=== PATIENT | female | born 1960 | race Caucasian/White ===

== ENCOUNTER 2019-08-17 12:55 | Outpatient (CLI) | payer OTHER, SELFPAY | END 2019-08-17 12:56 | disposition home or self-care (01) | LOC: CHSCARD 12:59 | PROVIDERS: Visit Provider Internal Medicine Pulmonary Disease | DX: J44.9 Chronic obstructive pulmonary disease, unspecified (principal) | CPT/HCPCS: 94060; 94726; 94729; 95012 ==

== ENCOUNTER 2020-09-18 16:20 | Emergency (ER) | payer OTHER, SELFPAY ==
[2020-09-18] VITALS (17 sets, daily range): BP systolic 119–161; BP diastolic 69–122; PULSE 83–117; RESP 15–26; TEMP 36.2; O2SAT 70–100
--- NOTE | ~2020-09-18 | XR_ITS ---
EXAMINATION: XR chest 1V portable 09/18/2020 17:04 INDICATION: Shortness of breath. COPD. PROCEDURE: AP portable chest COMPARISON: Comparison to multiple prior studies sequentially, with oldest reviewed study dated 10/31. FINDINGS: The lungs are clear. The cardiomediastinal silhouette is within normal limits. There are no pleural effusions. There is no pneumothorax suspected. The lungs are hyperinflated which is consistent with, but not diagnostic of chronic obstructive pulmo nary disease. IMPRESSION: 1: NO ACUTE CARDIOPULMONARY DISEASE. Reviewed, dictated and finalized at location A.
--- NOTE | 2020-09-18 16:24 | ECG_ITS ---
Measurements Intervals [place] Rate: 102 P: 85 [place]: 129 QRS: 80 QRSD: 80 T: 76 QT: 304 QTc: 398 Interpretive Statements SINUS TACHYCARDIA VENTRICULAR PREMATURE COMPLEXES POSSIBLE RIGHT ATRIAL ENLARGEMENT LEFT ATRIAL ENLARGEMENT BORDERLINE R WAVE PROGRESSION, ANTERIOR LEADS BORDERLINE ST ABNORMALITY- INFERIOR LEADS BASELINE ARTIFACT- I, II, III, AVR, AVL, AVF, V1-V6 BORDERLINE ECG Electronically Signed On 09-18-2020 17:23:21 CDT by Prabhu Bhardwaj D.O.
[2020-09-18] MEDS: methylPREDNISolone SOD SUCC 125 MG VIAL IV PUSH (16:30)
[2020-09-18 16:43] LABS: Alveolar/Arterial O2 Gradient 39.5 mmHg; Fractional Inspired Oxygen 34 %; HCO3 ABG 33.5 mEq/l (22.0-26.0); Oxygen Content ABG 18.6 %vol (16.0-22.0); Oxygen Saturation ABG 98.4 % (95.0-100.0); Oxyhemoglobin 96.9 % THb (90.0-100.0); PO2 ABG 130.9 mmHg (80.0-100.0); PO2 FiO2 Ratio Arterial Blood 3.85 %; Total Hemoglobin 13.5 g/dL (12.0-18.0); pH ABG 7.352 (7.350-7.450)
[2020-09-18 16:46] LABS: Device ROOM AIR; Liters per Minute 3.5 LPM; Modified Allen's Test Pass; PCO2 ABG 61.8 mmHg (35.0-45.0); Site Drawn LEFT RADIAL
[2020-09-18 16:49] LABS: Basophils Absolute Auto 0.1 K/mm3 (0.0-0.1); Basophils Percent Auto 1.1 % (0.2-1.2); Eosinophils Absolute Auto 0.2 K/mm3 (0-0.3); Eosinophils Percent Auto 3.2 % (0-4.4); Hematocrit 43.5 % (37.0-47.0); Hemoglobin 13.7 g/dL (12.0-15.0); Immature Granulocyte Absolute 0.02 K/mm3 (0.00-0.031); Immature Granulocyte Percent A 0.3 % (0-0.5); Lymphocytes Absolute Auto 1.08 K/mm3 (0.9-3.2); Lymphocytes Percent Auto 14.6 % (18.3-44.2); Mean Corpuscular HGB Conc 31.5 g/dl (32-36); Mean Corpuscular Hemoglobin 29.8 pg (26-34); Mean Corpuscular Volume 94.6 fl (80-100); Mean Platelet Volume 9.8 fl (7.4-10.4); Monocytes Percent Auto 13.7 % (2.6-8.5); Neutrophils Percent Auto 67.1 % (45.5-73.1); Platelet Count Result 292 k/mm3 (150-375); Red Cell Distribution Width 12.4 % (11.5-14.5); White Blood Count 7.4 K/mm3 (4.5-10.0)
[2020-09-18] MEDS: IPRATROPIUM BR 0.02% INH SOLN 0.5 MG/2.5 ML VIAL INHALATION (16:52)
[2020-09-18] MEDS: ALBUTEROL SULFATE NEB 2.5 MG/0.5 ML INH 5 MG INHALATION (16:52)
[2020-09-18 16:57] LABS: INR 0.9; Prothrombin Time 12.3 Seconds (11.1-14.7)
[2020-09-18 17:00] LABS: Alanine Aminotransferase 48 U/L (4-35); Albumin Level 4.3 g/dL (3.5-5.1); Alkaline Phosphatase 101 U/L (38-126); Anion Gap 4 mmol/L (8-16); Aspartate Amino Transferase 35 U/L (14-36); Bilirubin,Total 0.4 mg/dL (0.2-1.3); Blood Urea Nitrogen 12 mg/dL (7-17); Calcium 9.4 mg/dL (8.4-10.2); Carbon Dioxide 38 mmol/L (22-30); Chloride 97 mmol/L (98-107); Estimated CRCL calculation 77 ml/min; Estimated Glomerular Filt Rate > 60; Glucose 113 mg/dL (65-105); Potassium 4.4 mmol/L (3.4-5.0); Sodium 139 mmol/L (137-145)
[2020-09-18 17:11] LABS: NT Pro B Type Natriuretic Pept 124 PG/ML (5-100); Troponin I < 0.012 ng/mL (0.000-0.034)
--- NOTE | 2020-09-18 17:58 | ED.SOB ---
HPI - SOB/Dyspnea General Chief Complaint: Shortness of Breath/Dyspnea Stated Complaint: low o2 sat/sob Time Seen by Provider: 09/18/20 16:24 Source: patient Mode of arrival: wheelchair Limitations: no limitations History of Present Illness HPI Narrative: 60-year-old with a history of COPD on 3 L of home oxygen here with complaints of up shortness of breath since this afternoon. Patient states that her O2 saturations at home are in the 70%. She denies any unusual cough, fever or chills. No history of chest pain or Covid exposure. Patient states that she has an appointment with her airport baggage screener this week. MD elicited complaint: shortness of breath Onset (ago): hour(s) (5) Exacerbating factors: nothing Relieving factors: nothing Known history of: COPD Associated symptoms: denies other symptoms Related Data Home Medications Medication Instructions Recorded Confirmed albuterol sulfate 90 mcg/actuation 1 puff INHALATION Q4H PRN 08/31/19 aerosol inhaler anastrozole 1 mg tablet 1 mg PO DAILY 08/31/19 cholecalciferol (vitamin D3) 25 25 mcg PO DAILY 08/31/19 mcg (1,000 unit) tablet denosumab 60 mg/mL subcutaneous 60 mg SUB-Q [id number] 08/31/19 syringe ipratropium 0.5 mg-albuterol 3 mg 3 ml INHALATION Q4H PRN 08/31/19 (2.5 mg base)/3 mL nebulization soln fluticasone fur. 200 mcg-umeclid 1 inh INHALATION DAILY 09/13/20 62.5 mcg-vilant 25 mcg inhalat.powder Allergies Allergy/AdvReac Type Severity Reaction Status Date / Time No Known Allergies Allergy Unknown Verified 09/18/20 16:27 Review of Systems Review of Systems: All systems reviewed & are unremarkable except as noted in HPI and below Constitutional: Constitutional: Reports no additional constitutional complaints Eyes: Eyes: Reports no additional eye complaints ENT: Reports system reviewed and no additional complaints, except as documented Cardiovascular: Cardiovascular: Reports no additional cardiovascular complaints Respiratory: Respiratory: Reports as per HPI Gastrointestinal: Gastrointestinal: Reports no additional gastrointestinal complaints Musculoskeletal: Musculoskeletal: Reports no additional musculoskeletal complaints Neurologic: Reports system reviewed and no additional complaints, except as documented [facility] Past Medical History Medical History (Updated 09/18/20 @ 18:06 by Ivan Lozano MD) Breast cancer Right Breast Removed. SP Chemo. Completed Radiation 07-10-18. COPD (chronic obstructive pulmonary disease) Depression History of DVT (deep vein thrombosis) Nicotine dependence Quit 2019 Underweight Surgical History Surgical History History of cholecystectomy History of hysterectomy History of repair of rotator cuff Right Shoulder Family History Family History Other Diabetes mellitus Social History Social History Smoking packs per day: 1 Smoking cigarettes per day: 20.0 Years smoked: 45 Smoking pack-years: 45.00 Smoking status: Former smoker Tobacco type: cigarettes Alcohol intake: current Additional occupation/education comments: Employed at [employer] Gender identity (if verbalized by the patient): Female Exam Narrative: Exam Narrative: GENERAL: Thin in mild respiratory distress and anxious HEAD: Normocephalic, atraumatic. EYES: PERRLA and EOMI. ENT: Nares clear, no rhinorrhea or epistaxis. Mucous membranes moist. NECK: Supple. CHEST: Tachypneic, bilateral wheezing and poor air entry HEART: Regular rate and rhythm. No murmur heard. Normal peripheral pulses. ABDOMEN: Soft, nontender, nondistended, normal active bowel sounds. EXTREMITIES: Normal range of motion. No edema. SKIN: Warm, dry, no rash. NEURO: No focal deficits. Alert and oriented x3. PSYCH: Normal mood and affect. Course Course Emergency Course
== END 2020-09-18 18:40 | disposition home or self-care (01) ==
PROVIDERS: Emergency Provider Family Medicine; PCP Family Medicine
DX: J44.1 Chronic obstructive pulmonary disease with (acute) exacerbation (principal); Z99.81 Dependence on supplemental oxygen; Z87.891 Personal history of nicotine dependence; Z85.3 Personal history of malignant neoplasm of breast; Z90.11 Acquired absence of right breast and nipple; Z92.21 Personal history of antineoplastic chemotherapy; Z92.3 Personal history of irradiation
CPT/HCPCS: 36415; 36600; 71045; 80053; 82805; 83880; 84484; 85025; 85610; 87040; 93005; 94640; 96374; 99284; J2930

== ENCOUNTER 2020-10-03 12:28 | Observation (INO) | payer OTHER, SELFPAY ==
[2020-10-03] VITALS (18 sets, daily range): BP systolic 109–126; BP diastolic 70–81; PULSE 55–102; RESP 18–34; TEMP 35.8–36.7; O2SAT 90–98; BMI 21.5
--- NOTE | ~2020-10-03 | XR_ITS ---
XR chest 1V portable 10/03/2020 12:59 Indication: Dyspnea. COPD. Procedure: AP portable chest Comparison: Comparison to multiple prior studies sequentially, with oldest reviewed study dated 01/2019. Findings: Heart size normal. No focal air space disease, pulmonary edema, pleural effusion or suspect ed pneumothorax. Calcified granuloma left lower lung. Impression: 1: No acute cardiopulmonary disease. Reviewed, dictated and finalized at location B. Impression: 1: No acute cardiopulmonary disease.
--- NOTE | 2020-10-03 12:35 | ECG_ITS ---
Measurements Intervals [place] Rate: 94 P: 78 [place]: 124 QRS: 57 QRSD: 79 T: 59 QT: 337 QTc: 421 Interpretive Statements SINUS RHYTHM POSSIBLE RIGHT ATRIAL ENLARGEMENT POSSIBLE LEFT ATRIAL ENLARGEMENT DELAYED PRECORDIAL R/S TRANSITION BORDERLINE ST ABNORMALITY- INFERIOR LEADS BASELINE ARTIFACT- AVL, AVF, V4-V6 BORDERLINE ECG Electronically Signed On 10-03-2020 13:27:16 CDT by Prabhu Bhardwaj D.O.
[2020-10-03 13:13] LABS: Base Excess ABG 15.3 mmol/L (0-2); HCO3 ABG 45.2 mmol/L (23-29); Oxygen Content ABG 16.4 %vol (16.0-22.0); Oxygen Saturation ABG 90.3 % (95-97); Oxyhemoglobin 89.1 % (94-100); PO2 ABG 59.1 mmHg (80-90); Total Hemoglobin 13.1 g/dL; pH ABG 7.34 (7.35-7.45)
[2020-10-03 13:18] LABS: Basophils Absolute Auto 0.05 K/mm3 (0.00-0.10); Basophils Percent Auto 0.6 % (0.0-1.0); Eosinophils Absolute Auto 0.05 K/mm3 (0.02-0.50); Eosinophils Percent Auto 0.6 % (1.0-6.0); Hematocrit 39.6 % (35.0-49.0); Hemoglobin 12.1 g/dL (12.0-15.0); Immature Granulocyte Absolute 0.05 K/mm3 (0.00-0.00); Immature Granulocyte Percent A 0.6 % (0.0-0.0); Lymphocytes Absolute Auto 0.51 K/mm3 (1.10-4.50); Lymphocytes Percent Auto 5.8 % (18.0-42.0); Mean Corpuscular HGB Conc 30.6 g/dL (32.0-36.0); Mean Corpuscular Hemoglobin 30.2 pg (27.0-31.0); Mean Corpuscular Volume 98.8 fL (78.0-102.0); Mean Platelet Volume 9.7 fl (9.2-11.8); Monocytes Absolute Auto 0.78 K/mm3 (0.10-0.90); Monocytes Percent Auto 8.9 % (2.0-11.0); Neutrophils Absolute Auto 7.3 K/mm3 (1.7-7.2); Neutrophils Percent Auto 83.5 % (50.0-70.0); Platelet Count Result 252 K/mm3 (150-420); Red Blood Count 4.01 M/mm3 (4.20-5.40); Red Cell Distribution Width 12.4 % (11.6-14.4); White Blood Count 8.7 K/mm3 (4.8-10.8)
[2020-10-03 13:22] LABS: PCO2 ABG 86.3 mmHg (35-45)
[2020-10-03 13:23] LABS: Device NASAL CANNULA; Modified Allen's Test Pass; Site Drawn LEFT RADIAL
[2020-10-03 13:29] LABS: Partial Thromboplastin Time 25.1 SEC (23.90-30.70); Prothrombin Time 10.3 Seconds (9.50-12.10)
[2020-10-03 13:33] LABS: D Dimer 0.59 mg/L (0.19-0.50)
[2020-10-03] MEDS: ALBUTEROL SULFATE (*SP) INHALER 4 PUFF INHALATION (13:33)
[2020-10-03 13:45] LABS: Alanine Aminotransferase 44 U/L (14-59); Albumin Level 2.8 g/dL (3.4-5.0); Alkaline Phosphatase 77 U/L (46-116); Anion Gap 3 mmol/L (8-16); Aspartate Amino Transferase 19 U/L (15-37); Bilirubin,Total 0.4 mg/dL (0.00-1.00); Blood Urea Nitrogen 16 mg/dL (7-18); Calcium 9.4 mg/dL (8.5-10.1); Carbon Dioxide 42 mmol/L (21-32); Chloride 94 mmol/L (98-108); Estimated Glomerular Filt Rate > 60; Glucose 125 mg/dL (70-99); Osmolality Calculated 290 mOsm/kg (285-295); Potassium 4.2 mmol/L (3.5-5.1); Sodium 139 mmol/L (136-145); Total Protein 7.4 g/dL (6.4-8.2); Troponin I 9.9 ng/L (0.00-60.4)
[2020-10-03 13:59] LABS: SARS-CoV-2 RNA PCR Negative (Negative)
--- NOTE | 2020-10-03 14:00 | ED.SOB ---
HPI - SOB/Dyspnea General Chief Complaint: Shortness of Breath/Dyspnea Stated Complaint: ambulance Time Seen by Provider: 10/03/20 12:30 Source: patient and EMS Mode of arrival: EMS Limitations: no limitations History of Present Illness HPI Narrative: 60-year-old woman with a history of COPD brought to the emergency department by EMS after calling with a complaint of severe shortness of breath. EMS said that her sats were in the 80s on arrival but she responded well to nebulizer and her 25 of Solu-Medrol. Patient states she has had no cough or cold symptoms, chest pain, fevers, sick exposures ( she lives alone), palpitations or syncope. Shortness of breath has gotten worse over last several days. She is on 3 L by nasal cannula at home. She has had the 1st of 2 SARs immunizations and has not had the influenza vaccine. She was seen at [facility] on September 18 for a similar issue. Patient states that she had blood in her stools approximately 1 week ago that was bright red and liquid. She states she also has been having excessive gas and so she is taking Pepto-Bismol daily. She has since noticed that she has black stools. MD elicited complaint: shortness of breath Pertinent past history: COPD Onset (ago): day(s) (2-3) Timing: constant Severity: severe Exacerbating factors: lying flat and exertion Relieving factors: oxygen and bronchodilators Known history of: COPD Associated symptoms: wheezing Treatment prior to arrival: oxygen, bronchodilator and other ( Solu-Medrol) Related Data Home oxygen amount: 3 liters Home Medications Medication Instructions Recorded Confirmed albuterol sulfate 90 mcg/actuation 1 puff INHALATION Q4H PRN 08/31/19 10/03/20 aerosol inhaler anastrozole 1 mg tablet 1 mg PO DAILY 08/31/19 10/03/20 cholecalciferol (vitamin D3) 25 25 mcg PO DAILY 08/31/19 10/03/20 mcg (1,000 unit) tablet denosumab 60 mg/mL subcutaneous 60 mg SUB-Q [id number] 08/31/19 10/03/20 syringe ipratropium 0.5 mg-albuterol 3 mg 3 ml INHALATION Q4H PRN 08/31/19 10/03/20 (2.5 mg base)/3 mL nebulization soln fluticasone fur. 200 mcg-umeclid 1 inh INHALATION DAILY 09/13/20 10/03/20 62.5 mcg-vilant 25 mcg inhalat.powder Allergies Allergy/AdvReac Type Severity Reaction Status Date / Time No Known Allergies Allergy Unknown Verified 09/18/20 16:27 Review of Systems Review of Systems: All systems reviewed & are unremarkable except as noted in HPI and below Constitutional: Constitutional: Denies chills, Denies fever(s) and Denies weakness Eyes: Eyes: Denies change in vision and Denies photophobia ENT: Denies nasal congestion and Denies sore throat Cardiovascular: Cardiovascular: Denies chest pain, Denies rapid heart rate and Denies radiating jaw, neck or arm pain Respiratory: Respiratory: Denies cough, Reports dyspnea and Denies wheezing Gastrointestinal: Gastrointestinal: Denies abdominal pain and Denies vomiting Comments: black stools Genitourinary: Genitourinary: Denies hematuria and Denies dysuria Musculoskeletal: Musculoskeletal: Denies arthralgias and Denies joint swelling Integumentary/Breasts: Skin/Breast: Denies pruritus, Denies erythema and Denies rash Neurologic: Denies vertigo and Denies syncope Hematologic/Lymphatic: Hematologic/Lymphatic: Denies easy bleeding Allergic/Immunologic: Allergic/Immunologic: Denies lip swelling and Denies throat swelling [facility] Past Medical History Medical History (Updated 10/03/20 @ 14:46 by Chuy Whittington MD) Breast cancer Right Breast Removed. SP Chemo. Completed Radiation 07-10-18. COPD (chronic obstructive pulmonary disease) Depression History of DVT (deep vein thrombosis) Nicotine dependence Quit 2019 Underweight Surgical History Surgical History History of cholecystectomy History of hysterectomy History of repair of rotator cuff Right Shoulder Family History Fa
[2020-10-03 14:10] LABS: Influenza A QL RT-PCR Negative (Negative); Influenza B QL RT-PCR Negative (Negative)
[2020-10-03 14:14] LABS: Appearance Urine Sl Cloudy (Clear); Bilirubin Urine 1+ (Negative); Color Urine Yellow (Yellow); Glucose Urine UA Negative (Negative); Ketones Urine Trace (Negative); Leukocyte Esterase Ur Negative LEU/UL (Negative); Nitrate Urine Negative (Negative); Protein Urine 1+ (Negative); Specific Grav Ur >= 1.030 (1.010-1.020)
[2020-10-03 14:20] LABS: Add Urine Microscopic? YES; Bacteria Urine 3+ /hpf; Blood Urine Trace-Intact (Negative); RBC Urine 0-2 /hpf (0-2); Squamous Epithelial Cell Urine Rare /hpf (Few); WBC Urine None seen /hpf (0-3)
[2020-10-03 14:20] LABS: Occult Blood Negative (Negative)
--- NOTE | 2020-10-03 16:53 | PC.NURSE ---
60 year old white female admitted to floor room 204 from the ER with COPD exacerbation. Patient is on 3L/ NC at home. Patient becomes SOB with any movement. Patient lungs sound diminished throughout all lobes. C/O of dry cough, intermittently. Patient is currently in bed with oxygen on at 3L/NC. Patient denies any SOB at rest. Oriented patient to call light.
[2020-10-03] MEDS: PANTOPRAZOLE 40 MG TABLET PO (17:08)
[2020-10-03] MEDS: ENOXAPARIN 40 MG/0.4 ML SYRINGE SUB-Q (17:08)
[2020-10-03] MEDS: SODIUM CHLORIDE 0.9% IV 1,000 ML 60 ML IV CONT (17:46)
[2020-10-03] MEDS: methylPREDNISolone SOD SUCC 40 MG VIAL IV PUSH ×2 (17:46→21:55)
--- NOTE | 2020-10-03 17:57 | PC.NURSE ---
1750 Patient's friend brought patient's medication in. Patient took her Anastrozole 1mg and Calcium 600mg plus Vit D3. Dr. Whittington was notified patient took this medication.
[2020-10-03 18:14] LABS: Troponin I 7.6 ng/L (0.00-60.4)
[2020-10-03] MEDS: IPRATROPIUM 0.5 MG/ALBUTEROL SULFATE 2.5 MG AMPUL.NEB 3 ML INHALATION ×2 (18:58→22:55)
[2020-10-04] VITALS (20 sets, daily range): BP systolic 109–130; BP diastolic 52–76; PULSE 68–103; RESP 16–22; TEMP 35.7–36.6; O2SAT 82–100
[2020-10-04] MEDS: ACETAMINOPHEN 500 MG TABLET 1000 MG PO ×2 (00:19→09:22)
[2020-10-04 01:48] LABS: Troponin I 6.6 ng/L (0.00-60.4)
[2020-10-04] MEDS: IPRATROPIUM 0.5 MG/ALBUTEROL SULFATE 2.5 MG AMPUL.NEB 3 ML INHALATION ×4 (05:33→22:50)
[2020-10-04] MEDS: methylPREDNISolone SOD SUCC 40 MG VIAL IV PUSH ×3 (05:55→21:19)
[2020-10-04 06:43] LABS: Basophils Absolute Auto 0.01 K/mm3 (0.00-0.10); Basophils Percent Auto 0.1 % (0.0-1.0); Hematocrit 36.5 % (35.0-49.0); Hemoglobin 10.9 g/dL (12.0-15.0); Immature Granulocyte Absolute 0.03 K/mm3 (0.00-0.00); Immature Granulocyte Percent A 0.4 % (0.0-0.0); Lymphocytes Absolute Auto 0.36 K/mm3 (1.10-4.50); Lymphocytes Percent Auto 5.2 % (18.0-42.0); Mean Corpuscular HGB Conc 29.9 g/dL (32.0-36.0); Mean Corpuscular Hemoglobin 29.5 pg (27.0-31.0); Mean Corpuscular Volume 98.6 fL (78.0-102.0); Monocytes Absolute Auto 0.39 K/mm3 (0.10-0.90); Monocytes Percent Auto 5.7 % (2.0-11.0); Neutrophils Absolute Auto 6.1 K/mm3 (1.7-7.2); Neutrophils Percent Auto 88.6 % (50.0-70.0); Platelet Count Result 259 K/mm3 (150-420); Red Cell Distribution Width 12.2 % (11.6-14.4); White Blood Count 6.9 K/mm3 (4.8-10.8)
[2020-10-04 07:05] LABS: Alanine Aminotransferase 46 U/L (14-59); Albumin Level 2.5 g/dL (3.4-5.0); Alkaline Phosphatase 67 U/L (46-116); Anion Gap -1 mmol/L (8-16); Aspartate Amino Transferase 19 U/L (15-37); Bilirubin,Total 0.2 mg/dL (0.00-1.00); Blood Urea Nitrogen 16 mg/dL (7-18); Calcium 9.4 mg/dL (8.5-10.1); Carbon Dioxide 42 mmol/L (21-32); Chloride 98 mmol/L (98-108); Estimated CRCL calculation 84 ml/min; Estimated Glomerular Filt Rate > 60; Glucose 136 mg/dL (70-99); Osmolality Calculated 291 mOsm/kg (285-295); Potassium 4.7 mmol/L (3.5-5.1); Sodium 139 mmol/L (136-145); Total Protein 6.8 g/dL (6.4-8.2); Troponin I 6.1 ng/L (0.00-60.4)
[2020-10-04] MEDS: PANTOPRAZOLE 40 MG TABLET PO ×2 (09:22→16:09)
[2020-10-04] MEDS: SIMETHICONE 80 MG TAB.CHEW PO (09:22)
[2020-10-04] MEDS: CHOLECALCIFEROL 1,000 UNITS TABLET 1000 UNITS PO (09:22)
[2020-10-04] MEDS: FLUTICASONE/UMECLIDIN/VILANTER 100-62.5-25 MCG ELLIPTA 1 PUFF INHALATION (09:22)
[2020-10-04] MEDS: ANASTROZOLE (*CHEMO) 1 MG TABLET PO (09:23)
--- NOTE | 2020-10-04 11:52 | PM.SD2 ---
Same Day Admit/Disch: HPI History of Present Illness Chief complaint: COPD EXACERBATION HYPERCARBIC HYPOXIC RESP FAILURE Narrative: Rachel Farnsworth is a 60 year old female [facility] Past Medical History Medical History (Updated 10/03/20 @ 14:46 by Chuy Whittington MD) Breast cancer Right Breast Removed. SP Chemo. Completed Radiation 07-10-18. COPD (chronic obstructive pulmonary disease) Depression History of DVT (deep vein thrombosis) Nicotine dependence Quit 2019 Underweight Surgical History Surgical History History of cholecystectomy History of hysterectomy History of repair of rotator cuff Right Shoulder Family History Family History Other Diabetes mellitus Social History Social History Smoking packs per day: 1 Smoking cigarettes per day: 20.0 Years smoked: 45 Smoking pack-years: 45.00 Smoking status: Former smoker Tobacco type: cigarettes Second hand tobacco smoke exposure: No Alcohol intake: former Substance use type: does not use Additional occupation/education comments: Employed at [employer] Gender identity (if verbalized by the patient): Female Sexual Orientation (if Verbalized by the Patient): Straight or Heterosexual Spiritual care concerns: No Same Day Admit/Disch: Med Pre-admit Medications Home Medications Medication Instructions Recorded Confirmed Type albuterol sulfate 90 mcg/actuation 1 puff INHALATION Q4H PRN 08/31/19 10/03/20 History aerosol inhaler anastrozole 1 mg tablet 1 mg PO DAILY 08/31/19 10/03/20 History cholecalciferol (vitamin D3) 25 25 mcg PO DAILY 08/31/19 10/03/20 History mcg (1,000 unit) tablet denosumab 60 mg/mL subcutaneous 60 mg SUB-Q [id number] 08/31/19 10/03/20 History syringe ipratropium 0.5 mg-albuterol 3 mg 3 ml INHALATION Q4H PRN 08/31/19 10/03/20 History (2.5 mg base)/3 mL nebulization soln capsaicin 0.1 % topical cream 1 applic TOPICAL TID PRN #56.6 gm 03/23/20 10/03/20 Rx fluticasone fur. 200 mcg-umeclid 1 inh INHALATION DAILY 09/13/20 10/03/20 History 62.5 mcg-vilant 25 mcg inhalat.powder omeprazole 40 mg capsule,delayed 40 mg PO DAILY #30 cap 09/13/20 10/03/20 Rx release simethicone 180 mg capsule 180 mg PO BID PRN #20 cap 09/13/20 10/03/20 Rx prednisone 20 mg PO BID #10 tablet 09/18/20 10/03/20 Rx DS: Data Data Completed and Pending Labs on day of discharge: Labs from last 24 hours 10/04/20 10/04/20 10/04/20 06:06 06:06 01:25 WBC 6.9 RBC 3.70 L Hgb 10.9 L Hct 36.5 MCV 98.6 MCH 29.5 MCHC 29.9 L RDW 12.2 Plt Count 259 MPV 10.0 Immature Gran % (Auto) 0.4 H Neut % (Auto) 88.6 H Lymph % (Auto) 5.2 L [place] % (Auto) 5.7 Eos % (Auto) 0.0 L Baso % (Auto) 0.1 Lymph # (Auto) 0.36 L [place] # (Auto) 0.39 Eos # (Auto) 0.00 L Baso # (Auto) 0.01 Abs Immat Gran (auto) 0.03 H Absolute Neuts (auto) 6.1 Absolute Nucleated RBC 0.00 Nucleated RBC % 0.0 PT INR APTT D-Dimer Puncture Site ABG pH ABG pCO2 ABG pO2 ABG PO2/FiO2 Ratio ABG HCO3 ABG O2 Saturation ABG O2 Content ABG Base Excess A-a Gradient Oxyhemoglobin Total Hemoglobin O2 Delivery Device O2 Liters/Min FiO2 Sodium 139 Potassium 4.7 Chloride 98 Carbon Dioxide 42 H Anion Gap -1 L BUN 16 Creatinine 0.64 Estim Creat Clear Calc 84 Estimated GFR > 60 Glucose 136 H Calculated Osmolality 291 Calcium 9.4 Total Bilirubin 0.2 AST 19 ALT 46 Alkaline Phosphatase 67 Troponin I 6.1 6.6 Total Protein 6.8 Albumin 2.5 L Urine Color Urine Appearance Urine pH Ur Specific [place] Urine Protein Urine Glucose (UA) Urine Ketones Ur Blood (Man) Urine Nitrate Urine Bilirubin
--- NOTE | 2020-10-04 13:19 | HOMEO2EVAL ---
Home Oxygen Evaluation RC: Home Oxygen (O2) Evaluation Start: 10/04/20 11:45 Freq: ONCE Status: Active Protocol: RPE Activity Type Activity Date Activity User E-Sign Co-Sign Detail Recorded Client Recorded Date Recorded By Document 10/04/20 12:50 SJB [id number] 10/04/20 13:19 SJB Document 10/04/20 12:52 SJB [id number] 10/04/20 13:19 SJB Document 10/04/20 12:55 SJB [id number] 10/04/20 13:19 SJB 10/04/20 10/04/20 10/04/20 12:50 12:52 12:55 Home O2 Evaluation Test Phase Resting Exercise Exercise Oxygen Delivery Room Air Room Air Nasal Cannula Oxygen Flow Rate (L/min) 6 Pulse Oximetry (90-100 %) 94 82 L 92 Pulse Rate (60-100 beats/min) 90 100 100 Activity Tolerance Good Fair Rating of Perceived Dyspnea (PD) +1 Mild, +2 Mild, Some +4 Severe Noticeable to Difficulty, Difficulty, the Participant Noticeable to Participant but Not to an the Observer Cannot Continue Observer Rate of Perceived Exertion (PE) 15 Hard 16 Ambulation Distance (feet) 50 20 Home Oxygen Evaluation Comments Pt had to take Pt maintained a rest, sitting an Sp02 of 92% in wheelchair. on 6 lpm during O2 starting remainder of at 2 lpm, walk to room. titrated to 6 lpm. Treatment Charges O2 Evaluation - Inpatient
--- NOTE | 2020-10-04 14:17 | PM.IMHP ---
H&P: HPI History of Present Illness Date/Time: 10/04/20 14:17 Rachel Farnsworth is a 60 y/o female who comes to the hospital with SOB over the last few days. She was admitted under observation for her COPD and she did have good improvement in the ER after nebulizer and steroids. EMS picked Pt up at home and found SpO2 to be in the 80s. Pt states she is feeling better but does not believe she can return home at this time and take care of her ADLs. Pt has Hx of COPD and was recently seen at [facility] for the same c/c. Pt states that she has not been able to walk about her home without becoming SOB with increased WOB. Pt states she would like to stay at least another night as she does not feel ready to return home. Pt c/o epitgastric pain and likens it to having gas. She states it does get worse after eating some of the times. She has taken Pepto for this which helped a little. Pt states that she has had bright red stool and now it is dark, likely from the Pepto. Stool for blood obtained and was negative for blood. Pt denies chest pain, urinary symptoms, dizziness, visual changes, and musculoskeletal complaints. <NERISSA Larkin - Last Filed: 10/04/20 14:55> Chief Complaint: SOB <NERISSA Larkin - Last Filed: 10/04/20 14:55> Review of Systems Constitutional: Constitutional: Reports no additional constitutional complaints, Denies fever(s), Denies headache(s) and Reports weakness (with walking short distances and this causes SOB) <NERISSA Larkin - Last Filed: 10/04/20 14:55> ENT: Reports system reviewed and no additional complaints, except as documented, Denies vertigo and Denies dizziness <NERISSA Larkin - Last Filed: 10/04/20 14:55> Cardiovascular: Cardiovascular: Reports no additional cardiovascular complaints, Denies chest pain, Denies chest pain at rest and Denies chest pain with activity <NERISSA Larkin - Last Filed: 10/04/20 14:55> Respiratory: Respiratory: Reports no additional respiratory complaints, Denies chest congestion, Reports dyspnea and Reports dyspnea on exertion <NERISSA Larkin - Last Filed: 10/04/20 14:55> Gastrointestinal: Gastrointestinal: Reports no additional gastrointestinal complaints, Reports dyspepsia (at times), Denies nausea and Denies vomiting <NERISSA Larkin - Last Filed: 10/04/20 14:55> Genitourinary: Genitourinary: Reports no additional female genitourinary complaints, Denies hematuria, Denies nocturia, Denies dysuria and Denies flank pain <NERISSA Larkin - Last Filed: 10/04/20 14:55> Musculoskeletal: Musculoskeletal: Reports no additional musculoskeletal complaints <NERISSA Larkin - Last Filed: 10/04/20 14:55> Integumentary/Breasts: Skin/Breast: Reports other (Hx breast CA) <NERISSA Larkin - Last Filed: 10/04/20 14:55> Neurologic: Reports system reviewed and no additional complaints, except as documented, Denies confusion, Denies dizziness, Denies syncope, Denies headache(s), Denies lack of coordination and Denies loss of vision <NERISSA Larkin - Last Filed: 10/04/20 14:55> Psychiatric: Psychiatric: Reports no additional psychiatric complaints, Denies anxiety and Denies confusion <NERISSA Larkin - Last Filed: 10/04/20 14:55> Endocrine: Endocrine: Reports no additional endocrine complaints <NERISSA Larkin - Last Filed: 10/04/20 14:55> [facility] Past Medical History Medical History: Medical History (Updated 10/04/20 @ 14:46 by NERISSA Larkin) Breast cancer Right Breast Removed. SP Chemo. Completed Radiation -09-23. COPD (chronic obstructive pulmonary disease) Depression History of DVT (deep vein thrombosis) Nicotine dependence Quit 2019 Underweight <NERISSA Larkin - Last Filed: 10/04/20 14:55> Surgical History Surgical History: Surgical History History of cholecystectomy History of hysterectomy His
[2020-10-04] MEDS: ENOXAPARIN 40 MG/0.4 ML SYRINGE SUB-Q (16:07)
[2020-10-05] VITALS (17 sets, daily range): BP systolic 109–128; BP diastolic 58–64; PULSE 65–91; RESP 16–22; TEMP 36.1–36.7; O2SAT 91–100
[2020-10-05 05:30] LABS: Hematocrit 34.6 % (35.0-49.0); Hemoglobin 10.4 g/dL (12.0-15.0); Mean Corpuscular HGB Conc 30.1 g/dL (32.0-36.0); Mean Corpuscular Hemoglobin 29.6 pg (27.0-31.0); Mean Corpuscular Volume 98.6 fL (78.0-102.0); Mean Platelet Volume 9.9 fl (9.2-11.8); Platelet Count Result 259 K/mm3 (150-420); Red Blood Count 3.51 M/mm3 (4.20-5.40); Red Cell Distribution Width 12.6 % (11.6-14.4); White Blood Count 12.3 K/mm3 (4.8-10.8)
[2020-10-05] MEDS: IPRATROPIUM 0.5 MG/ALBUTEROL SULFATE 2.5 MG AMPUL.NEB 3 ML INHALATION ×4 (05:36→22:52)
[2020-10-05 05:40] LABS: Anion Gap 0 mmol/L (8-16); Blood Urea Nitrogen 16 mg/dL (7-18); Calcium 8.8 mg/dL (8.5-10.1); Carbon Dioxide 43 mmol/L (21-32); Chloride 96 mmol/L (98-108); Estimated CRCL calculation 80 ml/min; Estimated Glomerular Filt Rate > 60; Glucose 152 mg/dL (70-99); Osmolality Calculated 292 mOsm/kg (285-295); Potassium 4.5 mmol/L (3.5-5.1); Sodium 139 mmol/L (136-145)
[2020-10-05] MEDS: methylPREDNISolone SOD SUCC 40 MG VIAL IV PUSH ×3 (06:30→21:11)
--- NOTE | 2020-10-05 06:47 | PC.NURSE ---
Pt given methylprednisolone 40 mg IVP as ordered.
[2020-10-05] MEDS: PANTOPRAZOLE 40 MG TABLET PO ×2 (08:21→17:07)
[2020-10-05] MEDS: CHOLECALCIFEROL 1,000 UNITS TABLET 1000 UNITS PO (08:21)
[2020-10-05] MEDS: ANASTROZOLE (*CHEMO) 1 MG TABLET PO (08:21)
[2020-10-05] MEDS: FLUTICASONE/UMECLIDIN/VILANTER 100-62.5-25 MCG ELLIPTA 1 PUFF INHALATION (08:22)
--- NOTE | 2020-10-05 08:31 | HOMEO2EVAL ---
Home Oxygen Evaluation RC: Home Oxygen (O2) Evaluation Start: 10/04/20 11:45 Freq: ONCE Status: Active Protocol: RPE Activity Type Activity Date Activity User E-Sign Co-Sign Detail Recorded Client Recorded Date Recorded By Document 10/04/20 12:50 SJB [id number] 10/05/20 07:59 SJB Document 10/04/20 12:52 SJB [id number] 10/05/20 07:59 SJB Document 10/04/20 12:53 SJB [id number] 10/05/20 07:59 SJB Document 10/04/20 12:54 SJB [id number] 10/05/20 07:59 SJB Document 10/04/20 12:55 SJB [id number] 10/05/20 07:59 SJB Document 10/04/20 12:56 SJB [id number] 10/05/20 07:59 SJB Document 10/04/20 12:57 SJB [id number] 10/05/20 07:59 SJB 10/04/20 10/04/20 10/04/20 12:50 12:52 12:53 Home O2 Evaluation Test Phase Resting Exercise Exercise Oxygen Delivery Room Air Room Air Nasal Cannula Oxygen Flow Rate (L/min) 2 Pulse Oximetry (90-100 %) 94 82 L 82 L Pulse Rate (60-100 beats/min) 90 100 101 H Activity Tolerance Fair Poor Rating of Perceived Dyspnea (PD) +1 Mild, +3 Moderate +4 Severe Noticeable to Difficulty, But Difficulty, the Participant Can Continue Participant but Not to an Cannot Continue Observer Rate of Perceived Exertion (PE) 15 Hard 17 Very Hard Ambulation Distance (feet) 50 Home Oxygen Evaluation Comments Pt had to take Pt still a rest, sitting sitting in down in wheelchair wheelchair. 02 trying to catch started at 2 her breath and lpm. to get her Sp02 up. Will increase to 3 lpm. Treatment Charges O2 Evaluation - Inpatient 10/04/20 10/04/20 10/04/20 12:54 12:55 12:56 Home O2 Evaluation Test Phase Exercise Exercise Exercise Oxygen Delivery Nasal Cannula Nasal Cannula Nasal Cannula Oxygen Flow Rate (L/min) 3 4 5 Pulse Oximetry (90-100 %) 83 L 86 L 87 L Pulse Rate (60-100 beats/min) 100 103 H 100 Activity Tolerance Poor Fair Rating of Perceived Dyspnea (PD) +4 Severe +4 Severe Difficulty, Difficulty, Participant Participant Cannot Continue Cannot Continue Rate of Perceived Exertion (PE) 17 Very Hard 17 Very Hard 13 Somewhat Hard Ambulation Distance (feet) Home Oxygen Evaluation Comments Still sitting Sitting in Sitting in in wheelchair, wheelchair, wheelchair, will increase will increase will increase to 4 lpm. 02 to 5 lpm. 02 to 6 lpm. Treatment Charges 10/04/20 12:57 Home O2 Evaluation Test Phase Exercise Oxygen Delivery Nasal Cannula Oxygen Flow Rate (L/min) 6 Pulse Oximetry (90-100 %) 100 Pulse Rate (60-100 beats/min) 93 Activity Tolerance Fair Rating of Perceived Dyspnea (PD) +3 Moderate Difficulty, But Can Continue Rate of Perceived Exertion (PE) 13 Somewhat Hard Ambulation Distance (feet) 20 Home Oxygen Evaluation Comments Pt was able to finish walk on 6 lpm with an Sp02 of 92%, walking approx. 20 ft. Treatment Charges
--- NOTE | 2020-10-05 13:00 | PM.IMPN ---
Progress Note: A&P Assessment and Plan (1) COPD exacerbation: Code(s): J44.1 - Chronic obstructive pulmonary disease with (acute) exacerbation <NERISSA Larkin - Last Filed: 10/05/20 13:49> Status: Acute <NERISSA Larkin - Last Filed: 10/05/20 13:49> Assessment and Plan: 10/04/2020 DuoNeb, Solu-Medrol, Supplemental Oxygen, monitor VS and SpO2, Albuterol PRN, Walk test performed and report indicates the need to increase O2 at home to 6 L/min when up and walking, Pt may also benefit from the use of a CPAP/sleep study, Pt is amicable to CPAP at this time. 10/05/2020 Continue with above, continue to monitor SpO2 and administer supplemental O2, Pt is to have L/min increased to 6 when up and walking to restroom or chair etc. Sent PCP a note regarding CPAP/sleep evaluation, Pt states breathing is improved. <NERISSA Larkin - Last Filed: 10/05/20 13:49> (2) UTI (urinary tract infection): Code(s): N39.0 - Urinary tract infection, site not specified <NERISSA Larkin - Last Filed: 10/05/20 13:49> Status: Acute <VIV LarkinC - Last Filed: 10/05/20 13:49> Assessment and Plan: 10/05/2020 Urine Cx was resulted yesterday after I completed yesterdays note. Pt was started on Rocephin, today she received 2nd dose. <NERISSA Larkin - Last Filed: 10/05/20 13:49> (3) Breast cancer: Code(s): C50.919 - Malignant neoplasm of unspecified site of unspecified female breast <NERISSA Larkin - Last Filed: 10/05/20 13:49> Status: Acute <NERISSA Larkin - Last Filed: 10/05/20 13:49> Assessment and Plan: 10/04/2020 Continue with Anastrozole 10/05/2020 ... <NERISSA Larkin - Last Filed: 10/05/20 13:49> (4) Elevated d-dimer: Code(s): R79.89 - Other specified abnormal findings of blood chemistry <Galo EscalonaNERISSA Hackett - Last Filed: 10/05/20 13:49> Status: Acute <Galo Kaplan NERISSA Mack - Last Filed: 10/05/20 13:49> Assessment and Plan: 10/04/2020 D-Dimer 0.59 and with calculation for age there is little concern for clots at this time, Pt has a Hx of DVT and Pt states this was in her stomach, Pt not currently on anticoagulation at home. Currently on Lovenox. 10/05/2020 ... <Galo NERISSA Beaver - Last Filed: 10/05/20 13:49> Subjective Date/time seen: 10/05/20 13:00 Pt states she is about 50/50 with wanting to go home. She admits she is a bit scared to go home at this time since she lives alone even though her neighbors do help her from time to time and her ex- drives her to and from appointments. Pt was informed that she does have a UTI and has had 2 doses of Rocephin and was informed that a 3rd dose would be appropriate for such an infection. Pt is ok with staying in the hospital for 1 more night for COPD and UTI treatment. Pt does not have any complaints at this time today. <NERISSA Larkin - Last Filed: 10/05/20 13:49> Review of Systems Constitutional: Constitutional: Reports no additional constitutional complaints <NERISSA Larkin - Last Filed: 10/05/20 13:49> ENT: Reports system reviewed and no additional complaints, except as documented <NERISSA Larkin - Last Filed: 10/05/20 13:49> Cardiovascular: Cardiovascular: Reports no additional cardiovascular complaints, Denies dyspnea, Reports dyspnea on exertion and Denies orthopnea <NERISSA Larkin - Last Filed: 10/05/20 13:49> Respiratory: Respiratory: Reports no additional respiratory complaints, Denies dyspnea and Reports dyspnea on exertion <NERISSA Larkin - Last Filed: 10/05/20 13:49> Gastrointestinal: Gastrointestinal: Reports no additional gastrointestinal complaints <NERISSA Larkin - Last Filed: 10/05/20 13:49> Genitourinary: Genitourinary: Reports no additional female genitourinary complaints <NERISSA Larkin - Last Filed: 10/05/20 13:49>
--- NOTE | 2020-10-05 13:26 | PC.NURSE ---
Up to [facility], noted increase work of breathing due to activity, oxygen increased during activity
--- NOTE | 2020-10-05 16:07 | PC.NURSE ---
C/o pain at IV insertion site, dressing loose and IV unstable; IV flushed with SNS, patient states no pain during flush. IV dressing changed. Patient states feels better.
[2020-10-05] MEDS: ENOXAPARIN 40 MG/0.4 ML SYRINGE SUB-Q (17:07)
--- NOTE | 2020-10-05 21:00 | PC.NURSE ---
Given turkey sandwich and ate 100%
--- NOTE | 2020-10-05 23:30 | PC.NURSE ---
pt resting in bed watching tv, no evidence of distress noted, tele monitor and alarms on, belongings within reach, pt denies any other needs at this time.
[2020-10-06] VITALS (7 sets, daily range): BP systolic 113–123; BP diastolic 61–72; PULSE 60–68; RESP 16–22; TEMP 36.2–37.1; O2SAT 96–99
--- NOTE | 2020-10-06 01:36 | PC.NURSE ---
pt sleeping, respirations even and regular, no evidence of distress noted at this time
[2020-10-06] MEDS: ACETAMINOPHEN 500 MG TABLET 1000 MG PO (05:03)
[2020-10-06] MEDS: methylPREDNISolone SOD SUCC 40 MG VIAL IV PUSH (05:04)
[2020-10-06] MEDS: IPRATROPIUM 0.5 MG/ALBUTEROL SULFATE 2.5 MG AMPUL.NEB 3 ML INHALATION (05:36)
[2020-10-06 05:52] LABS: Hematocrit 33.9 % (35.0-49.0); Hemoglobin 10.2 g/dL (12.0-15.0); Mean Corpuscular HGB Conc 30.1 g/dL (32.0-36.0); Mean Corpuscular Hemoglobin 29.4 pg (27.0-31.0); Mean Corpuscular Volume 97.7 fL (78.0-102.0); Mean Platelet Volume 9.8 fl (9.2-11.8); Platelet Count Result 259 K/mm3 (150-420); Red Blood Count 3.47 M/mm3 (4.20-5.40); White Blood Count 10.6 K/mm3 (4.8-10.8)
[2020-10-06 06:03] LABS: Anion Gap -1 mmol/L (8-16); Blood Urea Nitrogen 18 mg/dL (7-18); Carbon Dioxide 41 mmol/L (21-32); Chloride 97 mmol/L (98-108); Estimated CRCL calculation 76 ml/min; Estimated Glomerular Filt Rate > 60; Glucose 131 mg/dL (70-99); Osmolality Calculated 287 mOsm/kg (285-295); Potassium 4.7 mmol/L (3.5-5.1); Sodium 137 mmol/L (136-145)
--- NOTE | 2020-10-06 07:51 | PM.DS ---
DS: Admitting Diagnosis Admitting Diagnosis Admitting Diagnosis: COPD Exacerbation DS: Discharge Diagnosis Discharge Diagnosis (1) COPD exacerbation: Code(s): J44.1 - Chronic obstructive pulmonary disease with (acute) exacerbation Status: Acute Assessment and Plan: 10/04/2020 DuoNeb, Solu-Medrol, Supplemental Oxygen, monitor VS and SpO2, Albuterol PRN, Walk test performed and report indicates the need to increase O2 at home to 6 L/min when up and walking, Pt may also benefit from the use of a CPAP/sleep study, Pt is amicable to CPAP at this time. 10/05/2020 Continue with above, continue to monitor SpO2 and administer supplemental O2, Pt is to have L/min increased to 6 when up and walking to restroom or chair etc. Sent PCP a note regarding CPAP/sleep evaluation, Pt states breathing is improved. 10/06/2020 Pt had done well with her recovery from her COPD, Will send Pt home with a steroid taper pack and she will need to f/u with PCP in about 1 week. She may benefit from CPAP/Sleep study, her walk test indicated she needs to increase her O2 to 6L/min with walking and then return to 3L/min when at rest. (2) UTI (urinary tract infection): Code(s): N39.0 - Urinary tract infection, site not specified Status: Acute Assessment and Plan: 10/05/2020 Urine Cx was resulted yesterday after I completed yesterdays note. Pt was started on Rocephin, today she received 2nd dose. 10/06/2020 Pt will get 2nd dose of Rocephin today and will send Pt home with PO Ab as well. (3) Breast cancer: Code(s): C50.919 - Malignant neoplasm of unspecified site of unspecified female breast Status: Acute Assessment and Plan: 10/04/2020 Continue with Anastrozole 10/05/2020 ... (4) Elevated d-dimer: Code(s): R79.89 - Other specified abnormal findings of blood chemistry Status: Acute Assessment and Plan: 10/04/2020 D-Dimer 0.59 and with calculation for age there is little concern for clots at this time, Pt has a Hx of DVT and Pt states this was in her stomach, Pt not currently on anticoagulation at home. Currently on Lovenox. 10/05/2020 ... DS: Summary Hospital Course Hospital Course: Pt breathing improved during her stay, She does need to wear NC at 6L/min when up and walking at home but at rest 3L/min is sufficient, a UTI was discovered and treated, Pt to be sent home with PO Ab for the UTI. Time Spent with Patient Time attestation: Total time spent providing and/or coordinating discharge services: < 30 min Exam Const: General: cooperative, comfortable and no acute distress Nutritional Appearance: average body habitus HENMT: Head: normal to inspection Ears: hearing grossly normal bilaterally Neck: Neck: normal visual inspection and no JVD Resp: Effort & Inspection: normal respiratory effort and labored (Only with walking) Auscultation: diminished lung sounds diffuse Cardio: Rate: regular rate Heart sounds: S1 normal heart sound present, S2 normal heart sound present and Murmur heart sound present systolic (Difficult to hear d/t breathing) I/ GI: GI Palp: Yes Soft to palpation and No Tenderness to palpation present (GI) Auscultation: normal bowel sounds Skin: General skin exam: pallor Lesions: no lesions Neuro: General: oriented to person, oriented to place and oriented to time Cranial nerves: Yes CN's II-XII intact bilaterally (grossly intact) Cognition (Neuro): normal cognition Speech: normal speech Extrem: General: normal to inspection and no pedal edema DS: Data Data Completed and Pending Labs on day of discharge: Labs from last 24 hours 10/06/20 10/06/20 05:22 05:22 WBC 10.6 RBC 3.47 L Hgb 10.2 L Hct 33.9 L MCV 97.7 MCH 29.4 MCHC 30.1 L RDW 13.0 Plt Count 259 MPV 9.8 Sodium 137 Potassium 4.7 Chloride 97 L Carbon Dioxide 41 H Anion Gap -1 L BUN 18 Creatinine 0.71 Estim Creat Clear Calc 76 Estimated GFR > 60 Glucose 131 H Ca
[2020-10-06] MEDS: FLUTICASONE/UMECLIDIN/VILANTER 100-62.5-25 MCG ELLIPTA 1 PUFF INHALATION (09:49)
[2020-10-06] MEDS: ANASTROZOLE (*CHEMO) 1 MG TABLET PO (09:52)
[2020-10-06] MEDS: CHOLECALCIFEROL 1,000 UNITS TABLET 1000 UNITS PO (09:52)
[2020-10-06] MEDS: PANTOPRAZOLE 40 MG TABLET PO (09:52)
--- NOTE | 2020-10-06 12:45 | PC.NURSE ---
All belongings gathered together and sent home with patient. All discharge instructions and education reviewed with patient, patient states understanding. Denies any questions at this time. IV site removed, tip intact and dressing applied to site. Patient accompanied to front door via wheelchair by nurse. Left via private vehicle with family member. Pt. using portable 02 tank from home.
--- NOTE | 2020-10-12 13:43 | PC.NURSE ---
Pt states she received and understood her discharge instructions. Pt also states everything was great .
== END 2020-10-06 12:45 | disposition home or self-care (01) ==
LOC: CHSED 14:46 → CHS2ND 14:58
PROVIDERS: Nurse Practitioner Family; Admitting Provider Emergency Medicine; Emergency Provider Emergency Medicine; PCP Family Medicine; Visit Provider Emergency Medicine
DX: J44.1 Chronic obstructive pulmonary disease with (acute) exacerbation (principal); J96.02 Acute respiratory failure with hypercapnia; J96.01 Acute respiratory failure with hypoxia; N39.0 Urinary tract infection, site not specified; R63.6 Underweight; F32.9 Major depressive disorder, single episode, unspecified; Z20.822 Contact with and (suspected) exposure to COVID-19; Z99.81 Dependence on supplemental oxygen; Z85.3 Personal history of malignant neoplasm of breast; Z92.21 Personal history of antineoplastic chemotherapy; Z86.718 Personal history of other venous thrombosis and embolism; Z92.3 Personal history of irradiation; Z87.891 Personal history of nicotine dependence; R19.5 Other fecal abnormalities
CPT/HCPCS: 36415; 36600; 71045; 80048; 80053; 81001; 82272; 82805; 84484; 85025; 85027; 85380; 85610; 85730; 87040; 87077; 87086; 87088; 87186; 87502; 93005; 94618; 94640; 96361; 96365; 96372; 96374; 96375; 96376; 99285; A9270; C9803; G0378; J0696; J1650; J2920; J7030; U0003; U0005

== ENCOUNTER 2021-01-02 14:04 | Emergency (ER) | payer OTHER, SELFPAY ==
--- NOTE | ~2021-01-02 | XR_ITS ---
EXAMINATION: XR chest 2V DATE: 01/02/2021 14:56 INDICATION: Shortness of breath. TECHNIQUE: Frontal and lateral views of the chest were obtained on 3 radiographs. COMPARISON: Chest single view 10/03/2020, chest CT 02/25/2006 FINDINGS: The lungs are hyperexpanded, consistent with emphysema. A calcified left lung nodule is con sistent with old granulomatous disease. No pleural effusion or pneumothorax. The heart size is normal . IMPRESSION: 1. Emphysema. Reviewed, dictated and finalized at location A. IMPRESSION: 1. Emphysema.
--- NOTE | ~2021-01-02 | CT_ITS ---
EXAMINATION: CTA chest PE protocol EXAM DATE: 01/02/2021 15:43 INDICATION: Shortness of breath with elevated D-dimer SOB . COPD. TECHNIQUE: Spiral CTA of the chest (pulmonary arteries) was performed with 100 cc Omnipaque 350 intr avenous contrast injection. Images were acquired during the pulmonary arterial phase. Coronal maxi mum intensity projection 3D-reconstructions were created by the technologist on dedicated workstation . Axial, coronal and sagittal reformatted images were reviewed. The dose-length product (DLP) for t his examination was 209.28 mGy-cm. The exposure was tailored according to patient size (auto mA exp osure control), and iterative reconstruction (ASIR) was used as additional dose reduction technique. Comparison is made to prior examination from 04/08/2015. FINDINGS: The main, central pulmonary arteries are dilated which can indicate elevated pulmonary graham rial pressure, pulmonary arterial hypertension. Pulmonary arteries are well opacified and without in traluminal filling defects. No thoracic aortic dissection. Somewhat spiculated region of right upp er lobe linear opacity is unchanged compared to 2015 consistent with scarring. There is severe emphys serina and moderate hyperinflation. There is left lower lobe calcified granuloma. No There are no pleur al or pericardial effusions. Tracheobronchial tree is patent. There is no mediastinal, hilar or a xillary lymphadenopathy. There is no pneumothorax. Heart normal in size. There is moderate machelle nary arterial calcification, arterial sclerosis. Upper abdomen is unremarkable. There is thoracic spondylosis without osteoblastic or osteolytic lesions identified. IMPRESSION: 1. No pulmonary emboli or acute cardiac pulmonary findings. 2. Severe emphysema. 3. Moderate hyperinflation. Reviewed, dictated and finalized at location A.
[2021-01-02 14:20] VITALS: BP 118/82; PULSE 107; RESP 18; TEMP 36.4; O2SAT 95
--- NOTE | 2021-01-02 14:23 | ECG_ITS ---
Measurements Intervals [place] Rate: 91 P: 80 KS: 139 QRS: 74 QRSD: 81 T: 71 QT: 333 QTc: 411 Interpretive Statements SINUS RHYTHM DELAYED PRECORDIAL R/S TRANSITION BASELINE ARTIFACT- V5-V6 BORDERLINE ECG Electronically Signed On 01-02-2021 15:21:56 CDT by Prabhu Bhardwaj D.O.
[2021-01-02] MEDS: methylPREDNISolone SOD SUCC 125 MG VIAL IV PUSH (14:32)
[2021-01-02] MEDS: IPRATROPIUM 0.5 MG/ALBUTEROL SULFATE 2.5 MG AMPUL.NEB 3 ML INHALATION (14:37)
[2021-01-02 14:49] LABS: Basophils Absolute Auto 0.06 K/mm3 (0.00-0.10); Eosinophils Percent Auto 1.7 % (1.0-6.0); HCO3 ABG 35.5 mmol/L (23-29); Hemoglobin 11.9 g/dL (12.0-15.0); Immature Granulocyte Absolute 0.01 K/mm3 (0.00-0.00); Immature Granulocyte Percent A 0.2 % (0.0-0.0); Lymphocytes Percent Auto 15.7 % (18.0-42.0); Mean Corpuscular HGB Conc 32.2 g/dL (32.0-36.0); Mean Corpuscular Hemoglobin 29.9 pg (27.0-31.0); Mean Platelet Volume 10.1 fl (9.2-11.8); Monocytes Absolute Auto 0.62 K/mm3 (0.10-0.90); Monocytes Percent Auto 10.8 % (2.0-11.0); Neutrophils Percent Auto 70.6 % (50.0-70.0); PCO2 ABG 60.9 mmHg (35-45); PO2 ABG 107.6 mmHg (80-90); Platelet Count Result 236 K/mm3 (150-420); Red Blood Count 3.98 M/mm3 (4.20-5.40); Red Cell Distribution Width 12.3 % (11.6-14.4); White Blood Count 5.7 K/mm3 (4.8-10.8); pH ABG 7.38 (7.35-7.45)
[2021-01-02 14:51] LABS: Device NASAL CANNULA; Modified Allen's Test Pass; Site Drawn LEFT RADIAL
[2021-01-02 14:53] VITALS: PULSE 94; RESP 16; O2SAT 98
[2021-01-02 14:55] VITALS: PULSE 95; O2SAT 98
[2021-01-02 15:02] VITALS: PULSE 86; RESP 16; O2SAT 100
[2021-01-02 15:02] LABS: Partial Thromboplastin Time 23.6 SEC (23.90-30.70); Prothrombin Time 10.3 Seconds (9.50-12.10)
[2021-01-02 15:06] LABS: D Dimer 0.85 mg/L (0.19-0.50)
[2021-01-02 15:10] LABS: Alanine Aminotransferase 27 U/L (14-59); Albumin Level 3.5 g/dL (3.4-5.0); Alkaline Phosphatase 57 U/L (46-116); Anion Gap 6 mmol/L (8-16); Aspartate Amino Transferase 16 U/L (15-37); Bilirubin,Total 0.2 mg/dL (0.00-1.00); Blood Urea Nitrogen 16 mg/dL (7-18); Calcium 9.7 mg/dL (8.5-10.1); Carbon Dioxide 35 mmol/L (21-32); Chloride 99 mmol/L (98-108); Estimated CRCL calculation 98 ml/min; Estimated Glomerular Filt Rate > 60; Glucose 114 mg/dL (70-99); Magnesium 1.8 mg/dL (1.8-2.4); NT Pro B Type Natriuretic Pept 144 pg/mL (0-125); Osmolality Calculated 292 mOsm/kg (285-295); Potassium 3.9 mmol/L (3.5-5.1); Sodium 140 mmol/L (136-145); Total Protein 7.1 g/dL (6.4-8.2); Troponin I 5.5 ng/L (0.00-60.4)
--- NOTE | 2021-01-02 16:03 | ED.SOB ---
HPI - SOB/Dyspnea General Chief Complaint: Shortness of Breath/Dyspnea Stated Complaint: DR SENT TO ER Source: patient and family Mode of arrival: ambulatory History of Present Illness HPI Narrative: this is a 60-year-old female with a history of COPD that presents from her primary care physician's office with some increased shortness of breath, but after talking to the patient she has been having increased shortness of breath with exertion for months currently on 3-1/2 to4L of oxygen at home for COPD, currently no fever or chills no excessive shortness of breath no chest pain or chest tightness no nausea or vomiting no abdominal pain. Patient has nebulizers at home. MD elicited complaint: shortness of breath Pertinent past history: COPD Onset (ago): month(s) Timing: intermittent Severity: mild Exacerbating factors: exertion Related Data Home Medications Medication Instructions Recorded Confirmed albuterol sulfate 90 mcg/actuation 1 puff INHALATION Q4H PRN 08/31/19 01/02/21 aerosol inhaler anastrozole 1 mg tablet 1 mg PO DAILY 08/31/19 01/02/21 cholecalciferol (vitamin D3) 25 25 mcg PO DAILY 08/31/19 01/02/21 mcg (1,000 unit) tablet denosumab 60 mg/mL subcutaneous 60 mg SUB-Q [id number] 08/31/19 01/02/21 syringe ipratropium 0.5 mg-albuterol 3 mg 3 ml INHALATION Q4H PRN 08/31/19 01/02/21 (2.5 mg base)/3 mL nebulization soln fluticasone fur. 200 mcg-umeclid 1 inh INHALATION DAILY 09/13/20 01/02/21 62.5 mcg-vilant 25 mcg inhalat.powder Allergies Allergy/AdvReac Type Severity Reaction Status Date / Time No Known Allergies Allergy Unknown Verified 01/02/21 07:12 Review of Systems Review of Systems: All systems reviewed & are unremarkable except as noted in HPI and below PMFSH Past Medical History Medical History (Updated 01/02/21 @ 16:06 by Arie Yeager MD) Breast cancer Right Breast Removed. SP Chemo. Completed Radiation 07-10-18. COPD (chronic obstructive pulmonary disease) Depression History of DVT (deep vein thrombosis) Nicotine dependence Quit 2019 Underweight Surgical History Surgical History History of cholecystectomy History of hysterectomy History of repair of rotator cuff Right Shoulder Family History Family History Other Diabetes mellitus Social History Social History Smoking packs per day: 1 Smoking cigarettes per day: 20.0 Years smoked: 45 Smoking pack-years: 45.00 Smoking status: Former smoker Tobacco type: cigarettes Second hand tobacco smoke exposure: No Alcohol intake: former Substance use type: does not use Additional occupation/education comments: Employed at [employer] Gender identity (if verbalized by the patient): Female Spiritual care concerns: No Exam Const: General: no acute distress and alert Orientation/consciousness: patient oriented x3 HENMT: Head: normal to inspection and contusion Eyes: Conjunctivae: conjunctivae normal Pupils: Equal, round and reactive pupils present Neck: Neck: normal visual inspection, no lymphadenopathy and no meningeal signs Chest: Chest palpation & inspection: normal inspection of the chest Resp: Effort & Inspection: normal respiratory effort Auscultation: diminished lung sounds Cardio: Rate: regular rate and tachycardic GI: GI Palp: Yes Soft to palpation : General: Yes no CVA tenderness Back/Spine/Pelvis: Back: no CVA tenderness Skin: General skin exam: normal color Rashes: no rashes Extrem: General: normal to inspection Psych: Mental Status: mental status grossly normal Affect: normal affect Thought content: Yes Normal thought content present Course Course Emergency Course: Reassessment of patient after receiving a nebulizer treatment and IV steroid feels much better, her lungs are moving air
[2021-01-02 16:37] VITALS: BP 118/74; PULSE 84; RESP 20; O2SAT 94
== END 2021-01-02 16:40 | disposition home or self-care (01) ==
PROVIDERS: Emergency Provider Emergency Medicine; PCP Family Medicine
DX: J44.9 Chronic obstructive pulmonary disease, unspecified (principal); Z87.891 Personal history of nicotine dependence
CPT/HCPCS: 36415; 36600; 71046; 71275; 80053; 82805; 83735; 83880; 84484; 85025; 85380; 85610; 85730; 93005; 94640; 96365; 96375; 99283; 99284; J0696; J2930; Q9967

== ENCOUNTER 2021-01-09 13:54 | Outpatient (CLI) | payer OTHER, SELFPAY ==
--- NOTE | ~2021-01-09 | XR_ITS ---
EXAMINATION: XR knee LT 3V EXAM DATE: 01/09/2021 14:14 INDICATION: Bilateral knee pain, hurts to bear weight. No known recent injury. TECHNIQUE: Three projections of the left knee. Correlation is made to contralateral knee same date. FINDINGS: No evidence osteochondral defect or joint body in the left knee joint. Joint spaces are u niform and symmetric to contralateral side. There are no acute fractures or dislocations identified. There is no subcutaneous gas. The soft tissue is unremarkable. There are no radiopaque foreign pepito dies. No joint effusion. IMPRESSION: Unremarkable left knee x-ray. Reviewed, dictated and finalized at location A.
--- NOTE | ~2021-01-09 | XR_ITS ---
EXAMINATION: XR knee RT 3V EXAM DATE: 01/09/2021 14:14 INDICATION: Bilateral knee pain. Hurts to bear weight. TECHNIQUE: Three projections of the right knee. Correlation is made to contralateral knee same date. FINDINGS: No evidence osteochondral defect or joint body in the right knee joint. Joint spaces are uniform and symmetric to contralateral side. No joint effusion. There are no acute fractures or disl ocations identified. There is no subcutaneous gas. The soft tissue is unremarkable. There are no radiopaque foreign bodies. IMPRESSION: Unremarkable right knee exam. Reviewed, dictated and finalized at location A.
== END 2021-01-09 13:55 | disposition home or self-care (01) ==
LOC: CHSIMG 13:57
PROVIDERS: PCP Family Medicine; Visit Provider Family Medicine
DX: M25.562 Pain in left knee (principal); M25.561 Pain in right knee
CPT/HCPCS: 73562

== ENCOUNTER 2021-02-21 13:42 | Outpatient (CLI) | payer OTHER, SELFPAY ==
--- NOTE | ~2021-02-21 | XR_ITS ---
EXAMINATION: XR wrist LT min 3V DATE: 02/21/2021 14:04 INDICATION: Left wrist pain. TECHNIQUE: 4 views of left wrist were obtained. COMPARISON: None. FINDINGS: Bone alignment is normal. No fracture. There is mild osteoarthritis of fifth metacarpophala ngeal joint. IMPRESSION: 1. Mild osteoarthritis of fifth metacarpophalangeal joint. Reviewed, dictated and finalized at location B.
--- NOTE | ~2021-02-21 | XR_ITS ---
EXAMINATION: XR elbow LT min 3V DATE: 02/21/2021 14:04 INDICATION: Left elbow pain TECHNIQUE: Anteroposterior, two oblique and lateral views of the left elbow were obtained. COMPARISON: None. FINDINGS: Alignment is normal. No fracture. Mild osteoarthritis at the left elbow with mild nonuniform narrowin g. No erosions to suggest inflammatory arthritis. No left elbow joint effusion. Soft tissues are unre markable. IMPRESSION: 1. Mild osteoarthritis at the left elbow. No joint effusion or acute osseous abnormality. Reviewed, dictated and finalized at location A. IMPRESSION: 1. Mild osteoarthritis at the left elbow. No joint effusion or acute osseous ab normality.
== END 2021-02-21 13:43 | disposition home or self-care (01) ==
LOC: CHSIMG 13:44
PROVIDERS: PCP Family Medicine; Visit Provider Family Medicine
DX: M25.532 Pain in left wrist (principal); M25.522 Pain in left elbow
CPT/HCPCS: 73080; 73110

== ENCOUNTER 2021-08-21 14:50 | Outpatient (CLI) | payer MEDICARE, MEDICAID, SELFPAY ==
--- NOTE | ~2021-08-21 | XR_ITS ---
XR shoulder LT min 2V DATE: 08/21/2021 15:38 INDICATION: Bilateral shoulder pain and limited range of motion for 2 months TECHNIQUE: 4 views COMPARISON: None FINDINGS: There is diffuse osteopenia. Normal alignment at the acromioclavicular and glenohumeral joints. No fracture, dislocation, perioste al reaction or bone destruction. Cervical spine degenerative changes are noted. IMPRESSION: Osteopenia Reviewed, dictated and finalized at location B. INGS DAM PUMPER IMPRESSION: Osteopenia
--- NOTE | ~2021-08-21 | XR_ITS ---
XR shoulder RT min 2V DATE: 08/21/2021 15:38 INDICATION: Bilateral shoulder pain, limited range of motion TECHNIQUE: 5 views COMPARISON: None FINDINGS: There is osteopenia. No fracture or dislocation, periosteal reaction or bone destruction is evident. There is evidence of rotator cuff atrophy. No significant abnormal right shoulder calcifica tion is noted. IMPRESSION: Osteopenia Rotator cuff atrophy Reviewed, dictated and finalized at location B. MBLY PERSON
--- NOTE | ~2021-08-21 | XR_ITS ---
XR femur LT min 2V DATE: 08/21/2021 15:37 INDICATION: Fall 2 weeks ago. Distal lateral upper leg pain TECHNIQUE: AP and lateral views of left femur COMPARISON: None FINDINGS: No fracture or dislocation, periosteal reaction or bone destruction. Normal alignment at th e left hip and knee joints. The pubic symphysis and left sacroiliac joint are intact. IMPRESSION: No significant abnormality of the left femur Reviewed, dictated and finalized at location B. IOVASCULAR SURGEON
== END 2021-08-21 14:51 | disposition home or self-care (01) ==
LOC: CHSIMG 14:54
PROVIDERS: PCP Family Medicine; Visit Provider Family Medicine
DX: M25.511 Pain in right shoulder (principal); M25.512 Pain in left shoulder
CPT/HCPCS: 73030; 73552

== ENCOUNTER 2021-08-24 08:43 | Outpatient (CLI) | payer MEDICARE, MEDICAID, SELFPAY ==
--- NOTE | ~2021-08-24 | CT_ITS ---
EXAMINATION: CT chest abdomen pelvis w con DATE: 08/24/2021 09:53 INDICATION: Right upper arm and chest pain in region of mastectomy. Nausea. TECHNIQUE: Computed tomography (CT) of the chest, abdomen, and pelvis was performed with 100 cc Omnip aque 350 intravenous contrast. Automated exposure control and iterative reconstruction technique were employed. Exam dose: 1180.15 mGy-cm total exam DLP. COMPARISON: 01/02/2021 CT pulmonary scan FINDINGS: CHEST CT: Status post right mastectomy. Normal heart size. There is coronary artery calcification. No pericardial effusion. No hilar or mediastinal mass lesion or lymphadenopathy. No thoracic aortic aneurysm or dissection. There are prominent emphysematous changes of the lungs. Left lower lobe calcified pulmonary granuloma. No pulmonary infiltrate or consolidation or pulmonary mass lesion is evident. ABDOMEN/PELVIS CT: The liver, spleen, pancreas, adrenal glands and kidneys are unremarkable. Status post cholecystectomy . No bile duct or pancreatic duct dilatation. No urinary tract calculus or hydroureteronephrosis. 3.7 cm duodenal diverticulum. Normal appendix. There are scattered diverticula of left and right colo n; no CT evidence of diverticulitis. No bowel obstruction, bowel wall thickening, pneumatosis or intraperitoneal free air. Status post hysterectomy. The urinary bladder is unremarkable. No suspicious osteolytic or osteoblastic lesions are noted. IMPRESSION: Status post right mastectomy; no recurrent or metastatic tumor is identified Emphysema Status post cholecystectomy 3.7 cm duodenal diverticulum Diverticulosis of colon; no CT evidence of diverticulitis Status post hysterectomy Reviewed, dictated and finalized at Location A. Reviewed, dictated and finalized at location B. E FERRYBOAT OPERATOR
[2021-08-24 09:14] LABS: Estimated Glomerular Filt Rate > 60
== END 2021-08-24 08:44 | disposition home or self-care (01) ==
LOC: CHSIMG 08:44
PROVIDERS: PCP Family Medicine; Visit Provider Family Medicine
DX: M79.621 Pain in right upper arm (principal); Z85.3 Personal history of malignant neoplasm of breast; N64.89 Other specified disorders of breast; Z90.10 Acquired absence of unspecified breast and nipple
CPT/HCPCS: 71260; 74177; Q9967

== ENCOUNTER 2021-10-15 20:00 | Inpatient (IN) | payer MEDICARE, MEDICAID, SELFPAY ==
[2021-10-15] VITALS (7 sets, daily range): BP systolic 125–158; BP diastolic 59–83; PULSE 82–116; RESP 16–24; TEMP 37.2; O2SAT 98–100
--- NOTE | ~2021-10-15 | XR_ITS ---
EXAMINATION: XR chest 2V DATE: 10/19/2021 09:53 INDICATION: Increasing supplemental oxygen requirement. Shortness of breath. TECHNIQUE: Frontal and lateral views of the chest were obtained. COMPARISON: Chest single view 10/15/2021, chest CT 10/15/2021 FINDINGS: The lungs are hyperexpanded with lucencies, consistent with severe emphysema. A calcified l eft lung nodule is consistent with old granulomatous disease. No pleural effusion or pneumothorax. Th e heart size is normal. IMPRESSION: 1. Severe emphysema. Reviewed, dictated and finalized at location A. IMPRESSION: 1. Severe emphysema.
--- NOTE | ~2021-10-15 | XR_ITS ---
EXAMINATION: XR chest 1V portable Exam Date/Time: 10/15/2021 20:30 CDT CLINICAL HISTORY: CP THAT RADIATES DOWN LT ARM AND SOB, HX COPD Comparison: 01/02/2021. RESULT: Lines, tubes, and devices: None. Lungs and pleura: Clear. Cardiomediastinal silhouette: Stable cardiomediastinal silhouette. Other: No acute osseous or upper abdominal finding. IMPRESSION: No acute cardiopulmonary process. Reviewed, dictated and finalized at location K.
--- NOTE | ~2021-10-15 | CT_ITS ---
EXAMINATION: CTA chest PE protocol EXAM DATE: 10/15/2021 22:47 INDICATION: Elevated d-dimer. TECHNIQUE: Spiral CTA of the chest (pulmonary arteries) was performed with 100 cc Omnipaque 350 intr avenous contrast injection. Images were acquired during the pulmonary arterial phase. Coronal maxi mum intensity projection 3D-reconstructions were created by the technologist on dedicated workstation . Axial, coronal and sagittal reformatted images were reviewed. The dose-length product (DLP) for t his examination was 540.41 mGy-cm. The exposure was tailored according to patient size (auto mA exp osure control), and iterative reconstruction (ASIR) was used as additional dose reduction technique. Comparison is made to prior examination from 08/24/2021, 01/02/2021. FINDINGS: The main, central pulmonary arteries are dilated which can indicate elevated pulmonary graham rial pressure, pulmonary arterial hypertension. Pulmonary arteries are well opacified and without in traluminal filling defects. No thoracic aortic dissection. There is left lower lobe calcified 1 cm granuloma. There is moderate emphysema and hyperinflation. There is small region of right upper lobe opacity on images 47-49 unchanged, consistent with scarring. There are no pleural or pericardial ef fusions. Tracheobronchial tree is patent. There is no mediastinal, hilar or axillary lymphadenopa thy. There is no pneumothorax. Heart normal in size. There is moderate coronary arterial calcif ication, arterial sclerosis. Cholecystectomy clips. There is thoracic spondylosis without osteoblasti c or osteolytic lesions identified. IMPRESSION: 1. Dilated pulmonary arteries without filling defects. 2. Moderate emphysema and hyperinflation. 3. Postinfectious residua Reviewed, dictated and finalized at location B.
--- NOTE | 2021-10-15 20:03 | ECG_ITS ---
Measurements Intervals [place] Rate: 110 P: 83 AR: 135 QRS: 81 QRSD: 78 T: 75 QT: 305 QTc: 413 Interpretive Statements SINUS TACHYCARDIA POSSIBLE RIGHT ATRIAL ENLARGEMENT [0.25mV P WAVE] POSSIBLE LEFT ATRIAL ENLARGEMENT [-0.1mV P WAVE IN V1/V2] MODERATE ST DEPRESSION [0.05+ mV ST DEPRESSION] ABNORMAL ECG COMPARED TO ECG 01/02/2021 14:34:02 SINUS T[address]YCARDIA NOW PRESENT ST (T WAVE) DEVIATION NOW PRESENT Electronically Signed On 10-17-2021 17:54:09 CDT by Amado Senior M.D.
[2021-10-15 20:20] LABS: Basophils Absolute Auto 0.1 K/mm3 (0.0-0.1); Basophils Percent Auto 0.7 % (0.2-1.2); Eosinophils Absolute Auto 0.1 K/mm3 (0-0.3); Eosinophils Percent Auto 0.7 % (0-4.4); Hematocrit 38.7 % (37.0-47.0); Hemoglobin 11.9 g/dL (12.0-15.0); Immature Granulocyte Absolute 0.03 K/mm3 (0.00-0.031); Immature Granulocyte Percent A 0.3 % (0-0.5); Lymphocytes Absolute Auto 1.19 K/mm3 (0.9-3.2); Lymphocytes Percent Auto 11.1 % (18.3-44.2); Mean Corpuscular HGB Conc 30.7 g/dl (32-36); Mean Corpuscular Hemoglobin 29.4 pg (26-34); Mean Corpuscular Volume 95.6 fl (80-100); Neutrophils Absolute Auto 8.4 K/mm3 (1.3-6.7); Neutrophils Percent Auto 78.2 % (45.5-73.1); Platelet Count Result 277 k/mm3 (150-375); Red Blood Count 4.05 M/mm3 (4.2-5.4); Red Cell Distribution Width 13.4 % (11.5-14.5); White Blood Count 10.8 K/mm3 (4.5-10.0)
[2021-10-15 20:30] LABS: INR 0.9; Prothrombin Time 12.1 Seconds (11.1-14.7)
[2021-10-15 20:31] LABS: Partial Thromboplastin Time 25.1 SECONDS (22.3-36.8)
--- NOTE | 2021-10-15 20:35 | ED.SOB ---
HPI - SOB/Dyspnea General Chief Complaint: Shortness of Breath/Dyspnea Stated Complaint: SOB and chest pain Time Seen by Provider: 10/15/21 20:05 Source: patient, family and RN notes reviewed Mode of arrival: EMS Limitations: no limitations History of Present Illness HPI Narrative: 61-year-old female with history of breast cancer and COPD presented to emergency department for evaluation of worsening shortness of breath and intermittent chest pain that radiates down her left arm. Patient is normally on 4 L of oxygen at baseline and increases to 6 L with ambulation. Patient states over the last few days she has had to bump up to 8 L with ambulation and has had increased recovery time after ambulation. Patient states that she has no prior cardiac history. Patient has never had a stress test. Patient was resting after walking today when she had substernal chest pain that radiated to her left arm. This happened just prior to arrival. Patient called EMS and was treated with aspirin prior to arrival. During my examination patient denied any chest pain. Related Data Home Medications Medication Instructions Recorded Confirmed cholecalciferol (vitamin D3) 25 25 mcg PO DAILY 08/31/19 10/16/21 mcg (1,000 unit) tablet anastrozole 1 mg PO DAILY 10/15/21 10/16/21 [id number]-[id number]-[id number] 1 inh INHALATION DAILY 10/16/21 10/16/21 [Trelegy Ellipta] Allergies Allergy/AdvReac Type Severity Reaction Status Date / Time No Known Allergies Allergy Unknown Verified 10/15/21 20:18 Review of Systems Review of Systems: CONSTITUTIONAL: Denies fever, chills, or sweats. EYES: Denies visual changes, redness, or discharge. ENT: Denies rhinorrhea, congestion, sore throat, or otalgia. CARDIOVASCULAR: See HPI RESPIRATORY: Denies cough or dyspnea. GASTROINTESTINAL: Denies abdominal pain, nausea, vomiting, or diarrhea. GENITOURINARY: Denies dysuria or hematuria. SKIN: Denies rash or itching. MUSCULOSKELETAL: Denies back pain, joint pain, or myalgia. NEUROLOGIC: Denies headache, numbness, or weakness. [facility] Past Medical History Medical History (Updated 10/16/21 @ 04:03 by Jazmin Pabon MD) Breast cancer Right Breast Removed. SP Chemo. Completed Radiation 1-3-19. COPD (chronic obstructive pulmonary disease) Depression History of DVT (deep vein thrombosis) Nicotine dependence Quit 2019 Underweight Surgical History Surgical History History of cholecystectomy History of hysterectomy History of repair of rotator cuff Right Shoulder Family History Family History Other Diabetes mellitus Social History Social History (Updated 10/10/21 @ 07:09 by Natasha Freedman) Smoking packs per day: 1 Smoking cigarettes per day: 20.0 Years smoked: 45 Smoking pack-years: 45.00 Smoking status: Former smoker Tobacco type: cigarettes Alcohol intake: never Substance use: never Substance use type: does not use Additional occupation/education comments: Employed at [employer] Gender identity (if verbalized by the patient): Female Sexual Orientation (if Verbalized by the Patient): Straight or Heterosexual Spiritual care concerns: No Exam Narrative: APPEARANCE: Well appearing, no pain, no distress, well-nourished. HEAD: normocephalic, atraumatic. EYES: PERRLA/EOMI, conjunctivae clear. NOSE: Normal no drainage RESPIRATORY: Airway patent, tachypneic and increased work of breathing. CARDIOVASCULAR: Regular rate and rhythm without murmurs rubs or gallops. Reproducible left-sided chest wall tenderness to palpation. ABDOMINAL: Soft, nontender, nondistended, normal bowel sounds MUSCULOSKELETAL: Moves all extremities. Strength/ROM intact, No edema, No calf tenderness. NEURO: Alert. Cranial nerves II through XII intact. Grossly intact SKIN: Warm, dry. Normal Color Course Course Emergency Course: EKG showe
[2021-10-15 20:36] LABS: Alanine Aminotransferase 39 U/L (4-35); Albumin Level 4.5 g/dL (3.5-5.1); Alkaline Phosphatase 98 U/L (38-126); Anion Gap 8 mmol/L (8-16); Aspartate Amino Transferase 32 U/L (14-36); Bilirubin,Total 0.2 mg/dL (0.2-1.3); Blood Urea Nitrogen 17 mg/dL (7-17); Calcium 9.5 mg/dL (8.4-10.2); Carbon Dioxide 31 mmol/L (22-30); Chloride 99 mmol/L (98-107); Estimated CRCL calculation 87 ml/min; Estimated Glomerular Filt Rate > 60; Glucose 133 mg/dL (65-110); Potassium 4.1 mmol/L (3.4-5.0); Sodium 138 mmol/L (137-145)
[2021-10-15 20:46] LABS: NT Pro B Type Natriuretic Pept 153 pg/mL (5-100); Troponin I < 0.012 ng/mL (0.000-0.034)
[2021-10-15 21:01] LABS: D Dimer 0.81 ug/mL (<0.48)
--- NOTE | 2021-10-15 23:48 | PM.IMHP ---
H&P: HPI History of Present Illness Date/Time: 10/15/21 23:48 Chief Complaint: Chest pain. Narrative: This is a 61-year-old female with past medical history significant for COPD/emphysema, chronic hypoxic respiratory failure on supplemental oxygen at home, right breast cancer status post mastectomy, former tobacco user. Patient presents today for evaluation of chest pain which is retrosternal has been happening on and off for the last week or so mainly with exertion and worsening shortness of breath, patient has an intermittent cough at times brings up clear phlegm, denies any changes to a sputum quality, patient denies any fevers, rigors or chills, no nausea, no vomiting ,no abdominal pain, no dizziness, no lightheadedness, no syncope or near syncope, no leg swelling, no calves pain. Patient required increased amount of supplemental oxygen by nasal cannula. Preliminary workup was unrevealing a CT angio protocol of the chest showed no acute pulmonary embolism, chest x-ray was clear. Patient has been admitted for further evaluation, management and treatment. Review of Systems Review of Systems: Chest pain with shortness of breath Constitutional: Constitutional: Denies chills, Denies fever(s) and Denies night sweats Eyes: Eyes: Denies change in vision ENT: Denies dysphagia, Denies vertigo, Denies dizziness, Denies nasal congestion, Denies nasal discharge, Denies nasal obstruction and Denies odynophagia Cardiovascular: Cardiovascular: Reports chest pain, Reports chest pain at rest, Denies pedal edema, Denies leg edema, Denies lightheadedness, Denies radiating jaw, neck or arm pain, Denies palpitations and Reports dyspnea on exertion Respiratory: Respiratory: Denies change in phlegm color, Denies chest congestion, Reports cough, Denies excessive phlegm production, Denies pain on inspiration and Reports dyspnea Gastrointestinal: Gastrointestinal: Denies abdominal pain, Denies dyspepsia, Denies heartburn, Denies nausea and Denies vomiting Genitourinary: Genitourinary: Denies dysuria Musculoskeletal: Musculoskeletal: Denies arthralgias Integumentary/Breasts: Skin/Breast: Denies rash Neurologic: Denies focal weakness and Denies Sensory deficit (Neuro) Psychiatric: Psychiatric: Reports no additional psychiatric complaints and Reports as per HPI Endocrine: Endocrine: Denies cold intolerance, Denies heat intolerance, Denies polydipsia, Denies polyuria and Denies palpitations Hematologic/Lymphatic: Hematologic/Lymphatic: Reports no additional hematologic/lymphatic complaints and Reports as per HPI Allergic/Immunologic: Allergic/Immunologic: Reports no additional allergic/immunologic complaints and Reports as per HPI [facility] Past Medical History Medical History (Updated 10/16/21 @ 04:03 by Jazmin Pabon MD) Breast cancer Right Breast Removed. SP Chemo. Completed Radiation 07-10-18. COPD (chronic obstructive pulmonary disease) Depression History of DVT (deep vein thrombosis) Nicotine dependence Quit 2019 Underweight Surgical History Surgical History History of cholecystectomy History of hysterectomy History of repair of rotator cuff Right Shoulder Family History Family History Other Diabetes mellitus Social History Social History (Updated 10/10/21 @ 07:09 by Natasha Freedman) Smoking packs per day: 1 Smoking cigarettes per day: 20.0 Years smoked: 45 Smoking pack-years: 45.00 Smoking status: Former smoker Tobacco type: cigarettes Alcohol intake: never Substance use: never Substance use type: does not use Additional occupation/education comments: Employed at [employer] Gender identity (if verbalized by the patient): Female Sexual Orientation (if Verbalized by the Patient): Straight or Heterosexual Spiritual care concerns: No Meds Home Medications and Allergies Home Medications
[2021-10-16] VITALS (18 sets, daily range): BP systolic 130–156; BP diastolic 54–93; PULSE 63–105; RESP 16–22; TEMP 35.9–36.8; O2SAT 96–100; BMI 28.1
--- NOTE | 2021-10-16 01:26 | PC.NURSE ---
This patient, Rachel Farnsworth, was admitted to IMU status, and placed in IMU Room 232-01. Patient/family oriented to hospital policies and general routines including ID bracelet, bed and alarms, visiting hours, pain management, procedures, bathroom and other care routines, personal items, smoking policy, room service/diet, and visiting hours. Valuables list has been completed. Information on how to activate the Rapid Response Team has been discussed. Patient/Family are encouraged to report perceived risks to care and to ask questions if they do not understand what they are told or what they should do.
--- NOTE | 2021-10-16 01:33 | PC.NURSE ---
Patient states that she gets nebulizer treatments, but cannot confirm name of medication. She states that she, gets oxygen needs met from [facility].
--- NOTE | 2021-10-16 01:35 | ADMGEN ---
This patient, Rachel Farnsworth, was admitted to IMU Room 232-01. Patient/family oriented to hospital policies and general routines including ID bracelet, bed and alarms, visiting hours, pain management, procedures, bathroom and other care routines, personal items, smoking policy, room service/diet, and visiting hours. Information on how to activate the Rapid Response Team has been discussed. Patient/Family are encouraged to report perceived risks to care and to ask questions if they do not understand what they are told or what they should do.
[2021-10-16] MEDS: methylPREDNISolone SOD SUCC 125 MG VIAL 60 MG IV PUSH ×2 (16:09→20:16)
--- NOTE | 2021-10-16 17:42 | PM.IMPN ---
Progress Note: A&P Assessment and Plan (1) Chest pain: Qualifiers: Chest pain type: unspecified Qualified Code(s): R07.9 - Chest pain, unspecified Code(s): R07.9 - Chest pain, unspecified Status: Acute Assessment and Plan: ct pe is negative ct shows- Dilated pulmonary arteries without filling defects. Moderate emphysema and hyperinflation. Postinfectious residua (2) COPD (chronic obstructive pulmonary disease): Qualifiers: COPD type: COPD with acute exacerbation Qualified Code(s): J44.1 - Chronic obstructive pulmonary disease with (acute) exacerbation Code(s): J44.9 - Chronic obstructive pulmonary disease, unspecified Status: Acute Assessment and Plan: solumedrol iv and breathing treatments (3) Chronic respiratory failure with hypoxia: Code(s): J96.11 - Chronic respiratory failure with hypoxia Status: Acute Assessment and Plan: Continue supplemental oxygen by nasal cannula on 4 liters presently (4) Nicotine dependence: Code(s): F17.200 - Nicotine dependence, unspecified, uncomplicated Status: Acute Assessment and Plan: pt adviced to quit smoking (5) Breast cancer: Code(s): C50.919 - Malignant neoplasm of unspecified site of unspecified female breast Status: Acute Assessment and Plan: Status post right breast mastectomy.on hormonal tablet Subjective Date/time seen: 10/16/21 17:42 Interval history: 61-year-old female with past medical history significant for COPD/emphysema, chronic hypoxic respiratory failure on supplemental oxygen at home, right breast cancer status post mastectomy, former tobacco user. Patient presents today for evaluation of chest pain which is retrosternal has been happening on and off for the last week or so mainly with exertion and worsening shortness of breath, patient has an intermittent cough at times brings up clear phlegm, denies any changes to a sputum quality, patient denies any fevers, rigors or chills, no nausea, no vomiting ,no abdominal pain, no dizziness, no lightheadedness, no syncope or near syncope, no leg swelling, no calves pain. admitted for sob Review of Systems Review of Systems: All systems reviewed & are unremarkable except as noted in HPI and below Exam Narrative: Patient is laying in a stretcher. Const: General: cooperative, comfortable, no acute distress, well developed, alert, awake, ill appearing chronically and other (Nasal cannula in place) Nutritional Appearance: average body habitus Orientation/consciousness: patient oriented x3 Resp: Effort & Inspection: normal respiratory effort and able to speak in complete sentences Auscultation: clear to auscultation bilaterally, no crackles, no rales, no rhonchi, no wheezes and diminished lung sounds Cardio: Jugular venous distension: no JVD Rate: regular rate Rhythm: regular rhythm Heart sounds: S1 normal heart sound present and S2 normal heart sound present Objective Data Vital Signs Vital Signs: Vital Signs - 24 hr 10/15/21 20:01 10/15/21 20:21 10/15/21 20:30 Temperature 37.2 C Pulse Rate 114 H 116 H Respiratory Rate 24 H Blood Pressure 158/74 H Pulse Oximetry 100 99 10/15/21 20:31 10/15/21 21:00 10/15/21 22:00 Temperature Pulse Rate 116 H 102 H 90 Respiratory Rate 20 18 Blood Pressure 149/83 H 132/73 Pulse Oximetry 98 100 10/15/21 23:00 10/16/21 00:00 10/16/21 00:48 Temperature Pulse Rate 82 77 73 Respiratory Rate 16 18 16 Blood Pressure 125/59 L 137/63 131/64 Pulse Oximetry 100 100 100 10/16/21 01:18 10/16/21 02:00 10/16/21 04:00 Temperature 35.9 C L 36.6 C Pulse Rate 105 H 63 87 Respiratory Rate 20 18 Blood Pressure 156/93 H 139/82 Pulse Oximetry 99 99 10/16/21 06:00 10/16/21 08:00 10/16/21 12:00 Temperature 36.5 C 36.4 C Pulse Rate 65 74 75 Respiratory Rate 22 H 22 H Blood Pressure 130/54 L 134/75 Pulse Oximetry 100 100
[2021-10-17] VITALS (12 sets, daily range): BP systolic 126; BP diastolic 73–76; PULSE 71–89; RESP 16–21; TEMP 35.9–36.7; O2SAT 96–100
[2021-10-17] MEDS: methylPREDNISolone SOD SUCC 125 MG VIAL 60 MG IV PUSH ×3 (05:17→22:24)
[2021-10-17] MEDS: ANASTROZOLE (*CHEMO) 1 MG TABLET PO (07:59)
[2021-10-17] MEDS: ACETAMINOPHEN 325 MG TABLET 650 MG PO (09:36)
--- NOTE | 2021-10-17 14:11 | PM.IMPN ---
Progress Note: A&P Assessment and Plan (1) Chest pain: Qualifiers: Chest pain type: unspecified Qualified Code(s): R07.9 - Chest pain, unspecified Code(s): R07.9 - Chest pain, unspecified Status: Acute Assessment and Plan: ct pe is negative ct shows- Dilated pulmonary arteries without filling defects. Moderate emphysema and hyperinflation. Postinfectious residua (2) COPD (chronic obstructive pulmonary disease): Qualifiers: COPD type: COPD with acute exacerbation Qualified Code(s): J44.1 - Chronic obstructive pulmonary disease with (acute) exacerbation Code(s): J44.9 - Chronic obstructive pulmonary disease, unspecified Status: Acute Assessment and Plan: solumedrol iv and breathing treatments (3) Chronic respiratory failure with hypoxia: Code(s): J96.11 - Chronic respiratory failure with hypoxia Status: Acute Assessment and Plan: Continue supplemental oxygen by nasal cannula on 4 liters presently (4) Nicotine dependence: Code(s): F17.200 - Nicotine dependence, unspecified, uncomplicated Status: Acute Assessment and Plan: pt adviced to quit smoking (5) Breast cancer: Code(s): C50.919 - Malignant neoplasm of unspecified site of unspecified female breast Status: Acute Assessment and Plan: Status post right breast mastectomy.on hormonal tablet Subjective Date/time seen: 10/17/21 14:11 Interval history: 61-year-old female with past medical history significant for COPD/emphysema, chronic hypoxic respiratory failure on supplemental oxygen at home, right breast cancer status post mastectomy, former tobacco user. Patient presents today for evaluation of chest pain which is retrosternal has been happening on and off for the last week or so mainly with exertion and worsening shortness of breath, patient has an intermittent cough at times brings up clear phlegm, denies any changes to a sputum quality, patient denies any fevers, rigors or chills, no nausea, no vomiting, no abdominal pain, no dizziness, no lightheadedness, no syncope or near syncope, no leg swelling, no calves pain. admitted for sob ongoing sob and wheeze today continue current care in hospital Review of Systems Review of Systems: All systems reviewed & are unremarkable except as noted in HPI and below Exam Const: General: ill appearing chronically Nutritional Appearance: average body habitus Orientation/consciousness: patient oriented x3 Resp: Effort & Inspection: normal respiratory effort and able to speak in complete sentences Auscultation: clear to auscultation bilaterally, no crackles, no rales, no rhonchi, no wheezes and diminished lung sounds Cardio: Jugular venous distension: no JVD Rate: regular rate Rhythm: regular rhythm Heart sounds: S1 normal heart sound present and S2 normal heart sound present Neuro: General: patient oriented x3 Objective Data Vital Signs Vital Signs: Vital Signs - 24 hr 10/16/21 16:00 10/16/21 16:44 10/16/21 16:49 Temperature 36.1 C L Pulse Rate 79 81 81 Respiratory Rate 20 18 18 Blood Pressure 137/74 Pulse Oximetry 98 98 10/16/21 16:53 10/16/21 18:00 10/16/21 19:30 Temperature Pulse Rate 79 83 Respiratory Rate 18 Blood Pressure Pulse Oximetry 96 10/16/21 22:00 10/16/21 23:55 10/17/21 00:05 Temperature 36.8 C Pulse Rate 85 81 80 Respiratory Rate 18 20 20 Blood Pressure 144/75 H Pulse Oximetry 97 10/17/21 08:00 10/17/21 09:15 10/17/21 09:17 Temperature Pulse Rate 89 Respiratory Rate 20 Blood Pressure Pulse Oximetry 96 99 10/17/21 09:24 Temperature Pulse Rate 88 Respiratory Rate 20 Blood Pressure Pulse Oximetry Intake/Output Intake/Output: Intake & Output 10/14/21 10/15/21 10/16/21 10/17/21 23:59 23:59 23:59 23:59 Intake Total 1660 700 Output Total 350 Balance 1310 700 Meds/Results Medications: Acti
[2021-10-17] MEDS: ACETAMINOPHEN ELIXIR 325 MG/10.15 ML UDC 650 MG PO (19:37)
[2021-10-18] VITALS (14 sets, daily range): BP systolic 133–148; BP diastolic 64–77; PULSE 72–115; RESP 18–22; TEMP 35.7–36.8; O2SAT 87–100
[2021-10-18] MEDS: methylPREDNISolone SOD SUCC 125 MG VIAL 60 MG IV PUSH ×3 (05:34→21:38)
[2021-10-18] MEDS: ANASTROZOLE (*CHEMO) 1 MG TABLET PO (08:58)
[2021-10-18] MEDS: ACETAMINOPHEN ELIXIR 325 MG/10.15 ML UDC 650 MG PO (10:53)
--- NOTE | 2021-10-18 11:14 | PM.IMPN ---
Progress Note: A&P Assessment and Plan (1) COPD (chronic obstructive pulmonary disease): Qualifiers: COPD type: COPD with acute exacerbation Qualified Code(s): J44.1 - Chronic obstructive pulmonary disease with (acute) exacerbation Code(s): J44.9 - Chronic obstructive pulmonary disease, unspecified Status: Acute Assessment and Plan: It does appear that this episode of chest pain is consistent with a COPD exacerbation, and patient herself endorses this is how she feels during a typical COPD exacerbation. Patient is being treated with solumedrol iv 60 mg q.8 hours and breathing treatments. - IV Solu-Medrol today, and transition to p.o. prednisone tomorrow. - She uses Trelegy Ellipta inhaler at home along with ipratropium albuterol inhaler, which we have continued here. - continue albuterol p.r.n. for shortness of breath (2) Chest pain: Qualifiers: Chest pain type: unspecified Qualified Code(s): R07.9 - Chest pain, unspecified Code(s): R07.9 - Chest pain, unspecified Status: Acute Assessment and Plan: CTA chest showed dilated pulmonary arteries without filling defects (no evidence of pulmonary embolism), moderate emphysema, hyperinflation, and postinfectious residual. Patient bNP mildly elevated at 153, troponin on 10/15 was less than 0.012. At this point, this does not appear to be an ACS picture. Her chest pain is more likely associated with her COPD exacerbation. -Will recheck CBC, CMP, she had a mildly elevated white count on admission, and we want to be sure to rule out infectious etiology. (3) Chronic respiratory failure with hypoxia: Code(s): J96.11 - Chronic respiratory failure with hypoxia Status: Acute Assessment and Plan: Continue supplemental oxygen by nasal cannula on 4 liters presently. - Home O2 eval today. (4) Nicotine dependence: Code(s): F17.200 - Nicotine dependence, unspecified, uncomplicated Status: Acute Assessment and Plan: She is a current smoker. Will discuss smoking cessation upon discharge. (5) Breast cancer: Code(s): C50.919 - Malignant neoplasm of unspecified site of unspecified female breast Status: Acute Assessment and Plan: Status post right breast mastectomy. On anastrozole. (6) DVT prophylaxis: Code(s): Z29.9 - Encounter for prophylactic measures, unspecified Status: Acute Assessment and Plan: SCDs Subjective Date/time seen: 10/18/21 11:14 61-year-old female with history of COPD on 4 L O2 at home, history of DVT, nicotine dependence, and breast cancer status post right breast mastectomy, who presented to this hospital for chest pain, and suspected COPD exacerbation. She denies any chest pain, shortness a breath at rest, swelling in her extremities, dizziness, syncope. She states she is feeling better each day. She endorses shortness of breath with exertion, and is apprehensive about going home too early during her exacerbation,since she lives alone and her ambulatory oxygen requirements have increased in the recent past. She states she needs to use 6-8 L of oxygen to walk around her home. She seems to understand when she is having a COPD flare, and typically goes to her PCM to have these, however, this time she delayed for too long and got too sick to wait for an appointment at her PCM. Review of Systems Review of Systems: All systems reviewed & are unremarkable except as noted in HPI and below Exam Narrative: GENERAL APPEARANCE: Alert and oriented x 3, in no apparent distress. HEENT: PERRL, EOMI. Sclerae anicteric. Moist mucous membranes. NECK: Supple. No JVD or obvious carotid bruits. RESPIRATORY: Respirations are nonlabored. Mild inspiratory wheezing bilaterally, breath sounds are equal and clear bilaterally. No Rhonchi, or rales. CARDIOVASCULAR: Regular rate and rhythm with normal S1-S2. No murmurs, ga
[2021-10-19] VITALS (10 sets, daily range): BP systolic 130–147; BP diastolic 72–83; PULSE 60–70; RESP 18–22; TEMP 35.7–36.5; O2SAT 98–100
[2021-10-19 05:53] LABS: Basophils Percent Auto 0.1 % (0.2-1.2); Hemoglobin 11.5 g/dL (12.0-15.0); Immature Granulocyte Absolute 0.22 K/mm3 (0.00-0.031); Immature Granulocyte Percent A 1.4 % (0-0.5); Lymphocytes Absolute Auto 0.65 K/mm3 (0.9-3.2); Lymphocytes Percent Auto 4.3 % (18.3-44.2); Mean Corpuscular HGB Conc 31.1 g/dl (32-36); Mean Corpuscular Hemoglobin 30.5 pg (26-34); Mean Corpuscular Volume 98.1 fl (80-100); Mean Platelet Volume 10.2 fl (7.4-10.4); Monocytes Absolute Auto 0.6 K/mm3 (0.1-0.6); Monocytes Percent Auto 3.9 % (2.6-8.5); Neutrophils Absolute Auto 13.8 K/mm3 (1.3-6.7); Neutrophils Percent Auto 90.3 % (45.5-73.1); Platelet Count Result 289 k/mm3 (150-375); Red Blood Count 3.77 M/mm3 (4.2-5.4); Red Cell Distribution Width 13.6 % (11.5-14.5); White Blood Count 15.3 K/mm3 (4.5-10.0)
[2021-10-19 06:03] LABS: Alanine Aminotransferase 95 U/L (4-35); Alkaline Phosphatase 78 U/L (38-126); Anion Gap 5 mmol/L (8-16); Aspartate Amino Transferase 55 U/L (14-36); Bilirubin,Total < 0.1 mg/dL (0.2-1.3); Blood Urea Nitrogen 18 mg/dL (7-17); Carbon Dioxide 35 mmol/L (22-30); Chloride 96 mmol/L (98-107); Estimated CRCL calculation 100 ml/min; Estimated Glomerular Filt Rate > 60; Glucose 171 mg/dL (65-110); Potassium 4.4 mmol/L (3.4-5.0); Sodium 136 mmol/L (137-145)
[2021-10-19] MEDS: ANASTROZOLE (*CHEMO) 1 MG TABLET PO (08:19)
[2021-10-19] MEDS: predniSONE 20 MG TABLET 40 MG PO (08:19)
[2021-10-19] MEDS: ACETAMINOPHEN ELIXIR 325 MG/10.15 ML UDC 650 MG PO ×2 (08:21→22:33)
--- NOTE | 2021-10-19 08:53 | PM.IMPN ---
Progress Note: A&P Assessment and Plan (1) COPD (chronic obstructive pulmonary disease): Qualifiers: COPD type: COPD with acute exacerbation Qualified Code(s): J44.1 - Chronic obstructive pulmonary disease with (acute) exacerbation Code(s): J44.9 - Chronic obstructive pulmonary disease, unspecified Status: Acute Assessment and Plan: WBC 15.3 today. We will investigate infectious etiology, but also consider steroids as cause. She denied increase or change in sputum production, fevers, or chills. She remains afebrile. Discussed this approach with the patient, who agrees with the plan. - CXR ordered. - Sputum culture, legionella, pneumococcal, influenza, and covid testing ordered. - Transitioned to PO Prednisone today. - She uses Trelegy Ellipta inhaler at home along with ipratropium albuterol inhaler, which we have continued here. - continue albuterol p.r.n. for shortness of breath (2) Chest pain: Qualifiers: Chest pain type: unspecified Qualified Code(s): R07.9 - Chest pain, unspecified Code(s): R07.9 - Chest pain, unspecified Status: Acute Assessment and Plan: CTA chest showed dilated pulmonary arteries without filling defects (no evidence of pulmonary embolism), moderate emphysema, hyperinflation, and postinfectious residual. Patient bNP mildly elevated at 153, troponin on 10/15 was less than 0.012. At this point, this does not appear to be an ACS picture. Her chest pain is more likely associated with her COPD exacerbation. CBC showed elevated white count today. (3) Chronic respiratory failure with hypoxia: Code(s): J96.11 - Chronic respiratory failure with hypoxia Status: Acute Assessment and Plan: Continue supplemental oxygen by nasal cannula on 4 liters presently. - Home O2 eval showed 4 L oxygen requirement at rest and with activity. Discussed this with the patient. (4) Breast cancer: Code(s): C50.919 - Malignant neoplasm of unspecified site of unspecified female breast Status: Acute Assessment and Plan: Status post right breast mastectomy. On anastrozole. (5) DVT prophylaxis: Code(s): Z29.9 - Encounter for prophylactic measures, unspecified Status: Acute Assessment and Plan: SCDs. Subjective Date/time seen: 10/19/21 08:53 Mr. Farnsworth is a 61-year-old female with past history of breast cancer and COPD who is currently admitted to our care for an acute COPD exacerbation. She continues to endorse shortness of breath with activity, and cough, which is normal for her. She denies excessive sputum production or a deviation from normal for her. She denies fevers, chills, nausea, abdominal pain, lower extremity swelling, chest pain, or shortness a breath at rest. We discussed plan to assess her elevated white blood cell count today, with likely discharge tomorrow, pending workup. Review of Systems Review of Systems: All systems reviewed & are unremarkable except as noted in HPI and below Exam Narrative: GENERAL APPEARANCE: Alert and oriented x 3, in no apparent distress. HEENT: PERRL, EOMI. Sclerae anicteric. Moist mucous membranes. NECK: Supple. No JVD or obvious carotid bruits. RESPIRATORY: Respirations are nonlabored. Breath sounds are equal bilaterally. Mild scattered rales Bilaterally. CARDIOVASCULAR: Regular rate and rhythm with normal S1-S2. No murmurs, gallops, or rubs. GASTROINTESTINAL: Soft, flat, and benign. No mass, tenderness, guarding, or rebound. No organomegaly or hernia. Bowel sounds are present. SKIN: Warm, dry, well perfused. Good turgor. No lesions, nodules, or rashes noted. Warm and dry. No rash or lesions on limited exam. EXTREMITIES: No cyanosis, clubbing, or edema. Radial and pedal pulses intact. NEUROLOGICAL: Alert. Cranial nerves 2-12 are grossly intact. No gross focal deficits to casual conversation. PSYCHIATRIC: Pleasa
[2021-10-19 10:09] LABS: Influenza A QL RT-PCR Negative (Negative); Influenza B QL RT-PCR Negative (Negative); SARS-CoV-2 RNA PCR Negative
[2021-10-20] VITALS (9 sets, daily range): BP systolic 125–133; BP diastolic 65–73; PULSE 60–79; RESP 16–18; TEMP 36–36.1; O2SAT 95–100
[2021-10-20 05:58] LABS: Alanine Aminotransferase 99 U/L (4-35); Albumin Level 3.9 g/dL (3.5-5.1); Alkaline Phosphatase 73 U/L (38-126); Anion Gap 3 mmol/L (8-16); Aspartate Amino Transferase 36 U/L (14-36); Bilirubin,Total 0.1 mg/dL (0.2-1.3); Blood Urea Nitrogen 21 mg/dL (7-17); Calcium 8.8 mg/dL (8.4-10.2); Carbon Dioxide 35 mmol/L (22-30); Chloride 98 mmol/L (98-107); Estimated CRCL calculation 100 ml/min; Estimated Glomerular Filt Rate > 60; Glucose 114 mg/dL (65-110); Potassium 3.8 mmol/L (3.4-5.0); Sodium 136 mmol/L (137-145)
[2021-10-20 06:02] LABS: Basophils Percent Auto 0.2 % (0.2-1.2); Eosinophils Percent Auto 0.3 % (0-4.4); Hemoglobin 11.9 g/dL (12.0-15.0); Immature Granulocyte Absolute 0.16 K/mm3 (0.00-0.031); Immature Granulocyte Percent A 1.5 % (0-0.5); Lymphocytes Percent Auto 12.7 % (18.3-44.2); Mean Corpuscular HGB Conc 31.3 g/dl (32-36); Mean Corpuscular Volume 95.7 fl (80-100); Mean Platelet Volume 10.1 fl (7.4-10.4); Monocytes Absolute Auto 1.3 K/mm3 (0.1-0.6); Monocytes Percent Auto 11.8 % (2.6-8.5); Neutrophils Absolute Auto 8.1 K/mm3 (1.3-6.7); Neutrophils Percent Auto 73.5 % (45.5-73.1); Platelet Count Result 280 k/mm3 (150-375); Red Blood Count 3.97 M/mm3 (4.2-5.4); Red Cell Distribution Width 13.7 % (11.5-14.5)
[2021-10-20] MEDS: ACETAMINOPHEN ELIXIR 325 MG/10.15 ML UDC 650 MG PO (09:40)
[2021-10-20] MEDS: ANASTROZOLE (*CHEMO) 1 MG TABLET PO (09:41)
[2021-10-20] MEDS: predniSONE 20 MG TABLET 40 MG PO (09:41)
--- NOTE | 2021-10-20 10:38 | PM.DS ---
DS: Admitting Diagnosis Discharge Date 10/20/21 1300 Admitting Diagnosis COPD exacerbation. DS: Discharge Diagnosis Discharge Diagnosis (1) COPD (chronic obstructive pulmonary disease): Qualifiers: COPD type: COPD with acute exacerbation Qualified Code(s): J44.1 - Chronic obstructive pulmonary disease with (acute) exacerbation Code(s): J44.9 - Chronic obstructive pulmonary disease, unspecified Status: Acute Assessment and Plan: 61-year-old female with history significant for COPD/emphysema, chronic hypoxic respiratory failure on 4 L supplemental home oxygen, right breast cancer status post mastectomy, former tobacco user who presented to our care for evaluation of chest pain x1 week shortness of breath, occasional chills, and intermittent cough. CT angio of the chest showed no acute pulmonary embolism, chest x-ray was clear. On care she was treated with IV Solu-Medrol 60 mg q.8 hours and her regular home breathing treatments.She denied increase or change in sputum production, fevers, or chills and remained afebrile. On 10/19 WBC 15.3 was noted, infectious etiology was investigated, but found to more likely be due to steroids. Negative influenza a/B, COVID, pneumococcal and Legionella pending. Repeat chest x-ray showed no pleural effusion or pneumothorax, normal heart size, and severe emphysema. On 10/20 WBC 11, and patient denied any complaints worsening shortness breath, fevers, chills, urinary or bowel changes, chest pain, palpitations, or additional concerns at this time. We discussed plans for discharge including completing her course of steroids after discharge to continue home use of oxygen at 4 L at rest and with activity as assessed by home O2 test here. Return precautions were also discussed. patient acknowledged understanding. - Transitioned to PO Prednisone on 10/19 and she will receive an additional dose today. - Continue outpatient prednisone treatment for 3 additional days for a total of 5 days for the COPD exacerbation. - She uses Trelegy Ellipta inhaler at home along with ipratropium albuterol inhaler, which we will continue upon discharge. - Continue 4 L home O2 use at rest and with activity - Follow-up with primary care provider (2) Chest pain: Qualifiers: Chest pain type: unspecified Qualified Code(s): R07.9 - Chest pain, unspecified Code(s): R07.9 - Chest pain, unspecified Status: Acute Assessment and Plan: Her chest pain, which she describes more as pressure, has resolved completely. CTA chest showed dilated pulmonary arteries without filling defects (no evidence of pulmonary embolism), moderate emphysema, hyperinflation, and postinfectious residual. Patient bNP mildly elevated at 153, troponin on 10/15 was less than 0.012. At this point, this does not appear to be an ACS picture. Her chest pain was more likely associated with her COPD exacerbation. Return precautions discussed. (3) Chronic respiratory failure with hypoxia: Code(s): J96.11 - Chronic respiratory failure with hypoxia Status: Acute Assessment and Plan: Continue supplemental oxygen by nasal cannula on 4 liters presently, this a.m. with 100% SpO2 saturation. - Home O2 eval showed 4 L oxygen requirement at rest and with activity. Discussed this with the patient who acknowledged understanding. (4) Breast cancer: Code(s): C50.919 - Malignant neoplasm of unspecified site of unspecified female breast Status: Acute Assessment and Plan: Status post right breast mastectomy. On anastrozole. We will continue upon discharge. (5) DVT prophylaxis: Code(s): Z29.9 - Encounter for prophylactic measures, unspecified Status: Acute Assessment and Plan: SCDs during stay. (6) Transaminitis: Code(s): R74.01 - Elevation of levels of liver transaminase levels Status: Acute Assessment an
[2021-10-23 06:56] LABS: Legionella pneumophila Ag Ur Not Detected (Not Detected); Pneumococcal Antigen Urine Not Detected (Not Detected)
--- NOTE | 2021-10-25 08:13 | PC.NURSE ---
Urine legionella and pneumococcal are both negative.
== END 2021-10-20 15:55 | disposition home or self-care (01) | DRG 191 ==
LOC: ANHED 10-16 00:06 → ANHIMU 10-16 00:33 → ANH3MEDSUR 10-16 18:43
PROVIDERS: Emergency Medicine; Student in an Organized Health Care Education/Training Program; Admitting Provider Internal Medicine; Emergency Provider Emergency Medicine; PCP Family Medicine; Visit Provider Internal Medicine
DX: J43.9 Emphysema, unspecified (principal); J96.11 Chronic respiratory failure with hypoxia; Z20.822 Contact with and (suspected) exposure to COVID-19; F32.A Depression, unspecified; Z99.81 Dependence on supplemental oxygen; Z85.3 Personal history of malignant neoplasm of breast; Z87.891 Personal history of nicotine dependence; Z86.718 Personal history of other venous thrombosis and embolism; Z90.49 Acquired absence of other specified parts of digestive tract; Z90.710 Acquired absence of both cervix and uterus
CPT/HCPCS: 36415; 71045; 71046; 71275; 80053; 83880; 84484; 85025; 85380; 85610; 85730; 87449; 87502; 87899; 93005; 94618; 94640; 96374; 96376; 99285; A9270; C9803; G0378; J2930; J7512; Q9967; U0003; U0005

== ENCOUNTER 2022-02-10 09:50 | Outpatient (CLI) | payer MEDICARE, MEDICAID, SELFPAY ==
--- NOTE | ~2022-02-10 | MR_ITS ---
EXAMINATION: MR brain/brain stem wo con DATE: 02/10/2022 12:45 INDICATION: Severe headache. TECHNIQUE: Magnetic resonance imaging (MRI) of the brain and brainstem was performed without intraven ous contrast. COMPARISON: None. FINDINGS: There are scattered areas of low attenuation in the cerebral white matter and tammy, which i s within normal limits for the patient's age. There is no intracranial hemorrhage, acute infarction, or abnormal intracranial mass lesion. The ventricles are normal in size. There is mild mucosal thicke scarlett in the ethmoid sinuses. The orbits are normal. The mastoid air cells are normal. IMPRESSION: 1. Normal aging brain. Reviewed, dictated and finalized at location A. IMPRESSION: 1. Normal aging brain.
== END 2022-02-10 09:51 | disposition home or self-care (01) ==
LOC: CHSIMG 09:50
PROVIDERS: PCP Family Medicine; Visit Provider Family Medicine
DX: R51.9 Headache, unspecified (principal)
CPT/HCPCS: 70551

== ENCOUNTER 2022-09-28 12:51 | Outpatient (CLI) | payer MEDICARE, MEDICAID, SELFPAY ==
--- NOTE | ~2022-09-28 | MM_ITS ---
EXAMINATION: MM screening gloria LT w grupo HISTORY: Screening TECHNIQUE: Craniocaudal and mediolateral oblique 3-D tomosynthesis images were obtained and synthetic 2-D images were generated. CAD analysis was submitted and interpreted. COMPARISON: Comparison to multiple prior studies sequentially, with oldest reviewed study dated 03/29. BREAST PARENCHYMAL COMPOSITION: There are scattered areas of fibroglandular density. FINDINGS: There is no evidence of suspicious mass, calcification, or architectural distortion to sugg est malignancy in the left breast. There has been no suspicious interval change. IMPRESSION: 1. No mammographic evidence of malignancy. 2. Recommend routine screening mammography in one year. BI-RADS Category 1: Negative Reviewed, dictated and finalized at location A.
== END 2022-09-28 12:52 | disposition home or self-care (01) ==
PROVIDERS: PCP Family Medicine
DX: Z12.31 Encounter for screening mammogram for malignant neoplasm of breast (principal)
CPT/HCPCS: 77063; 77067

== ENCOUNTER 2022-10-19 12:08 | Outpatient (CLI) | payer MEDICARE, MEDICAID, SELFPAY ==
--- NOTE | ~2022-10-19 | XR_ITS ---
XR abdomen/kub 1V 10/19/2022 12:27 INDICATION: Abdominal distention and upper abdominal pain TECHNIQUE: KUB COMPARISON: 04/25/2009 FINDINGS: Mildly dilated small bowel right mid abdomen measuring up to 3.6 cm. There is gas and fecal material throughout the colon. Calcifications in the pelvis are believed to be phleboliths. Lung bas es unremarkable. No evidence for renal stones. No acute osseous abnormality. IMPRESSION: 1: Mildly dilated small bowel right mid abdomen which may reflect ileus or less likely partial obstru ction.. Reviewed, dictated and finalized at location B. IMPRESSION: 1: Mildly dilated small bowel right mid abdomen which may reflect ileus or less likely partial obstruction..
== END 2022-10-19 12:09 | disposition home or self-care (01) ==
LOC: ANHIMG 12:14
PROVIDERS: PCP Family Medicine; Visit Provider Nurse Practitioner
DX: R14.0 Abdominal distension (gaseous) (principal); R10.10 Upper abdominal pain, unspecified; K21.9 Gastro-esophageal reflux disease without esophagitis; R14.2 Eructation; R19.7 Diarrhea, unspecified
CPT/HCPCS: 74018

== ENCOUNTER 2022-10-20 08:10 | Outpatient (CLI) | payer MEDICARE, MEDICAID, SELFPAY ==
--- NOTE | ~2022-10-20 | CT_ITS ---
CT of the Abdomen and Pelvis: Indication: Abdominal distention, abdominal pain Technique: 2.5 mm axial scans were obtained through the abdomen and pelvis following intravenous adm inistration of 100 cc of Omnipaque 350. Dose reduction technique was used on this scan by utilizing a utomated exposure control and iterative reconstruction technique. The dose-length product (DLP) was 7 75.51 mGy-cm. COMPARISON: 08/24/2021 Findings: Scans through the lung bases are unremarkable, aside from calcified left basilar granuloma . The liver, spleen, pancreas, adrenals and kidneys are within normal limits. Cholecystectomy clips are present. There are atherosclerotic calcifications of the aorta. No lymphadenopathy. No bowel obstruction or bowel wall thickening. There is no evidence to suggest acute appendicitis. Du odenal diverticulum noted. Images through the pelvis were performed. Urinary bladder unremarkable. Patient is post hysterectomy. No pelvic mass seen. No ascites. Impression: No acute abnormality or abnormal mass lesion. Duodenal diverticulum, unchanged. Reviewed, dictated and finalized at location . Impression: No acute abnormality or abnormal mass lesion. Duodenal diverticulum, unchanged.
[2022-10-20 09:41] LABS: Estimated Glomerular Filt Rate > 60
== END 2022-10-20 08:11 | disposition home or self-care (01) ==
PROVIDERS: PCP Family Medicine; Visit Provider Nurse Practitioner
DX: K57.10 Diverticulosis of small intestine without perforation or abscess without bleeding (principal); R14.0 Abdominal distension (gaseous)
CPT/HCPCS: 74177; Q9967

== ENCOUNTER 2022-12-24 08:24 | Outpatient (CLI) | payer MEDICARE, MEDICAID, SELFPAY ==
--- NOTE | ~2022-12-24 | XR_ITS ---
EXAMINATION: XR UGIAC w small bowel DATE: 12/24/2022 11:32 INDICATION: Belching and gastroesophageal reflux disease TECHNIQUE: The patient drank thick barium, gas-producing crystals, and thin barium. Conventional supi ne abdomen radiographs and fluoroscopic spot radiographs of the esophagus, stomach, and proximal smal l bowel were obtained. Additional overhead radiographs were obtained during the transit through the s mall bowel. Spot fluoroscopic images of the small bowel were obtained upon contrast reaching the cec um. A total of 668 fluoroscopic images and 6 overhead radiographs were obtained. Fluoroscopy exposure time was 2.0 minutes. Total DAP was 116.927 Gycm^2 COMPARISON: None. FINDINGS: The esophagus is normal without mass or stricture. Esophageal motility is normal. Small sliding-type hiatal hernia with gastroesophageal junction approximately 3. Centimeter above level of the diaphragm There was no gastroesophageal reflux with provocative maneuvers. There is a 4 cm diameter diverticul um arising from the junction of the third and fourth portions of the duodenum. The stomach and proxim al small bowel are otherwise normal. Transit time from the stomach to proximal colon was approximately 1.5 hours. There is normal caliber and mucosal fold pattern throughout the small bowel. Terminal ileum is normal. No tethering or abno rmal mass effect observed upon the small bowel with real-time fluoroscopy. IMPRESSION: 1. Small sliding-type hiatal hernia without observed gastroesophageal reflux with provocative maneuve rs. 2. 4 cm duodenal diverticulum arising from the junction of the third and fourth portion of the duoden um. Otherwise normal small bowel follow-through. Reviewed, dictated and finalized at location A. IMPRESSION: 1. Small sliding-type hiatal hernia without observed gastroesophageal reflux wi th provocative maneuvers. 2. 4 cm duodenal diverticulum arising from the junction of the third and fourth portion of the duodenum. Otherwise normal small bowel follow-through.
== END 2022-12-24 08:25 | disposition home or self-care (01) ==
PROVIDERS: PCP Family Medicine; Visit Provider Nurse Practitioner
DX: R14.2 Eructation (principal); R10.10 Upper abdominal pain, unspecified; K21.9 Gastro-esophageal reflux disease without esophagitis; R14.0 Abdominal distension (gaseous); K44.9 Diaphragmatic hernia without obstruction or gangrene; K57.10 Diverticulosis of small intestine without perforation or abscess without bleeding
CPT/HCPCS: 74246; 74248

== ENCOUNTER 2023-05-08 11:52 | Outpatient (CLI) | payer MEDICARE, MEDICAID, SELFPAY ==
--- NOTE | ~2023-05-08 | CT_ITS ---
EXAMINATION: CTA chest PE protocol DATE: 05/08/2023 12:59 CDT INDICATION: Dyspnea. Worsening shortness of breath. TECHNIQUE: Computed tomographic angiography (CTA) of the chest was performed with 100 mL Omnipaque-35 0 intravenous contrast. The dose-length product was 406.35 mGy-cm. Maximum intensity projection 3D-re constructions of the aorta and other arteries were constructed by the technologist on a separate work station. Automated exposure control and iterative reconstruction technique were employed. COMPARISON: CT dated 10/15/2021. FINDINGS: The there is a right lateral breast mass extending to the pectoralis muscle to the skin karlo face measuring 2 x 1.6 cm. There is dimpling of the skin. Findings suspicious for malignancy. Recomme nd correlation with mammography and right breast ultrasound. Heart size normal. No significant pleura l or pericardial effusion. Study is technically adequate without evidence for pulmonary embolism. Heart size normal. No signific ant pleural or pericardial effusion. No thoracic lymphadenopathy. There is mild atherosclerosis. Dens jacque calcified granuloma left lower lobe. Upper abdomen is unremarkable. There is severe emphysema. Th ere is a 9 mm right upper lobe nodule. No pneumothorax or endobronchial lesions. Mild thoracic spondy losis. IMPRESSION: 1. Irregular shaped right lateral breast mass extending to the pectoralis muscle from the skin surfac e measuring up to 2 cm, suspicious for breast carcinoma. This mass was not identified on prior CT barney ed 10/15/2021. There is a history of right breast cancer status post mastectomy. Recommend correlation with ultrasound. 2: Irregular shaped 9 mm right upper lobe nodule. Primary bronchogenic carcinoma or metastatic diseas e are not excluded. Consider follow-up examination with pet/CT scan. Reviewed, dictated and finalized at location B. IMPRESSION: 1. Irregular shaped right lateral breast mass extending to the pectoralis muscl e from the skin surface measuring up to 2 cm, suspicious for breast carcinoma. This mass was not identified on prior CT dated 10/15/2021. There is a history of right breast cancer status post mastectomy. Recommend correlation with ultraso und. 2: Irregular shaped 9 mm right upper lobe nodule. Primary bronchogenic carcinom a or metastatic disease are not excluded. Consider follow-up examination with p et/CT scan.
[2023-05-08 12:07] LABS: Basophils Absolute Auto 0.06 K/mm3 (0.00-0.10); Basophils Percent Auto 0.7 % (0.0-1.0); Eosinophils Absolute Auto 0.04 K/mm3 (0.02-0.50); Eosinophils Percent Auto 0.5 % (1.0-6.0); Hematocrit 40.2 % (35.0-49.0); Immature Granulocyte Absolute 0.03 K/mm3 (0.00-0.00); Immature Granulocyte Percent A 0.4 % (0.0-0.0); Lymphocytes Absolute Auto 0.76 K/mm3 (1.10-4.50); Lymphocytes Percent Auto 9.4 % (18.0-42.0); Mean Corpuscular HGB Conc 29.9 g/dL (32.0-36.0); Mean Corpuscular Hemoglobin 29.7 pg (27.0-31.0); Mean Corpuscular Volume 99.5 fL (78.0-102.0); Mean Platelet Volume 10.6 fl (9.2-11.8); Monocytes Absolute Auto 0.57 K/mm3 (0.10-0.90); Neutrophils Absolute Auto 6.7 K/mm3 (1.7-7.2); Platelet Count Result 272 K/mm3 (150-420); Red Blood Count 4.04 M/mm3 (4.20-5.40); Red Cell Distribution Width 13.2 % (11.6-14.4); White Blood Count 8.1 K/mm3 (4.8-10.8)
[2023-05-08 12:34] LABS: Estimated Glomerular Filt Rate > 60
[2023-05-08 12:35] LABS: Alanine Aminotransferase 35 U/L (14-59); Albumin Level 3.4 g/dL (3.4-5.0); Alkaline Phosphatase 83 U/L (46-116); Anion Gap 4 mmol/L (8-16); Aspartate Amino Transferase < 10 U/L (15-37); Bilirubin,Total 0.2 mg/dL (0.00-1.00); Blood Urea Nitrogen 13 mg/dL (7-18); Calcium 9.5 mg/dL (8.5-10.1); Carbon Dioxide 38 mmol/L (21-32); Chloride 100 mmol/L (98-108); Glucose 132 mg/dL (70-99); Osmolality Calculated 296 mOsm/kg (285-295); Potassium 4.4 mmol/L (3.5-5.1); Sodium 142 mmol/L (136-145); Total Protein 7.7 g/dL (6.4-8.2)
== END 2023-05-08 11:53 | disposition home or self-care (01) ==
LOC: CHSLAB 11:54
PROVIDERS: PCP Family Medicine; Visit Provider Family Medicine
DX: R06.02 Shortness of breath (principal); R06.00 Dyspnea, unspecified; Z87.891 Personal history of nicotine dependence; N63.10 Unspecified lump in the right breast, unspecified quadrant; R91.1 Solitary pulmonary nodule
CPT/HCPCS: 36415; 71275; 80053; 85025; Q9967

== ENCOUNTER 2023-08-16 12:53 | Outpatient (CLI) | payer MEDICARE, MEDICAID, SELFPAY ==
--- NOTE | ~2023-08-16 | CT_ITS ---
EXAMINATION:CT diagnostic chest wo con DATE: 08/16/2023 13:35 INDICATION: Solitary pulmonary nodule. TECHNIQUE: Computed tomography (CT) of the chest was performed without intravenous contrast. Automate d exposure control and iterative reconstruction technique were employed. The dose-length product (DLP ) was 92.24 mGy-cm. COMPARISON: Chest CT 05/08/2023, 10/15/2021, 08/24/21 FINDINGS: There is severe emphysema. There is mild scarring at right lung apex. There is a 7 mm nodul e in right upper lobe, stable from 08/24/21. There is mild atelectasis bilaterally. Calcified bilatera l lung nodules and calcified hilar and mediastinal lymph nodes are consistent with old granulomatous disease. No pleural effusion. The central pulmonary arteries are enlarged, consistent with pulmonary arterial hypertension. The heart size is normal. There are coronary artery calcifications. No pericar dial effusion. There is a small sliding hiatal hernia. There are changes of cholecystectomy. There ar e surgical changes of right breast. There is mild thoracic spondylosis. IMPRESSION: 1. Chronic pulmonary nodule, consistent with granulomatous disease. 2. Severe emphysema. Reviewed, dictated and finalized at location E. [employer]
== END 2023-08-16 12:54 | disposition home or self-care (01) ==
LOC: CHSIMG 12:55
PROVIDERS: PCP Family Medicine; Visit Provider Internal Medicine Pulmonary Disease
DX: R91.1 Solitary pulmonary nodule (principal); J43.9 Emphysema, unspecified
CPT/HCPCS: 71250

== ENCOUNTER 2023-11-20 09:31 | Emergency (ER) | payer MEDICARE, SELFPAY ==
[2023-11-20] VITALS (21 sets, daily range): BP systolic 111–153; BP diastolic 48–90; PULSE 54–93; RESP 13–24; TEMP 37.1; O2SAT 57–100
--- NOTE | ~2023-11-20 | XR_ITS ---
Portable chest x-ray Comparison: 10/19/2021 Clinical History: Shortness of breath Findings: Stable calcified left lower lobe granuloma. Lungs are otherwise clear. Cardiomediastinal silhouette is stable. Bones and soft tissues are unremarkable. Impression: No acute abnormality. Reviewed, dictated and finalized at location . Impression: No acute abnormality.
--- NOTE | ~2023-11-20 | CT_ITS ---
Clinical Indication: Shortness of breath CT Scan of the Chest with Contrast: Technique: Contiguous sections were acquired throughout the chest after intravenous administration of 100 cc of Omnipaque 350. Dose reduction technique was used on this scan by utilizing automated expos ure control and iterative reconstruction technique. The dose-length product (DLP) was 422.39 mGy-cm. COMPARISON: 08/16/2023 Findings: There is no evidence of any significant mediastinal, hilar or axillary lymphadenopathy. There is no f illing defect in the pulmonary arterial tree to suggest pulmonary embolus. There is no evidence of ao rtic dissection or aneurysm. There is no evidence of pleural or pericardial effusion. Severe emphysema present. Stable nodule and scarring in the right upper lobe, with nodularity measuri ng 9 mm (axial image 47). Calcified left lower lobe granuloma is unchanged. Images through the upper abdomen reveal no abnormalities. Impression: No evidence of pulmonary embolus, aortic dissection, or aortic aneurysm. Advanced emphysema. Stable 9 mm right upper lobe pulmonary nodule, possibly nodular scarring. Reviewed, dictated and finalized at [facility]. Impression: No evidence of pulmonary embolus, aortic dissection, or aortic aneurysm. Advanced emphysema. Stable 9 mm right upper lobe pulmonary nodule, possibly nodular scarring.
--- NOTE | 2023-11-20 09:41 | ED.SOB ---
HPI - SOB/Dyspnea General Chief Complaint: Shortness of Breath/Dyspnea Stated Complaint: shortness of breath Source: patient Mode of arrival: wheelchair Limitations: no limitations History of Present Illness HPI Narrative: 63-year-old female, ex-smoker with a history of Migraine, breast cancer status post right mastectomy, COPD on home oxygen, DVT, hypertension presents to the ER with -- worsening shortness of breath for the past few days. She presented to the outpatient clinic for a routine checkup and was noted to be hypoxic with oxygen saturation of 78% following which she was brought to the ER. -- Cough with mucoid sputum. No recent increase in the amount of mucoid sputum. The patient denies any fever or chills. No upper respiratory tract symptoms. No chest pain. MD elicited complaint: shortness of breath and cough Pertinent past history: COPD Onset (ago): day(s) Context: occurred during exertion Timing: intermittent Severity: moderate Exacerbating factors: exertion Relieving factors: oxygen, rest and bronchodilators Known history of: COPD Associated symptoms: cough Treatment prior to arrival: none Related Data Home oxygen amount: other ( 5 liters/minute) Allergies Allergy/AdvReac Type Severity Reaction Status Date / Time No Known Allergies Allergy Unknown Verified 11/20/23 07:31 Review of Systems Review of Systems: All systems reviewed & are unremarkable except as noted in HPI and below Constitutional: Constitutional: Reports as per HPI and Reports no additional constitutional complaints Eyes: Eyes: Reports as per HPI and Reports no additional eye complaints ENT: Reports system reviewed and no additional complaints, except as documented and Reports as per HPI Cardiovascular: Cardiovascular: Reports as per HPI and Reports no additional cardiovascular complaints Respiratory: Respiratory: Reports cough and Reports dyspnea Gastrointestinal: Gastrointestinal: Reports as per HPI and Reports no additional gastrointestinal complaints Genitourinary: Genitourinary: Reports no additional female genitourinary complaints and Reports as per HPI Musculoskeletal: Musculoskeletal: Reports no additional musculoskeletal complaints and Reports as per HPI Integumentary/Breasts: Skin/Breast: Reports system reviewed and no additional complaints, except as docu and Reports as per HPI Neurologic: Reports system reviewed and no additional complaints, except as documented and Reports as per HPI Psychiatric: Psychiatric: Reports no additional psychiatric complaints and Reports as per HPI Endocrine: Endocrine: Reports no additional endocrine complaints and Reports as per HPI Hematologic/Lymphatic: Hematologic/Lymphatic: Reports no additional hematologic/lymphatic complaints and Reports as per HPI Allergic/Immunologic: Allergic/Immunologic: Reports no additional allergic/immunologic complaints and Reports as per HPI [facility] Past Medical History Medical History Abdominal distension Belching Breast cancer Right Breast Removed. SP Chemo. Completed Radiation 07-10-18. COPD (chronic obstructive pulmonary disease) Depression Duodenal diverticulum History of DVT (deep vein thrombosis) Ileus, unspecified Intermittent diarrhea Underweight Upper abdominal pain Surgical History Surgical History History of cholecystectomy History of hysterectomy History of repair of rotator cuff Right Shoulder Family History Family History Other Diabetes mellitus Social History Social History Smoking packs per day: 1 Smoking cigarettes per day: 20.0 Years smoked: 45 Smoking pack-years: 45.00 Smoking status: Former smoker Tobacco type: cigarettes Alcohol intake: never Substance use: never Substance use typ
--- NOTE | 2023-11-20 09:46 | ECG_ITS ---
SEE SCANNED COPY FOR CONFIRMED REPORT MTDD
[2023-11-20] MEDS: methylPREDNISolone SOD SUCC 125 MG VIAL IV PUSH (09:47)
[2023-11-20] MEDS: IPRATROPIUM 0.5 MG/ALBUTEROL SULFATE 2.5 MG AMPUL.NEB 3 ML INHALATION (09:51)
[2023-11-20 10:13] LABS: Basophils Absolute Auto 0.08 K/mm3 (0.00-0.10); Basophils Percent Auto 1.2 % (0.0-1.0); Eosinophils Absolute Auto 0.07 K/mm3 (0.02-0.50); Eosinophils Percent Auto 1.1 % (1.0-6.0); Hematocrit 34.9 % (35.0-42.0); Hemoglobin 10.5 g/dL (11.7-13.8); Immature Granulocyte Absolute 0.01 K/mm3 (0.00-0.00); Immature Granulocyte Percent A 0.2 % (0.0-0.0); Lymphocytes Absolute Auto 1.16 K/mm3 (1.10-4.50); Lymphocytes Percent Auto 17.5 % (18.0-42.0); Mean Corpuscular HGB Conc 30.1 g/dL (32-36); Mean Corpuscular Hemoglobin 28.8 pg (27.0-31.0); Mean Corpuscular Volume 95.9 fL (78.0-102.0); Mean Platelet Volume 10.3 fl (9.2-11.8); Monocytes Absolute Auto 0.51 K/mm3 (0.10-0.90); Monocytes Percent Auto 7.7 % (2.0-11.0); Neutrophils Absolute Auto 4.81 K/mm3 (1.70-7.20); Neutrophils Percent Auto 72.3 % (50.0-70.0); Platelet Count Result 253 K/mm3 (150-420); Red Blood Count 3.64 M/mm3 (4.20-5.40); Red Cell Distribution Width 12.7 % (11.6-14.4); White Blood Count 6.6 K/mm3 (4.8-10.8)
[2023-11-20 10:27] LABS: INR 0.9; Partial Thromboplastin Time 26.2 Sec (23.9-30.70); Prothrombin Time 10.3 Seconds (9.50-12.1)
[2023-11-20 10:31] LABS: D Dimer 1.15 mg/L (0.19-0.50)
[2023-11-20 10:35] LABS: Anion Gap 1 mmol/L (4-12); Blood Urea Nitrogen 18 mg/dL (7-18); Calcium 9.5 mg/dL (8.5-10.1); Carbon Dioxide 42 mmol/L (21-32); Chloride 98 mmol/L (98-108); Estimated CRCL calculation 67 ml/min; Estimated Glomerular Filt Rate > 60; Glucose 121 mg/dL (70-99); Osmolality Calculated 294 mOsm/kg (285-295); Sodium 141 mmol/L (136-145)
[2023-11-20 10:36] LABS: Alanine Aminotransferase 27 U/L (14-59); Albumin Level 3.4 g/dL (3.4-5.0); Alkaline Phosphatase 62 U/L (46-116); Aspartate Amino Transferase 17 U/L (15-37); Bilirubin,Total 0.2 mg/dL (0.00-1.00); NT Pro B Type Natriuretic Pept 108 pg/mL (0-125); Total Protein 7.4 g/dL (6.4-8.2)
[2023-11-20 10:44] LABS: Influenza A QL RT-PCR Negative (Negative); Influenza B QL RT-PCR Negative (Negative); RSV RNA, RT-PCR Negative (Negative); SARS-CoV-2 RNA PCR Negative (Negative)
[2023-11-20 10:50] LABS: Troponin I 5.1 ng/L (0.00-60.4)
[2023-11-20] MEDS: LACTATED RINGERS 500 ML 999 ML IV CONT (10:51)
[2023-11-20 11:36] LABS: Base Excess ABG 2.7 mmol/L (0-2); HCO3 ABG 30.3 mmol/L (23-29); Oxygen Content ABG 15.6 %vol (16.0-22.0); Oxygen Saturation ABG 91.6 % (95-97); Oxyhemoglobin 91.2 % (94-100); PCO2 ABG 61.4 mmHg (35-45); PO2 ABG 68.5 mmHg (80-90); Total Hemoglobin 12.1 g/dL (12.0-18.0); pH ABG 7.31 (7.35-7.45)
[2023-11-20 11:37] LABS: Device NASAL CANNULA; Modified Allen's Test Pass; Site Drawn LEFT RADIAL
== END 2023-11-20 12:24 | disposition home or self-care (01) ==
PROVIDERS: Emergency Provider Internal Medicine Critical Care Medicine; PCP Family Medicine
DX: J96.22 Acute and chronic respiratory failure with hypercapnia (principal); J44.1 Chronic obstructive pulmonary disease with (acute) exacerbation; R91.1 Solitary pulmonary nodule; I10 Essential (primary) hypertension; F32.A Depression, unspecified; Z99.81 Dependence on supplemental oxygen; Z85.3 Personal history of malignant neoplasm of breast; Z86.718 Personal history of other venous thrombosis and embolism; Z90.11 Acquired absence of right breast and nipple; Z92.21 Personal history of antineoplastic chemotherapy; Z92.3 Personal history of irradiation; Z87.891 Personal history of nicotine dependence; Z79.51 Long term (current) use of inhaled steroids; Z20.822 Contact with and (suspected) exposure to COVID-19
CPT/HCPCS: 36415; 36600; 71045; 71275; 80053; 82805; 83605; 83880; 84484; 85025; 85380; 85610; 85730; 87637; 93005; 94640; 96361; 96374; 99284; J2919; J7120; Q9967

== ENCOUNTER 2024-01-01 11:23 | Outpatient (CLI) | payer MEDICARE, SELFPAY ==
[2024-01-01 12:19] LABS: SARS-CoV-2 RNA PCR Negative (Negative)
[2024-01-01 12:21] LABS: Influenza A QL RT-PCR Negative (Negative); Influenza B QL RT-PCR Negative (Negative); RSV RNA, RT-PCR Negative (Negative)
== END 2024-01-01 11:24 | disposition home or self-care (01) ==
LOC: CHSLAB 11:25
PROVIDERS: PCP Family Medicine; Visit Provider Physician Assistant
DX: J44.1 Chronic obstructive pulmonary disease with (acute) exacerbation (principal); Z20.828 Contact with and (suspected) exposure to other viral communicable diseases
CPT/HCPCS: 87637

== ENCOUNTER 2024-04-02 11:32 | Outpatient (CLI) | payer MEDICARE, SELFPAY ==
--- NOTE | ~2024-04-02 | CT_ITS ---
EXAMINATION: CT abdomen pelvis w con DATE: 04/02/2024 12:44 INDICATION: Diarrhea. Mid abdominal pain. TECHNIQUE: Computed tomography (CT) of the abdomen and pelvis was performed with 100 mL Omnipaque-350 intravenous contrast. Automated exposure control and iterative reconstruction technique were employe d. The dose-length product was 510.00 mGy-cm. COMPARISON: 10/20/2022 FINDINGS: Emphysema. Calcified left lower lobe nodule consistent with old granulomatous disease. Heart size is normal. No pericardial or pleural effusion. Cholecystectomy clips at the gallbladder fossa. Liver, sp humza, pancreas and bilateral adrenal glands are normal. There are bilateral renal cysts measuring up to 12 mm at the upper pole of the right kidney. Decompressed bladder is unremarkable. The uterus is n ot identified and has likely been surgically resected. 5 cm duodenal diverticulum. Small bowel is oth erwise unremarkable with no obstruction. Mild diffuse scattered diverticulosis throughout the colon w ithout adjacent comparison to suggest diverticular disease. Normal appendix. Mild thoracic and lumbar spondylosis with moderate to severe lower lumbar facet osteoarthritis. IMPRESSION: 1. No acute intra-abdominal/pelvic process. Reviewed, dictated and finalized at location A.
[2024-04-02 12:03] LABS: Add Urine Microscopic? NO; Appearance Urine Clear (Clear); Bilirubin Urine Negative (Negative); Blood Urine Negative (Negative); Color Urine Light Yellow (Yellow); Glucose Urine UA Negative (Negative); Ketones Urine Negative (Negative); Leukocyte Esterase Ur Negative (Negative); Nitrate Urine Negative (Negative); Protein Urine Negative (Negative); Urobilinogen Urine 0.2 mg/dL (0.2-1.0)
[2024-04-02 12:16] LABS: Estimated Glomerular Filt Rate > 60
[2024-04-02 12:22] LABS: Basophils Absolute Auto 0.06 K/mm3 (0.00-0.10); Basophils Percent Auto 0.6 % (0.0-1.0); Eosinophils Absolute Auto 0.06 K/mm3 (0.02-0.50); Eosinophils Percent Auto 0.6 % (1.0-6.0); Hemoglobin 12.3 g/dL (11.7-13.8); Immature Granulocyte Absolute 0.03 K/mm3 (0.00-0.00); Immature Granulocyte Percent A 0.3 % (0.0-0.0); Lymphocytes Absolute Auto 1.07 K/mm3 (1.10-4.50); Lymphocytes Percent Auto 11.5 % (18.0-42.0); Mean Corpuscular HGB Conc 30.8 g/dL (32-36); Mean Corpuscular Volume 94.3 fL (78.0-102.0); Mean Platelet Volume 10.2 fl (9.2-11.8); Monocytes Absolute Auto 0.79 K/mm3 (0.10-0.90); Monocytes Percent Auto 8.5 % (2.0-11.0); Neutrophils Absolute Auto 7.28 K/mm3 (1.70-7.20); Neutrophils Percent Auto 78.5 % (50.0-70.0); Platelet Count Result 276 K/mm3 (150-420); Red Blood Count 4.24 M/mm3 (4.20-5.40); Red Cell Distribution Width 13.8 % (11.6-14.4); White Blood Count 9.3 K/mm3 (4.8-10.8)
[2024-04-02 12:23] LABS: Alanine Aminotransferase 36 U/L (14-59); Albumin Level 3.4 g/dL (3.4-5.0); Alkaline Phosphatase 84 U/L (46-116); Anion Gap 4 mmol/L (4-12); Aspartate Amino Transferase 14 U/L (15-37); Bilirubin,Total 0.3 mg/dL (0.00-1.00); Blood Urea Nitrogen 9 mg/dL (7-18); CRP 4.2 mg/dL (0.0-0.9); Carbon Dioxide 38 mmol/L (21-32); Chloride 97 mmol/L (98-108); Glucose 119 mg/dL (70-99); Osmolality Calculated 287 mOsm/kg (285-295); Potassium 4.5 mmol/L (3.5-5.1); Sodium 139 mmol/L (136-145); Total Protein 7.9 g/dL (6.4-8.2)
[2024-04-02] MEDS: SODIUM CHLORIDE 0.9% IV 1,000 ML 999 ML (12:45)
[2024-04-02 12:54] VITALS: BP 101/58; PULSE 92; RESP 16; TEMP 36.7; O2SAT 100
[2024-04-02 13:09] LABS: Thyroid Stimulating Hormone Reflex 0.85 u/IU/mL (0.36-3.74)
--- NOTE | 2024-04-02 13:47 | PC.NURSE ---
Patient here from Dr. Borden's office for 1 Liter of NS infusion. Education given. Infusion administered see MAR/patient care notes. Tolerated well.
[2024-04-02 14:03] VITALS: BP 130/70; PULSE 88; RESP 14; O2SAT 100
[2024-04-02 16:44] LABS: Occult Blood Negative (Negative)
[2024-04-06 11:18] LABS: Lactoferrin, Stool COMMENT:
[2024-04-10 21:38] LABS: Pancreatic Elastase, Stool >500 mcg/g
== END 2024-04-02 11:33 | disposition home or self-care (01) ==
LOC: CHSLAB 11:35 → CHSTREATRM 12:35
PROVIDERS: PCP Family Medicine; Visit Provider Family Medicine
DX: E86.0 Dehydration (principal); K52.9 Noninfective gastroenteritis and colitis, unspecified; R10.9 Unspecified abdominal pain; E03.9 Hypothyroidism, unspecified
CPT/HCPCS: 36415; 74177; 80053; 81003; 82272; 82653; 83630; 84443; 85025; 86140; 96360; J7030; Q9967

== ENCOUNTER 2024-05-15 15:10 | Emergency (ER) | payer MEDICARE, SELFPAY ==
[2024-05-15] VITALS (29 sets, daily range): BP systolic 98–112; BP diastolic 45–65; PULSE 72–104; RESP 15–30; TEMP 36.4; O2SAT 96–100
--- NOTE | ~2024-05-15 | CT_ITS ---
EXAMINATION: CTA chest PE protocol DATE: 05/15/2024 20:01 INDICATION: Shortness of breath. TECHNIQUE: Computed tomography angiography (CTA) of the chest was performed with 100 mL Omnipaque-350 intravenous contrast timed to evaluate the pulmonary arteries. Coronal maximum intensity projection 3D-reconstructions were created by the technologist. Automated exposure control and iterative reconst ruction technique were employed. The dose-length product was 301.12 mGy-cm. COMPARISON: Chest CT 11/20/2023, 05/08/23, 10/15/21 FINDINGS: There is mild scarring at right lung apex. There is severe emphysema. Calcified bilateral l marzena nodules and calcified hilar lymph nodes are consistent with old granulomatous disease. There is a n 8 mm nodule in right upper lobe, stable from 10/15/21, likely benign. No pleural effusion. There is a 5 mm nodule in right thyroid lobe, likely not clinically significant. The heart size is normal. The re are coronary artery calcifications. No pericardial effusion. The central pulmonary arteries are en larged, consistent with pulmonary arterial hypertension. There is no pulmonary embolus. There is mode rate thoracic spondylosis. IMPRESSION: 1. No pulmonary embolus. 2. Severe emphysema. Reviewed, dictated and finalized at location A. IER GENERAL
--- NOTE | ~2024-05-15 | XR_ITS ---
CHEST RADIOGRAPH, PA AND LATERAL CLINICAL HISTORY: increased shortness of breath . COMPARISON: 11/20/2023 TECHNIQUE: PA and lateral views of the chest. FINDINGS The cardiomediastinal silhouette is unremarkable. Calcified granulomas detected bilaterally. The remainder of the lungs are clear. Visualized osseous structures and soft tissues are unremarkable. IMPRESSION: No focal infiltrate or effusion. Reviewed, dictated and finalized at location A. EL LOCOMOTIVE FIRER/FIREMAN
--- NOTE | 2024-05-15 17:44 | ECG_ITS ---
Test Date: 2024-05-15 18:17:22 Measurements Intervals [place] Rate: 94 P: 73 WI: 133 QRS: 69 QRSD: 85 T: 72 QT: 319 QTc: 399 Interpretive Statements SINUS RHYTHM POSSIBLE LEFT ATRIAL ENLARGEMENT BASELINE ARTIFACT- I, II, AVR, AVL, AVF, V5 BORDERLINE ECG No previous ECG available for comparison Electronically Signed On 05-15-2024 18:20:36 [employer]STRUCTOR [employer]OPING by Prabhu Bhardwaj D.O.
--- NOTE | 2024-05-15 17:45 | ED_ITS ---
HPI - SOB/Dyspnea General Chief Complaint: Shortness of Breath/Dyspnea <Kaleyronel Rhodes APRN - Last Filed: 05/15/24 17:49> Stated Complaint: sob <Kaleyronel Rhodes APRN - Last Filed: 05/15/24 17:49> Time Seen by Provider: 05/15/24 17:40 <Kaley Rhodes APRN - Last Filed: 05/15/24 17:49> Focused HPI: Patient is a 63-year-old female presents to the ER with increased shortness of breath. She went to her regular doctor's appointment today and her PCP advised her to go to the ER where her pulmon ologist practices. Patient presented to the ER the ambulance. She reports they gave her a nebulizer treatment en route. Patient endorses a history of COPD, breast cancer, and HTN. She reports these exacerbations started approximately 2-3 weeks ago. Patient has been using her regularly prescribed inhalers at home. GENERAL: Well-appearing, well-nourished, and in no acute distress. HEAD: Normocephalic, atraumatic. CHEST: Clear to auscultation. ?Mild respiratory distress. 4L NC @ baseline and time of exam. HEART: Tachycardia, regular rhythm. NEURO: ?Alert and oriented x3. Patient screened in triage and initial orders placed.? ?Additional care and disposition to be based upon?diagnostic testing and treatment. <Kaley Rhodes APRN - Last Filed: 05/15/24 17:49> Related Data Allergies/Adverse Reactions: Allergies Allergy/AdvReac Type Severity Reaction Status Date / Time No Known Allergies Allergy Unknown Verified 05/15/24 13:36 <Kaley Rhodes APRN - Last Filed: 05/15/24 17:49> Review of Systems Review of Systems: All systems reviewed & are unremarkable except as noted in HPI and below <Arie Azul MD - Last Filed: 05/15/24 22:08> PMFSH Past Medical History Medical History: Medical History Abdominal distension Belching Breast cancer Right Breast Removed. SP Chemo. Completed Radiation -19. COPD (chronic obstructive pulmonary disease) Depression Duodenal diverticulum History of DVT (deep vein thrombosis) Ileus, unspecified Intermittent diarrhea Underweight Upper abdominal pain <Kaley Rhodes STRUCTURES ENGINEER - Last Filed: 05/15/24 17:49> Surgical History Surgical History: Surgical History History of cholecystectomy History of hysterectomy History of repair of rotator cuff Right Shoulder <Kaley Rhodes STRUCTURES ENGINEER - Last Filed: 05/15/24 17:49> Family History Family History: Family History Other Diabetes mellitus <Kaley Rhodes, STRUCTURES ENGINEER - Last Filed: 05/15/24 17:49> Social History Social History: Social History Smoking packs per day: 1 Smoking cigarettes per day: 20.0 Years smoked: 45 Smoking pack-years: 45.00 Smoking status: Former smoker Tobacco type: cigarettes Alcohol intake: never Substance use: never Substance use type: does not use Lack of Transportation: No Lack of Food: Never True Current Housing: I Have Housing Concerned About Future Housing: No Difficulty Paying Gas/Electric Bills: No Difficulty Paying for Meds: No Currently Unemployed: No Education: High School Diploma/GED Difficulty w/ Childcare or Family Care: No Living arrangements: alone Occupation/Education: occupation Additional occupation/education comments: Employed at [employer] Gender identity (if verbalized by the patient): Female Sexual Orientation (if Verbalized by the Patient): Straight or Heterosexual Spiritual care concerns: No <Kaley Rhodes, STRUCTURES ENGINEER - Last Filed: 05/15/24 17:49> Course Course Emergency Course: 22:30 - this patient was signed out to me by previous ED physician, Dr. Azul pending a CT angiogram of the chest to rule out PE. 00:15 - STAT Rad interpretation of CTA chest demonstrates no pulmonary emb olism is identified. The patient states she feels as though she is at her baseline. She is comfortable discharge. I advised the patient follow-up with her primary care doctor. I discussed the findings and recommendations with The patient and her family. Discussed return and emergency precautions including signs/symptoms of ACS and respiratory distress. The patient and her family voiced understanding and agreement with the plan. All questions answered to their satisfaction. <Tc Blanc MD - Last Filed: 05/16/24 06:32> Vital Signs Vital signs: Vital Signs Temperature 97.6 F 05/15/24 15:17 Pulse Rate 102 H 05/15/24 15:17 Respiratory Rate 16 05/15/24 15:17 Blood Pressure 104/60 05/15/24 15:17 Pulse Oximetry 99 05/15/24 15:17 Oxygen Delivery Nasal Cannula 05/15/24 15:17 Oxygen Flow Rate 4 05/15/24 15:17 Temperature 97.6 F 05/15/24 15:17 Pulse Rate 83 05/16/24 00:00 Respiratory Rate 20 05/16/24 00:00 Blood Pressure 104/61 05/16/24 00:00 Pulse Oximetry 98 05/16/24 00:00 Oxygen Delivery Nasal Cannula 05/15/24 19:15 Oxygen Flow Rate 4 05/15/24 19:15 <Kaley Rhodes APRN - Last Filed: 05/15/24 17:49> Vital Signs Temperature 97.6 F 05/15/24 15:17 Pulse Rate 102 H 05/15/24 15:17 Respiratory Rate 16 05/15/24 15:17 Blood Pressure 104/60 05/15/24 15:17 Pulse Oximetry 99 05/15/24 15:17 Oxygen Delivery Nasal Cannula 05/15/24 15:17 Oxygen Flow Rate 4 05/15/24 15:17 Temperature 97.6 F 05/15/24 15:17 Pulse Rate 83 05/16/24 00:00 Respiratory Rate 20 05/16/24 00:00 Blood Pressure 104/61 05/16/24 00:00 Pulse Oximetry 98 05/16/24 00:00 Oxygen Delivery Nasal Cannula 05/15/24 19:15 Oxygen Flow Rate 4 05/15/24 19:15 <Arie Azul MD - Last Filed: 05/15/24 22:08> Vital Signs Temperature 97.6 F 05/15/24 15:17 Pulse Rate 102 H 05/15/24 15:17 Respiratory Rate 16 05/15/24 15:17 Blood Pressure 104/60 05/15/24 15:17 Pulse Oximetry 99 05/15/24 15:17 Oxygen Delivery Nasal Cannula 05/15/24 15:17 Oxygen Flow Rate 4 05/15/24 15:17 Temperature 97.6 F 05/15/24 15:17 Pulse Rate 83 05/16/24 00:00 Respiratory Rate 20 05/16/24 00:00 Blood Pressure 104/61 05/16/24 00:00 Pulse Oximetry 98 05/16/24 00:00 Oxygen Delivery Nasal Cannula 05/15/24 19:15 Oxygen Flow Rate 4 05/15/24 19:15 <Tc Blanc MD - Last Filed: 05/16/24 06:32> MDM - SOB/Dyspnea MDM Narrative Medical decision making narrative: Patient came in from her doctor's office for concerns for COPD exacerbation. The time I saw her, she feels completely back to normal, her vitals are regular, and she is well-appearing. She does not want to stay much longer but a convinced her that we can get a cardiac workup on her. Given dose of dexamethasone. Highly suspect COPD. Workup reviewed, essentially unremarkable D-dimer is elevated so had to obtain a CTA chest. Pending CTA chest and patient signed out to oncoming physician Dr. Blanc. <Arie Azul MD - Last Filed: 05/15/24 22:08> Lab Data Result diagrams: 05/15/24 18:32 05/15/24 18:32 <Kaley Rhodes APRN - Last Filed: 05/15/24 17:49> Labs: Lab Results 05/15/24 05/15/24 Range/Units 18:32 22:26 WBC 8.9 (4.5-10.0) K/mm3 RBC 3.67 L (4.2-5.4) M/mm3 Hgb 10.9 L (12.0-15.0) g/dL Hct 38.1 (37.0-47.0) % MCV 103.8 H (80-100) fl MCH 29.7 (26-34) pg MCHC 28.6 L (32-36) g/dl RDW 13.0 (11.5-14.5) % Plt Count 188 (150-375) k/mm3 MPV 10.9 H (7.4-10.4) fl Immature Gran % (Auto) 0.2 (0-0.5) % Neut % (Auto) 83.9 H (45.5-73.1) % Lymph % (Auto) 8.0 L (18.3-44.2) % [place] % (Auto) 6.6 (2.6-8.5) % Eos % (Auto) 0.7 (0-4.4) % Baso % (Auto) 0.6 (0.2-1.2) % Lymph # (Auto) 0.71 L (0.9-3.2) K/mm3 [place] # (Auto) 0.6 (0.1-0.6) K/mm3 Eos # (Auto) 0.1 (0-0.3) K/mm3 Baso # (Auto) 0.1 (0.0-0.1) K/mm3 Abs Immat Gran (auto) 0.02 (0.00-0.031) K/mm3 Absolute Neuts (auto) 7.4 H (1.3-6.7) K/mm3 Absolute Nucleated RBC 0.000 (0.0-0.012) K/mm3 Nucleated RBC % 0.0 (0.0-0.2) % PT 12.9 (11.1-14.7) Seconds INR 0.9 APTT 25.1 (22.3-36.8) Seconds D-Dimer 0.83 H (<0.48) ug/mL Sodium 139 (137-145) mmol/L Potassium 4.1 (3.4-5.0) mmol/L Chloride 84 L (98-107) mmol/L Carbon Dioxide > 40 H (22-30) mmol/L Anion Gap (4-12) mmol/L BUN 23 H (7-17) mg/dL Creatinine 0.50 L (0.7-1.0) mg/dL Estim Creat Clear Calc Not Reportable Estimated GFR > 60 (59 - ) Glucose 184 H (65-110) mg/dL Lactic Acid 2.0 (0.7-2.0) mmol/L Calcium 9.0 (8.4-10.2) mg/dL Magnesium 2.1 (1.6-2.3) mg/dL Total Bilirubin 0.2 (0.2-1.3) mg/dL AST 28 (14-36) U/L ALT 36 H (6-35) U/L Alkaline Phosphatase 58 (38-126) U/L Troponin I < 0.012 (0.000-0.034) ng/mL NT-Pro-B Natriuret Pep 165 H (19.9-100) pg/mL Total Protein 7.0 (6.3-8.2) g/dL Albumin 3.9 (3.5-5.1) g/dL Urine Color Yellow (Yellow) Urine Appearance Clear (Clear) Urine pH 8.5 (5.0-9.0) Ur Specific [place] > 1.045 H (1.001-1.035) Urine Protein Trace (Negative) mg/dL Urine Glucose (UA) Negative (Negative) mg/dL Urine Ketones Negative (Negative) mg/dL Ur Blood (Man) Negative (Negative) Urine Nitrate Negative (Negative) Urine Bilirubin Negative (Negative) Urine Urobilinogen 0.2 (<2.0) mg/dL Leukocyte Esterase Rfl Negative (Negative) JENA/UL Urine RBC 0-2 (0-2) /hpf Urine WBC 0-5 (0-3) /hpf Ur Squamous Epith Cells Few (Few) /hpf Urine Bacteria Rare /hpf Urine Casts 0-2 <Kaley Rhodes, STRUCTURES ENGINEER - Last Filed: 05/15/24 17:49> Lab Results 05/15/24 05/15/24 Range/Units 18:32 22:26 WBC 8.9 (4.5-10.0) K/mm3 RBC 3.67 L (4.2-5.4) M/mm3 Hgb 10.9 L (12.0-15.0) g/dL Hct 38.1 (37.0-47.0) % MCV 103.8 H (80-100) fl MCH 29.7 (26-34) pg MCHC 28.6 L (32-36) g/dl RDW 13.0 (11.5-14.5) % Plt Count 188 (150-375) k/mm3 MPV 10.9 H (7.4-10.4) fl Immature Gran % (Auto) 0.2 (0-0.5) % Neut % (Auto) 83.9 H (45.5-73.1) % Lymph % (Auto) 8.0 L (18.3-44.2) % [place] % (Auto) 6.6 (2.6-8.5) % Eos % (Auto) 0.7 (0-4.4) % Baso % (Auto) 0.6 (0.2-1.2) % Lymph # (Auto) 0.71 L (0.9-3.2) K/mm3 [place] # (Auto) 0.6 (0.1-0.6) K/mm3 Eos # (Auto) 0.1 (0-0.3) K/mm3 Baso # (Auto) 0.1 (0.0-0.1) K/mm3 Abs Immat Gran (auto) 0.02 (0.00-0.031) K/mm3 Absolute Neuts (auto) 7.4 H (1.3-6.7) K/mm3 Absolute Nucleated RBC 0.000 (0.0-0.012) K/mm3 Nucleated RBC % 0.0 (0.0-0.2) % PT 12.9 (11.1-14.7) Seconds INR 0.9 APTT 25.1 (22.3-36.8) Seconds D-Dimer 0.83 H (<0.48) ug/mL Sodium 139 (137-145) mmol/L Potassium 4.1 (3.4-5.0) mmol/L Chloride 84 L (98-107) mmol/L Carbon Dioxide > 40 H (22-30) mmol/L Anion Gap (4-12) mmol/L BUN 23 H (7-17) mg/dL Creatinine 0.50 L (0.7-1.0) mg/dL Estim Creat Clear Calc Not Reportable Estimated GFR > 60 (59 - ) Glucose 184 H (65-110) mg/dL Lactic Acid 2.0 (0.7-2.0) mmol/L Calcium 9.0 (8.4-10.2) mg/dL Magnesium 2.1 (1.6-2.3) mg/dL Total Bilirubin 0.2 (0.2-1.3) mg/dL AST 28 (14-36) U/L ALT 36 H (6-35) U/L Alkaline Phosphatase 58 (38-126) U/L Troponin I < 0.012 (0.000-0.034) ng/mL NT-Pro-B Natriuret Pep 165 H (19.9-100) pg/mL Total Protein 7.0 (6.3-8.2) g/dL Albumin 3.9 (3.5-5.1) g/dL Urine Color Yellow (Yellow) Urine Appearance Clear (Clear) Urine pH 8.5 (5.0-9.0) Ur Specific [place] > 1.045 H (1.001-1.035) Urine Protein Trace (Negative) mg/dL Urine Glucose (UA) Negative (Negative) mg/dL Urine Ketones Negative (Negative) mg/dL Ur Blood (Man) Negative (Negative) Urine Nitrate Negative (Negative) Urine Bilirubin Negative (Negative) Urine Urobilinogen 0.2 (<2.0) mg/dL Leukocyte Esterase Rfl Negative (Negative) JENA/UL Urine RBC 0-2 (0-2) /hpf Urine WBC 0-5 (0-3) /hpf Ur Squamous Epith Cells Few (Few) /hpf Urine Bacteria Rare /hpf Urine Casts 0-2 <Arie Azul MD - Last Filed: 05/15/24 22:08> Lab Results 05/15/24 05/15/24 Range/Units 18:32 22:26 WBC 8.9 (4.5-10.0) K/mm3 RBC 3.67 L (4.2-5.4) M/mm3 Hgb 10.9 L (12.0-15.0) g/dL Hct 38.1 (37.0-47.0) % MCV 103.8 H (80-100) fl MCH 29.7 (26-34) pg MCHC 28.6 L (32-36) g/dl RDW 13.0 (11.5-14.5) % Plt Count 188 (150-375) k/mm3 MPV 10.9 H (7.4-10.4) fl Immature Gran % (Auto) 0.2 (0-0.5) % Neut % (Auto) 83.9 H (45.5-73.1) % Lymph % (Auto) 8.0 L (18.3-44.2) % [place] % (Auto) 6.6 (2.6-8.5) % Eos % (Auto) 0.7 (0-4.4) % Baso % (Auto) 0.6 (0.2-1.2) % Lymph # (Auto) 0.71 L (0.9-3.2) K/mm3 [place] # (Auto) 0.6 (0.1-0.6) K/mm3 Eos # (Auto) 0.1 (0-0.3) K/mm3 Baso # (Auto) 0.1 (0.0-0.1) K/mm3 Abs Immat Gran (auto) 0.02 (0.00-0.031) K/mm3 Absolute Neuts (auto) 7.4 H (1.3-6.7) K/mm3 Absolute Nucleated RBC 0.000 (0.0-0.012) K/mm3 Nucleated RBC % 0.0 (0.0-0.2) % PT 12.9 (11.1-14.7) Seconds INR 0.9 APTT 25.1 (22.3-36.8) Seconds D-Dimer 0.83 H (<0.48) ug/mL Sodium 139 (137-145) mmol/L Potassium 4.1 (3.4-5.0) mmol/L Chloride 84 L (98-107) mmol/L Carbon Dioxide > 40 H (22-30) mmol/L Anion Gap (4-12) mmol/L BUN 23 H (7-17) mg/dL Creatinine 0.50 L (0.7-1.0) mg/dL Estim Creat Clear Calc Not Reportable Estimated GFR > 60 (59 - ) Glucose 184 H (65-110) mg/dL Lactic Acid 2.0 (0.7-2.0) mmol/L Calcium 9.0 (8.4-10.2) mg/dL Magnesium 2.1 (1.6-2.3) mg/dL Total Bilirubin 0.2 (0.2-1.3) mg/dL AST 28 (14-36) U/L ALT 36 H (6-35) U/L Alkaline Phosphatase 58 (38-126) U/L Troponin I < 0.012 (0.000-0.034) ng/mL NT-Pro-B Natriuret Pep 165 H (19.9-100) pg/mL Total Protein 7.0 (6.3-8.2) g/dL Albumin 3.9 (3.5-5.1) g/dL Urine Color Yellow (Yellow) Urine Appearance Clear (Clear) Urine pH 8.5 (5.0-9.0) Ur Specific [place] > 1.045 H (1.001-1.035) Urine Protein Trace (Negative) mg/dL Urine Glucose (UA) Negative (Negative) mg/dL Urine Ketones Negative (Negative) mg/dL Ur Blood (Man) Negative (Negative) Urine Nitrate Negative (Negative) Urine Bilirubin Negative (Negative) Urine Urobilinogen 0.2 (<2.0) mg/dL Leukocyte Esterase Rfl Negative (Negative) JENA/UL Urine RBC 0-2 (0-2) /hpf Urine WBC 0-5 (0-3) /hpf Ur Squamous Epith Cells Few (Few) /hpf Urine Bacteria Rare /hpf Urine Casts 0-2 <Tc Blanc MD - Last Filed: 05/16/24 06:32> ABG Data ABG results: 05/15/24 18:14 Puncture Site Left radial ABG pH 7.354 ABG pCO2 84.5 H* ABG pO2 81.7 ABG PO2/FiO2 Ratio 2.27 ABG HCO3 46.0 H ABG O2 Saturation 94.9 L ABG O2 Content 16.4 ABG Base Excess 16.6 A-a Gradient 77.0 Oxyhemoglobin 95.2 Total Hemoglobin 12.2 O2 Delivery Device Nasal cannula O2 Liters/Min 4.0 FiO2 36 <Kaley Rhodes APRN - Last Filed: 05/15/24 17:49> 05/15/24 18:14 Puncture Site Left radial ABG pH 7.354 ABG pCO2 84.5 H* ABG pO2 81.7 ABG PO2/FiO2 Ratio 2.27 ABG HCO3 46.0 H ABG O2 Saturation 94.9 L ABG O2 Content 16.4 ABG Base Excess 16.6 A-a Gradient 77.0 Oxyhemoglobin 95.2 Total Hemoglobin 12.2 O2 Delivery Device Nasal cannula O2 Liters/Min 4.0 FiO2 36 <Arie Azul MD - Last Filed: 05/15/24 22:08> 05/15/24 18:14 Puncture Site Left radial ABG pH 7.354 ABG pCO2 84.5 H* ABG pO2 81.7 ABG PO2/FiO2 Ratio 2.27 ABG HCO3 46.0 H ABG O2 Saturation 94.9 L ABG O2 Content 16.4 ABG Base Excess 16.6 A-a Gradient 77.0 Oxyhemoglobin 95.2 Total Hemoglobin 12.2 O2 Delivery Device Nasal cannula O2 Liters/Min 4.0 FiO2 36 <Tc Blanc MD - Last Filed: 05/16/24 06:32> Discharge Plan Discharge Clinical Impression: COPD (chronic obstructive pulmonary disease) Qualifiers: COPD type: unspecified COPD Qualified Code(s): J44.9 - Chronic obstructive pulmonary disease, unspecified <Kaley Rhodes APRN - Last Filed: 05/15/24 17:49> Patient Disposition: Home, Self-Care <Kaley Rhodes APRN - Last Filed: 05/15/24 17:49> Condition: Stable <Kaley Rhodes APRN - Last Filed: 05/15/24 17:49> Instructions: Antibiotic Form, COPD (Chronic Obstructive Pulmonary Disease) (ED) <Kaley Rhodes APRN - Last Filed: 05/15/24 17:49> Additional Instructions: You were seen in the emergency department. A CT of the chest was not concerning for blood clot in the lung. I recommend following up with your primary care doctor. If you develop chest pain, you worsening shortness of breath, loss of consciousness, or if you have other emergent concerns for life, limb, or eyesight, return to the emergency department. <Kaley Rhodes APRN - Last Filed: 05/15/24 17:49> Patient Language: Turkish <Kaley Rhodes APRN - Last Filed: 05/15/24 17:49> Prescriptions: No Action formoterol fumarate [Perforomist] 20 mcg/2 mL solution for nebulization See Rx Instructions .ROUTE .COMPLEX Qty: 60 5RF Dose Instruction: USE 1 VIAL IN NEBULIZER TWICE DAILY - morning and evening Rx Instructions: USE 1 VIAL IN NEBULIZER TWICE DAILY - morning and evening lisinopril 10 mg tablet See Rx Instructions .ROUTE .COMPLEX Qty: 90 2RF Dose Instruction: TAKE 1 TABLET BY MOUTH DAILY Rx Instructions: TAKE 1 TABLET BY MOUTH DAILY omeprazole 40 mg capsule,delayed release(DR/EC) See Rx Instructions .ROUTE .COMPLEX Qty: 180 1RF Dose Instruction: TAKE 1 CAPSULE BY MOUTH TWICE A DAY Rx Instructions: TAKE 1 CAPSULE BY MOUTH TWICE A DAY budesonide 0.5 mg/2 mL suspension for nebulization See Rx Instructions .ROUTE .COMPLEX Qty: 60 5RF Dose Instruction: USE 1 VIAL IN NEBULIZER TWICE DAILY - rinse mouth after treatment Rx Instructions: USE 1 VIAL IN NEBULIZER TWICE DAILY - rinse mouth after treatment <Kaley Rhodes APRN - Last Filed: 05/15/24 17:49> Follow-up/Referrals: Khris Borden DO [Primary Care Provider] - 1 Week <Kaley Rhodes APRN - Last Filed: 05/15/24 17:49> Time of Disposition: 00:47 <Kaley Rhodes APRN - Last Filed: 05/15/24 17:49> 00:47 <Arie Azul MD - Last Filed: 05/15/24 22:08> 00:47 <Tc Blanc MD - Last Filed: 05/16/24 06:32> Sign Out Sign Out Data: Patient Sign Out occurred on 05/15/24 at 22:21. Patient's care was discussed, and care was transferred from Arie Azul MD to Tc Blanc MD. <Kaley Rhodes APRN - Last Filed: 05/15/24 17:49>
--- NOTE | 2024-05-15 18:02 | PCRCNOTE ---
ABG'S delayed pt in waiting room when ABG'S were ordered
[2024-05-15 18:17] LABS: Base Excess ABG 16.6 mEq/l (+/-2.0); Fractional Inspired Oxygen 36 %; Oxygen Content ABG 16.4 %vol (16.0-22.0); Oxygen Saturation ABG 94.9 % (95.0-100.0); Oxyhemoglobin 95.2 % THb (90.0-100.0); PO2 ABG 81.7 mmHg (80.0-100.0); PO2 FiO2 Ratio Arterial Blood 2.27 %; Total Hemoglobin 12.2 g/dL (12.0-18.0); pH ABG 7.354 (7.350-7.450)
[2024-05-15 18:22] LABS: Device NASAL CANNULA; Modified Allen's Test Pass; PCO2 ABG 84.5 mmHg (35.0-45.0); Site Drawn LEFT RADIAL
[2024-05-15 18:40] LABS: Basophils Absolute Auto 0.1 K/mm3 (0.0-0.1); Basophils Percent Auto 0.6 % (0.2-1.2); Eosinophils Absolute Auto 0.1 K/mm3 (0-0.3); Eosinophils Percent Auto 0.7 % (0-4.4); Hematocrit 38.1 % (37.0-47.0); Hemoglobin 10.9 g/dL (12.0-15.0); Immature Granulocyte Absolute 0.02 K/mm3 (0.00-0.031); Immature Granulocyte Percent A 0.2 % (0-0.5); Lymphocytes Absolute Auto 0.71 K/mm3 (0.9-3.2); Mean Corpuscular HGB Conc 28.6 g/dl (32-36); Mean Corpuscular Hemoglobin 29.7 pg (26-34); Mean Corpuscular Volume 103.8 fl (80-100); Mean Platelet Volume 10.9 fl (7.4-10.4); Monocytes Absolute Auto 0.6 K/mm3 (0.1-0.6); Monocytes Percent Auto 6.6 % (2.6-8.5); Neutrophils Absolute Auto 7.4 K/mm3 (1.3-6.7); Neutrophils Percent Auto 83.9 % (45.5-73.1); Platelet Count Result 188 k/mm3 (150-375); Red Blood Count 3.67 M/mm3 (4.2-5.4); White Blood Count 8.9 K/mm3 (4.5-10.0)
[2024-05-15 18:54] LABS: INR 0.9; Prothrombin Time 12.9 Seconds (11.1-14.7)
[2024-05-15 18:55] LABS: Alanine Aminotransferase 36 U/L (6-35); Albumin Level 3.9 g/dL (3.5-5.1); Alkaline Phosphatase 58 U/L (38-126); Aspartate Amino Transferase 28 U/L (14-36); Bilirubin,Total 0.2 mg/dL (0.2-1.3); Blood Urea Nitrogen 23 mg/dL (7-17); Carbon Dioxide > 40 mmol/L (22-30); Chloride 84 mmol/L (98-107); Estimated Glomerular Filt Rate > 60; Glucose 184 mg/dL (65-110); Magnesium 2.1 mg/dL (1.6-2.3); Partial Thromboplastin Time 25.1 Seconds (22.3-36.8); Potassium 4.1 mmol/L (3.4-5.0); Sodium 139 mmol/L (137-145)
[2024-05-15] MEDS: dexAMETHasone SOD PHOS INJ 10 MG/ML 1 ML VIAL IV PUSH (18:55)
[2024-05-15 19:03] LABS: NT Pro B Type Natriuretic Pept 165 pg/mL (19.9-100); Troponin I < 0.012 ng/mL (0.000-0.034)
--- NOTE | 2024-05-15 19:17 | PC.NURSE ---
Report received from BRIGHT Myers. Assumed care of patient at this time.
[2024-05-15 19:25] LABS: D Dimer 0.83 ug/mL (<0.48)
--- NOTE | 2024-05-15 19:45 | PC.NURSE ---
Patient taken to CT via stretcher at this time.
--- NOTE | 2024-05-15 22:19 | PC.NURSE ---
Patient calls out requesting update. This RN informed patient that patient is waiting for her imaging to be read by radiology. Patient verbalized understanding, requested to use bathroom. This RN informed of need for urine sample, BSC brought to room.
[2024-05-15 23:19] LABS: Add Urine Microscopic? YES; Appearance Urine Clear (Clear); Bacteria Urine Rare /hpf; Bilirubin Urine Negative (Negative); Blood Urine Negative (Negative); Color Urine Yellow (Yellow); Glucose Urine UA Negative (Negative); Ketones Urine Negative (Negative); Leukocyte Esterase Ur Negative LEU/UL (Negative); Nitrate Urine Negative (Negative); Non Pathogenic Casts 0-2; Protein Urine Trace mg/dL (Negative); RBC Urine 0-2 /hpf (0-2); Specific Grav Ur > 1.045 (1.001-1.035); Squamous Epithelial Cell Urine Few /hpf (Few); Urobilinogen Urine 0.2 mg/dL (<2.0); WBC Urine 0-5 /hpf (0-3); pH Urine 8.5 (5.0-9.0)
[2024-05-16] VITALS: BP 104/61; PULSE 83; RESP 20; O2SAT 98
== END 2024-05-16 01:08 | disposition home or self-care (01) ==
PROVIDERS: Registered Nurse; Emergency Provider Preventive Medicine Aerospace Medicine; PCP Family Medicine
DX: J43.9 Emphysema, unspecified (principal); I10 Essential (primary) hypertension; Z85.3 Personal history of malignant neoplasm of breast; Z86.718 Personal history of other venous thrombosis and embolism; Z87.891 Personal history of nicotine dependence; R94.31 Abnormal electrocardiogram [ECG] [EKG]
CPT/HCPCS: 36415; 36600; 71046; 71275; 80053; 81001; 82805; 83605; 83735; 83880; 84484; 85018; 85025; 85380; 85610; 85730; 93005; 96374; 99284; J1100; Q9967

== ENCOUNTER 2024-09-15 14:51 | Observation (INO) | payer MEDICARE, SELFPAY ==
[2024-09-15] VITALS (27 sets, daily range): BP systolic 94–128; BP diastolic 53–83; PULSE 80–105; RESP 16–23; TEMP 36.3–36.5; O2SAT 87–100; BMI 23.9
--- NOTE | ~2024-09-15 | CT_ITS ---
EXAMINATION: CT cervical spine wo con DATE: 09/15/2024 16:31 INDICATION: fall TECHNIQUE: Computed tomography (CT) of the cervical spine was performed without intravenous contrast. Automated exposure control and iterative reconstruction technique were employed. The dose-length pro duct was 584.27 mGy-cm. COMPARISON: CTPA 10/15/2021 and 05/15/2024. FINDINGS: Vertebral Body Alignment: Minimal 2 mm retrolisthesis at C4-5. Trace anterolistheses at C4-5 and C5-6 , presumably on a degenerative basis. Craniocervical and atlantoaxial alignment: Fusion of the LS to the base of the skull. Alignment intac t. Osseous structures/fracture: No evidence of a lytic or blastic process in the visualized spine. No e vidence of acute fracture. Bilateral C2-3 and C5-6 facet fusion. Left C6-7 facet fusion Cervical soft tissues: The paraspinal soft tissues planes are maintained. Severe emphysematous change . Right apical pleural thickening and scarring. Associated 8 mm irregular right apical nodule, which has increased slightly in size over time. Ovoid fat density 4.3 cm mass with minimal peripheral calci fication in the floor of mouth/sublingual space. Degenerative changes: Multilevel mild degenerative disc disease and severe facet arthropathy. Severe left C3-4 neural foraminal narrowing secondary to degenerative uncovertebral joint and facet change. No severe central canal narrowing. IMPRESSION: No acute fracture or traumatic malalignment in the cervical spine. Enlarging 8 mm right apical pulmonary nodule, recommend follow-up low-dose noncontrast CT in 6-12 mon ths. 4.3 cm presumed lipoma in the right floor the mouth/sublingual space. Reviewed, dictated and finalized at location K. IMPRESSION: No acute fracture or traumatic malalignment in the cervical spine. Enlarging 8 mm right apical pulmonary nodule, recommend follow-up low-dose nonc ontrast CT in 6-12 months. 4.3 cm presumed lipoma in the right floor the mouth/sublingual space.
--- NOTE | ~2024-09-15 | CT_ITS ---
EXAMINATION: CT brain wo con DATE: 09/15/2024 16:31 INDICATION: Head injury. TECHNIQUE: Computed tomography (CT) of the head was performed without intravenous contrast. The mA wa s adjusted according to patient size. Iterative reconstruction technique was employed. The dose-lengt h product was 605.33 mGy-cm. COMPARISON: Head CT 07/16/16 FINDINGS: There is no intracranial hemorrhage, acute infarction, or abnormal intracranial mass lesion . The ventricles are normal in size. The orbits are normal. There is mild mucosal thickening in the p aranasal sinuses. The mastoid air cells are normal. IMPRESSION: 1. Normal brain. Reviewed, dictated and finalized at location B. IMPRESSION: 1. Normal brain.
--- NOTE | ~2024-09-15 | CT_ITS ---
EXAMINATION:CT diagnostic chest wo con DATE: 09/15/2024 16:30 INDICATION: Right chest pain. Fall. TECHNIQUE: Computed tomography (CT) of the chest was performed without intravenous contrast. Automate d exposure control and iterative reconstruction technique were employed. The dose-length product (DLP ) was 160.68 mGy-cm. COMPARISON: Chest CT 05/15/2024, 10/15/2021, 11/20/23 FINDINGS: There is severe emphysema. There is an 8 mm nodule in right upper lobe, stable from 10/16/19 22, likely benign. There is a 7 mm nodule in left upper lobe, increased from 6 mm on 11/20/23. A calci fied left lung nodule and calcified left hilar lymph nodes are consistent with old granulomatous dise ase. No pleural effusion. The heart size is normal. There are coronary artery calcifications. No ban cardial effusion. The central pulmonary is enlarged, consistent with pulmonary arterial hypertension. There is mild thoracic spondylosis. IMPRESSION: 1. Severe emphysema. 2. 7 mm pulmonary nodule suspicious for primary bronchogenic carcinoma. Noncontrast low-dose chest CT is recommended in 3 months. Reviewed, dictated and finalized at location B. IMPRESSION: 1. Severe emphysema. 2. 7 mm pulmonary nodule suspicious for primary bronchogenic carcinoma. Noncont rast low-dose chest CT is recommended in 3 months.
--- NOTE | 2024-09-15 15:22 | ED_ITS ---
HPI - Fall General Chief Complaint: Fall Stated Complaint: falls, low O2 Source: patient and EMS Mode of arrival: EMS History of Present Illness HPI Narrative: 63 YEARS OLD WHITE FEMALE LIVES ALONE, CAME TO THE ED FROM HOME BY AMBULANCE BECAUSE OF AT LEAST 3 FALLS OVER THE LAST 3 WEEKS OF UNKNOWN REASON. PATIENT WAS IN HER WAY TO THE DOCTOR TODAY FELL ON THE RIGHT SIDE OF HER BODY, STRIKING THE GROUND WITH HER HEAD AND RIGHT RIBS, SHE DENIES LOSS OF CONSCIOUSNESS, HEAD OR NECK PAIN. CURRENTLY PATIENT IS AWAKE, ALERT ORIENTED X4, PATIENT WAS FOUND BY EMT TO HAVE OXYGEN SATURATION 45% ON ROOM AIR HER OXYGEN TANK WAS NOT WORKING AT THAT TIME PATIENT ARRIVED TO THE ED WITH NON-REBREATHER, 95% SATURATION. PATIENT NORMALLY ON 6 L OF OXYGEN BY NASAL CANNULA. Related Data Home Medications ?Medication ?Instructions ?Recorded ?Confirmed ?Last Taken ?Type ensifentrine 3 mg/2.5 mL 2.5 ml inhalation QAM AND QPM 05/18/24 05/19/24 Unknown History suspension for nebulization (Ohtuvayre) Allergies Allergy/AdvReac Type Severity Reaction Status Date / Time No Known Allergies Allergy Unknown Verified 09/15/24 15:09 Review of Systems 2 Review of Systems: All systems reviewed & are unremarkable except as noted in HPI and below PMFSH Past Medical History Medical History Ileus, unspecified Duodenal diverticulum Intermittent diarrhea Belching Upper abdominal pain Abdominal distension History of DVT (deep vein thrombosis) Breast cancer Right Breast Removed. SP Chemo. Completed Radiation 1--19. Underweight Depression COPD (chronic obstructive pulmonary disease) Surgical History Surgical History History of repair of rotator cuff Right Shoulder History of hysterectomy History of cholecystectomy Family History Family History Other Diabetes mellitus Social History Social History Smoking packs per day: 1 Smoking cigarettes per day: 20.0 Years smoked: 45 Smoking pack-years: 45.00 Smoking status: Former smoker Tobacco type: cigarettes Alcohol intake: never Substance use: never Substance use type: does not use Lack of Transportation: No Lack of Food: Never True Current Housing: I Have Housing Concerned About Future Housing: No Difficulty Paying Gas/Electric Bills: No Difficulty Paying for Meds: No Currently Unemployed: No Education: High School Diploma/GED Difficulty w/ Childcare or Family Care: No Living arrangements: alone Occupation/Education: occupation Additional occupation/education comments: Employed at [employer] Gender identity (if verbalized by the patient): Female Sexual Orientation (if Verbalized by the Patient): Straight or Heterosexual Spiritual care concerns: No Exam 2 Narrative: GENERAL APPEARANCE: WELL-DEVELOPED, WELL-NOURISHED SKIN: NORMAL COLOR HEAD: NORMOCEPHALIC, NONTRAUMATIC EYES: CLEAR CONJUNCTIVA ENT: OROPHARYNX NORMAL, EARS NORMAL, NOSE NORMAL NECK: SUPPLE, NONTENDER CHEST AND RESPIRATORY: MODERATE DIMINUTION OF AIR ENTRY BILATERALLY NO WHEEZING OR RHONCHI HEART: REGULAR RATE/RHYTHM ABDOMEN: SOFT, NONTENDER, NO ORGANOMEGALY, QUIET BOWEL SOUNDS VASCULAR: NORMAL PERIPHERAL PULSES, NORMAL CAPILLARY REFILL. MUSCULOSKELETAL: NORMAL RANGE OF MOTION, NONTENDER BACK NEUROLOGIC: ALERT AND ORIENTED ?3, UNDERGROUND MINE MACHINERY MECHANIC IS NORMAL TESTED, NO GROSS MOTOR DEFICIT Course Vital Signs Vital signs: Vital Signs Temperature 36.5 C 09/15/24 14:51 Pulse Rate 105 H 09/15/24 14:51 Respiratory Rate 18 09/15/24 14:51 Blood Pressure 123/67 09/15/24 14:51 Pulse Oximetry 94 09/15/24 14:51 Oxygen Delivery Nasal Cannula 09/15/24 14:51 Oxygen Flow Rate 5 09/15/24 14:51 Temperature 36.5 C 09/15/24 14:51 Pulse Rate 85 09/15/24 16:45 Respiratory Rate 23 H 09/15/24 16:40 Blood Pressure 109/56 L 09/15/24 16:45 Pulse Oximetry 100 09/15/24 16:45 Oxygen Delivery BiPAP 09/15/24 16:45 Oxygen Flow Rate 6 09/15/24 15:05 MDM - Fall MDM Narrative Medical decision making narrative: PATIENT PRESENTS WITH HISTORY OF MULTIPLE FALLS, HYPOXIA WITH OXYGEN TANK NOT WORKING VITAL SIGNS SHOWING HEART RATE OF 105 OTHERWISE WITHIN NORMAL LIMIT PHYSICAL EXAMINATION SHOWING DIMINUTION OF AIR ENTRY BILATERALLY, SOME TENDERNESS AT THE RIGHT RIBS, RIGHT MASTECTOMY DIFFERENTIAL DIAGNOSIS INCLUDE COPD EXACERBATION, ELECTROLYTE IMBALANCE, DEHYDRATION, URINARY TRACT INFECTION, PNEUMONIA, RESPIRATORY VIRAL INFECTION BLOOD WORKUP TODAY INCLUDES CBC, CMP, TROPONIN, BNP SHOWED URINALYSIS SHOWED EVIDENCE OF INFECTION CHEST X-RAY SHOWED PULMONARY NODULE CT HEAD AND CT CERVICAL SPINE WITHOUT CONTRAST SHOWED NO ACUTE ABNORMALITIES PATIENT WOULD LIKE TO STAY IN THE HOSPITAL OVERNIGHT ADMIT WITH COPD EXACERBATION, URINARY TRACT INFECTION. Differential Diagnosis Differential diagnosis: Likely other ( ABOVE) Medical Records Attestation: I reviewed the patient's medical records. Lab Data Attestation: I reviewed the patient's lab results. 09/15/24 15:41 09/15/24 15:41 Labs: Lab Results 09/15/24 09/15/24 Range/Units 15:41 17:30 WBC 6.4 (4.8-10.8) K/mm3 RBC 3.46 L (4.20-5.40) M/mm3 Hgb 10.5 L (11.7-13.8) g/dL Hct 37.4 (35.0-42.0) % MCV 108.1 H (78.0-102.0) fL MCH 30.3 (27.0-31.0) pg MCHC 28.1 L (32-36) g/dL RDW 12.3 (11.6-14.4) % Plt Count 159 (150-420) K/mm3 MPV 11.1 (9.2-11.8) fl Immature Gran % (Auto) Not Reportable Neut % (Auto) Not Reportable Lymph % (Auto) Not Reportable [place] % (Auto) Not Reportable Eos % (Auto) Not Reportable Baso % (Auto) Not Reportable Lymph # (Auto) Not Reportable [place] # (Auto) Not Reportable Eos # (Auto) Not Reportable Baso # (Auto) Not Reportable Abs Immat Gran (auto) Not Reportable Absolute Neuts (auto) Not Reportable Absolute Nucleated RBC Not Reportable Total Counted 100 Neutrophils % (Manual) 84 H (46-73) % Band Neutrophils % 0 (0-6) % Lymphocytes % (Manual) 9 L (18-44) % Monocytes % (Manual) 7 (3-9) % Eosinophils % (Manual) 0 L (1-6) % Basophils % (Manual) 0 (0-1) % Nucleated RBC % Not Reportable Abs Neuts (Manual) 5.37 (1.7-7.2) K/mm3 Abs Lymphs (Manual) 0.57 L (1.1-4.5) K/mm3 Abs Monocytes (Manual) 0.44 (0.1-0.90) K/mm3 Absolute Eos (Manual) 0.00 L (0.02-0.50) K/mm3 Abs Basophils (Manual) 0.00 (0-0.1) K/mm3 Platelet Estimate Adequate (Adequate) Schistocytes Not Reportable PT 9.7 (9.50-12.1) Seconds INR 0.9 APTT 22.7 L (23.9-30.70) Sec Sodium 144 (136-145) mmol/L Potassium 4.4 (3.5-5.1) mmol/L Chloride 99 (98-108) mmol/L Carbon Dioxide > 45 H (21-32) mmol/L Anion Gap (4-12) mmol/L BUN 19 H (7-18) mg/dL Creatinine 0.63 (0.55-1.02) mg/dL Estim Creat Clear Calc 82 ml/min Estimated GFR > 60 (59 - ) Glucose 197 H (70-99) mg/dL Calculated Osmolality 305 H (285-295) mOsm/kg Calcium 9.6 (8.5-10.1) mg/dL Magnesium 2.0 (1.8-2.4) mg/dL Total Bilirubin 0.2 (0.00-1.00) mg/dL AST 12 L (15-37) U/L ALT 36 (14-59) U/L Alkaline Phosphatase 63 (46-116) U/L Troponin I 8.5 (0.00-60.4) ng/L NT-Pro-B Natriuret Pep 81 (0-125) pg/mL Total Protein 6.8 (6.4-8.2) g/dL Albumin 3.3 L (3.4-5.0) g/dL Urine Color Light yellow (Yellow) Urine Appearance Cloudy A (Clear) Urine pH 6.0 (5.0-8.0) Ur Specific [place] 1.025 H (1.010-1.020) Urine Protein Negative (Negative) Urine Glucose (UA) Negative (Negative) Urine Ketones Negative (Negative) Ur Blood (Man) Negative (Negative) Urine Nitrate Positive H (Negative) Urine Bilirubin Negative (Negative) Urine Urobilinogen 0.2 (0.2-1.0) mg/dL Leukocyte Esterase Rfl Negative (Negative) JENA/UL Urine RBC 0-2 (0-2) /hpf Urine WBC 4-6 H (0-3) /hpf Ur Squamous Epith Cells Few (Few) /hpf Urine Bacteria 3+ H (None) /hpf Influenza A (RT-PCR) Negative (Negative) Influenza B (RT-PCR) Negative (Negative) RSV (RT-PCR) Negative (Negative) SARS-CoV-2 RNA (RT-PCR) Negative (Negative) ABG Data ABG results: 09/15/24 15:40 Puncture Site Left radial ABG pH 7.33 L ABG pCO2 99.1 H* ABG pO2 74.1 L ABG HCO3 50.5 H ABG O2 Saturation 93.8 L ABG Base Excess 20.2 H Oxyhemoglobin 93.2 L O2 Delivery Device Nasal cannula O2 Liters/Min 5.0 Imaging Data Radiologist's impression: Impressions Head CT 09/15/24 16:34 IMPRESSION: 1. Normal brain. Chest CT 09/15/24 16:36 IMPRESSION: 1. Severe emphysema. 2. 7 mm pulmonary nodule suspicious for primary bronchogenic carcinoma. Noncontrast low-dose chest CT is recommended in 3 months. Critical Care Time Critical Care Time Critical Care Time: No Discharge Plan Discharge Clinical Impression: Urinary tract infection COPD (chronic obstructive pulmonary disease) Qualifiers: COPD type: unspecified COPD Qualified Code(s): J44.9 - Chronic obstructive pulmonary disease, unspecified Patient Disposition: Still a Patient Condition: Improved
--- NOTE | 2024-09-15 15:23 | ECG_ITS ---
Test Date: 2024-09-15 15:37:21 Measurements Intervals [place] Rate: 102 P: 85 TX: 130 QRS: 80 QRSD: 83 T: 83 QT: 314 QTc: 410 Interpretive Statements SINUS TACHYCARDIA LOW QRS VOLTAGE IN PRECORDIAL LEADS [QRS DEFLECTION < 1.0 mV IN CHEST LEADS] BASELINE ARTIFACT PRESENT Compared to ECG 05/15/2024 18:17:22 NO SIGNIFICANT CHANGES Electronically Signed On 09-16-2024 13:14:40 CDT by Kain Sanders M.D.
[2024-09-15] MEDS: SODIUM CHLORIDE 0.9% IV 1,000 ML 999 ML IV CONT (15:37)
[2024-09-15 15:44] LABS: Base Excess ABG 20.2 mmol/L (0-2); HCO3 ABG 50.5 mmol/L (23-29); Oxygen Saturation ABG 93.8 % (95-97); Oxyhemoglobin 93.2 % (94-100); PO2 ABG 74.1 mmHg (80-90); pH ABG 7.33 (7.35-7.45)
[2024-09-15 15:45] LABS: Device NASAL CANNULA; Modified Allen's Test Pass; Site Drawn LEFT RADIAL
[2024-09-15 15:46] LABS: PCO2 ABG 99.1 mmHg (35-45)
[2024-09-15] MEDS: IPRATROPIUM 0.5 MG/ALBUTEROL SULFATE 2.5 MG AMPUL.NEB 3 ML INHALATION ×2 (15:47→21:25)
[2024-09-15 15:49] LABS: Hematocrit 37.4 % (35.0-42.0); Hemoglobin 10.5 g/dL (11.7-13.8); Mean Corpuscular HGB Conc 28.1 g/dL (32-36); Mean Corpuscular Hemoglobin 30.3 pg (27.0-31.0); Mean Corpuscular Volume 108.1 fL (78.0-102.0); Mean Platelet Volume 11.1 fl (9.2-11.8); Platelet Count Result 159 K/mm3 (150-420); Red Blood Count 3.46 M/mm3 (4.20-5.40); Red Cell Distribution Width 12.3 % (11.6-14.4); White Blood Count 6.4 K/mm3 (4.8-10.8)
[2024-09-15 16:05] LABS: INR 0.9; Partial Thromboplastin Time 22.7 Sec (23.9-30.70); Prothrombin Time 9.7 Seconds (9.50-12.1)
--- NOTE | 2024-09-15 16:06 | PC.NURSE ---
PT TO CT AT THIS TIME. FAMILY AT BEDSIDE.
[2024-09-15 16:08] LABS: Troponin I 8.5 ng/L (0.00-60.4)
[2024-09-15 16:09] LABS: Alanine Aminotransferase 36 U/L (14-59); Albumin Level 3.3 g/dL (3.4-5.0); Alkaline Phosphatase 63 U/L (46-116); Aspartate Amino Transferase 12 U/L (15-37); Bilirubin,Total 0.2 mg/dL (0.00-1.00); Blood Urea Nitrogen 19 mg/dL (7-18); Calcium 9.6 mg/dL (8.5-10.1); Chloride 99 mmol/L (98-108); Estimated CRCL calculation 82 ml/min; Estimated Glomerular Filt Rate > 60; Glucose 197 mg/dL (70-99); NT Pro B Type Natriuretic Pept 81 pg/mL (0-125); Osmolality Calculated 305 mOsm/kg (285-295); Potassium 4.4 mmol/L (3.5-5.1); Sodium 144 mmol/L (136-145); Total Protein 6.8 g/dL (6.4-8.2)
[2024-09-15 16:12] LABS: Carbon Dioxide > 45 mmol/L (21-32)
[2024-09-15 16:25] LABS: Influenza A QL RT-PCR Negative (Negative); Influenza B QL RT-PCR Negative (Negative); RSV RNA, RT-PCR Negative (Negative); SARS-CoV-2 RNA PCR Negative (Negative)
[2024-09-15 16:34] LABS: Band Neutrophils Percent 0 % (0-6); Lymphocytes Absolute Manual 0.57 K/mm3 (1.1-4.5); Lymphocytes Percent Manual 9 % (18-44); Neutrophils Absolute Manual 5.37 K/mm3 (1.7-7.2); Neutrophils Percent Manual 84 % (46-73); Total Cells Counted 100
--- NOTE | 2024-09-15 16:34 | PC.NURSE ---
PT HAS RETURNED FROM CT, IS BEING PLACED ON BIPAP AT THIS TIME. FAMILY REMAINS AT BEDSIDE. WILL CONTINUE TO MONITOR.
[2024-09-15 16:35] LABS: Basophils Percent Manual 0 % (0-1); Eosinophils Percent Manual 0 % (1-6); Monocytes Absolute Manual 0.44 K/mm3 (0.1-0.90); Monocytes Percent Manual 7 % (3-9); Platelet Estimate Adequate (Adequate)
--- NOTE | 2024-09-15 16:45 | PC.NURSE ---
PT IS TEXTING ON CELL AND TALKING WITH FAMILY WITHOUT ANY DISTRESS NOTED. PT HAS BIPAP IN PLACE, FOLLOWING DIRECTIONS WITHOUT DIFFICULTY. PT IS AWAITING RESULTS AT THIS TIME. WILL CONTINUE TO MONITOR.
--- OUTSIDE RECORDS SUMMARY | 2024-09-15 16:56 | XMS_ITS | Encounter Summary ---
Author Organization [employer] Address 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
--- OUTSIDE RECORDS SUMMARY | 2024-09-15 16:56 | XMS_ITS | Clinical Summary ---
Author Organization [facility] Address [address] [place] [address] Care Team Providers Care Psychology Department Chair Name Role Phone Jacques Roman MD Unavailable Quinten Medina MD Unavailable [phone] Josie Mauro PhD Unavailable [phone] Khris Borden DO Primary Care Provider Kelsy Garcia MD Unavailable [phone] Kat Jean Baptiste Unavailable [phone] Allergies No known active allergies Medications PROAIR HFA 90 mcg/actuation inhaler INHALE 2 PUFFS BY MOUTH EVERY 4 HOURS NEEDED for shortness of breath 1 8 Active ipratropium-albute rol (DUO-NEB) 0.5-2.5 mg/3 mL nebulizer solutionIndication s:Chronic Obstructive Pulmonary Disease with Bronchospasms INHALE 1 VIAL (3 ML) IN NEBULIZER THREE TIMES DAILY as needed for shortness of breath 1 8 Active acetaminophen (TYLENOL) 325 mg tablet 2 tablets by mouth every 8 hours as needed for pain Active calcium carbonate-vitamin D3 500 mg(1,250mg) -125 unit per tabletIndications: Prevention of Vitamin D Deficiency Take 1 tablet by mouth every morning. Active desoximetasone (TOPICORT) 0.25 % cream Apply topically nightly. Apply topically at hs to treated breast for 2 months 60 g 2 8 Active SPIRIVA RESPIMAT 1.25 mcg/actuation inhaler INHALE 2 PUFFS BY MOUTH DAILY 4 9 Active ADVAIR DISKUS 250-50 mcg/dose diskus inhaler TAKE 1 PUFF BY MOUTH TWICE A DAY 2 9 Active predniSONE (DELTASONE) 20 mg tablet Take 40 mg by mouth daily. 0 9 Active TRELEGY ELLIPTA 100-62.5-25 mcg inhaler TAKE 1 PUFF BY MOUTH EVERY DAY 11 9 Active HYDROcodone-acetam inophen (NORCO) 5-325 mg per tablet TAKE 1 TABLET BY MOUTH EVERY 6 HOURS FOR 7 DAYS 0 9 Active OPTICHAMBER [facility] spacer USE DIRECTED WITH PROAIR. 3 9 Active rivaroxaban (XARELTO) 20 mg tabletIndications: Encounter for follow-up surveillance of breast cancer,Deep vein thrombosis (DVT) of proximal lower extremity, unspecified chronicity, unspecified laterality (HCC) Take 1 tablet (20 mg total) by mouth daily 30 tablet 3 9 Active capsaicin 0.1 % cream APPLY TOPICALLY 3 TIMES DAILY NEEDED FOR PAIN DONT WASH AREA FOR AT LEAST 30 MINUTES AFTER 0 Active valACYclovir (VALTREX) 1 gram tablet TAKE 1 TABLET BY MOUTH EVERY 8 HOURS FOR 7 DAYS 0 Active lisinopriL (PRINIVIL,ZESTRIL) 10 mg tablet 2 Active anastrozole (ARIMIDEX) 1 mg tabletIndications: Malignant neoplasm of upper-outer quadrant of right breast in female, estrogen receptor positive (HCC),High risk medications (not anticoagulants) long-term use TAKE 1 TABLET BY MOUTH EVERY DAY 90 tablet 3 2 Active Active Problems Problem Noted Date Diagnosed Date Encounter for monitoring anastrozole therapy Encounter for follow-up surveillance of breast c ancer 04/14/2018 History of breast cancer 03/18/2018 Acquired absence of right breast 03/18/2018 Wound dehiscence, surgical 03/18/2018 Other osteoporosis without current pathological fracture 09/25/2017 High risk medications (not anticoagulants) long- term use 06/18/2017 Malignant neoplasm of overla pping sites of right breast in female, estrogen receptor positive 06/12/2017 Cancer Staging:Clinical stage from 05/23/2017:Stage IB(cT2(2), cN0, cM0, G2, ER: Positive, AR: Positive, HER2: Negative) - Signed by Jacques Roman MD on 03/17/2018 Pathologic stage from 02/14/2018:No Stage Recommended(ypT1c(2), pNX, cM0, G1, ER: Positive, AR: Negative, HER2: Negative, Oncotype DX score: 11) - Signed by Jacques Roman MD on 03/17/2018 Side effects of treatment Immunizations Immunization Administration Dates Next Due Influenza, Quadrivalent, Carly l Culture-based MDCK, Preservative Free, Antibiotic Free, Intramuscular 03/01/2020 Moderna SARS-CoV-2 Monovalent Vaccination (12+ Y RS) 10/14/2020,09/14/2020 Surgical History Surgery Date Site/Laterality Comments ROTATOR CUFF REPAIR 07/08/2007 - 07/07/2008 Right Rotator cuff repair CHOLECYSTECTOMY Cholecystectomy HYSTERECTOMY Hysterectomy partial Medical History Medical History Date Comments Hx Other Medical Lung Disease Chronic obstructive pulmonary disease (HCC) COPD Axillary abscess Family History Medical History Relation Name Comments Cancer Other 1 Family history of Cancer; Diabetes Other 2 Family history of Diabetes mellitus; Heart disease Other 3 Family history of Heart disease; Hypertension Other 4 Family history of Hypertension; Lung disease Other 5 Family history of Lung disease; Anesthesia problems Neg Hx Relation Name Status Comments Other 1 Other 2 Other 3 Other 4 Other 5 Social History Tobacco Use Types Packs/Day Years Used Date Smoking Tobacco: Former Cigarettes 1.5 45.8 1 972 - 05/2017 Smokeless Tobacco: Never Tobacco Cessation:Counseling Given: No Alcohol Use Standard Drinks/Week Comments No 0 (1 standard drink = 0.6 oz pur e alcohol) Comments No Sex and Gender Information Value Date Recorded Sex Assigned at Not on file 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 Gender Identity Not on file Sexual Orientation Not on file 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 Not on file Not on file Not on file Obstetrics History Last Filed Vital Signs Vital Sign Reading Time Taken Comments Blood Pressure 132/87 08/10/2022 10:30 AM SUPERVISOR DENT[employer]ORATORY Pulse 109 08/10/2022 10:30 AM SUPERVISOR DENTAL [employer]ORATORY Temperature 36.3 C (97.4 F) 08/10/2022 10:30 AM SUPERVISOR DENTAL [employer]ORATORY Respiratory Rate 18 08/10/2022 10:30 AM SUPERVISOR DENT[employer]ORATORY Oxygen Saturation 97% 08/10/2022 10:30 AM SUPERVISOR DENT[employer]ORATORY Inhaled Oxygen Concentration - - Weight 86.7 kg (191 lb 3.2 oz) 08/10/2022 10:30 AM SUPERVISOR DENTAL [employer]ORATORY Height 177.8 cm (5' 10 ) 02/02/2022 10:37 AM CDT Body Mass Index 27.43 02/02/2022 10:37 AM CDT Plan of Treatment Health Maintenance Due Date Last Done Comments Depression Screening 1960 Fall Risk Assessment 1960 Hepatitis C Screening 1960 DTaP/Tdap/Td Vaccine (1 - Tdap) 1969 Hepatitis B Screening 1976 Pneumococcal vaccine 65+ (1 of 2 - PCV) 1977 Zoster Vaccine (1 of 2) 1977 Covid-19 Vaccine (3 - Modern a risk series) 11/11/2020 10/14/2020, 09/14/2020 Breast Cancer Screening-Mammogram 01/11/2022 01/11/2021, 06/10/2017, 06/06/2017 Well Visit 65+ 09/18/2023 Colon Cancer Screening-Colonoscopy 02/20/20242013, 02/19/2014 Influenza Vaccine (#1) 2024 03/01/2020 Osteoporosis Screening-Bone Density Scan 08/10/2024 08/10/2022, 05/11/2020, 09/25/2017 Colon Cancer Screening-CT Colonography Discontinued 02/19/2014, 02/19/2014 Colon Cancer Screening-DNA Stool Discontinued 02/20/20 14, 02/19/2014 Colon Cancer Screening-FIT Discontinued 02/19/2014, Colon Cancer Screening-Sigmoidoscopy Discontinued 02/05, 02/19/2014 Procedures Procedure Name Priority Date/Time Associated Diagnosis Comments DEXA AXIAL SKELETON BONE DENSITY 1 OR MORE SITES Schedule Routine, Read Routine (OP Routine) 08/10/2022 10:01 AM SUPERVISOR DENTAL LABORATORY Malignant neoplasm of overlapping sites of right breast in female, estrogen receptor positive (HCC) SCREENING MAMMOGRAM LEFT W REESE UNILATERAL ONLY Schedule Routine, Read Routine (OP Routine) 01/11/2021 10:39 AM CDT History of breast cancer COLONOSCOPY IMAGES 02/19/2014 from Last 3 Months or Most Recently Relevant to Health Maintenance Results * Dexa Axial Skeleton Bone Density 1 or 2 Site (08/10/2022 10:01 AM SUPERVISOR DENT[employer]ORATORY) Anatomical Region Laterality Modality Body N/A Radiographic Marianne ging Narrative 08/10/2022 5:50 PM SUPERVISOR DENTAL [employer]ORATORY Patient Name: Rachel Dougherty Date of : 1960 Date of scan: 08/10/2022 Bone mineral density was performed on a [employer] Discovery Densitometer. Based on machine cross-calibration and precision studies the least significant changes of this densitometer is 0.024 g/cm2 at the spine, 0.020 g/cm2 at the total proximal femur, and 0.014g/cm2 at the forearm. HISTORY: This is a 61 y.o. postmenopausal female with a history of breast cancer and osteoporosis. She reports that she quit smoking about 5 years ago. Her smoking use included cigarettes. She started smoking about 51 years ago. She smoked an average of 1.5 packs per day. She has never used smokeless tobacco. Currently on treatment with calcium, vitamin D, aromatase inhibitor, and anticoagulants and previously treated with zoledronic acid (Zometa) and denosumab (Prolia). INDICATIONS: Menopause status, treatment monitoring, aromatase inhibitor therapy, and history of osteoporosis. FINDINGS: BONE MINERAL DENSITY OF THE LUMBAR SPINE Bone Mineral Density (BMD) of the lumbar spine was measured from L1-L4 and the average density was calculated to be 1.027 gm/cm2. This corresponds to a T-score (standard deviations from the mean of young adults) of -0.2. When compared to the previous study of 05/11/2020 there has been a -0.053 gm/cm (-4.9%) decrease in bone density that is considered significant. BONE MINERAL DENSITY OF THE PROXIMAL FEMUR Bone Mineral Density (BMD) of the left hip total was found to be 0.676 gm/cm2. This corresponds to a T-score standard deviations from the mean of young adults of -2.2. Femoral neck is 0.533 gm/cm2 with a T-score (standard deviations from the mean of young adults) of -2.8. When compared to the previous study of 05/11/2020 there has been no significant changes in bone density. BONE MINERAL DENSITY OF THE FOREARM Bone Mineral density (BMD) of the left proximal 1/3 of the radius measures 0.675 gm/cm2. This corresponds to a T-score (standard deviations from the mean of young adults) of -0.3. There is no previous study available for comparison. A forearm bone density study was performed in addition to the routine study per protocol. SUMMARY: Bone mineral density shows evidence of osteoporosis and marked increase risk of fracture. There has been a significant decrease in bone density since previous measurement. ADDITIONAL COMMENTS: Postmenopausal Women and Men Over 50: Diagnostic criteria: Osteoporosis: BMD at or below -2.5 T-score; Osteopenia (low bone mass): BMD between -1.0 and -2.5 T-score. If the patient has a history of a fragility fracture, a fracture that occurred with trauma equivalent to a fall from a standing position or less, then the diagnosis is osteoporosis regardless of bone density. The history and data sections of the bone mineral density scan were prepared by Dorothy Wagner)(CBDT) who is accredited by the International Society of Clinical Densitometry. The overall patient assessment and scan interpretation were performed by Woody Lao M.D. who is certified by the International Society of Clinical Densitometry. [id number] Kelsy Garcia MD IMWilliam DXA PROCEDURES F inal Result * Screening Mammogram Left W Reese Unilateral Only (01/11/2021 10:39 AM CDT) Anatomical Region Laterality Modality Breast Left Mammography Narrative 01/12/2021 1:10 PM CDT Mammogram Technique: Left Breast Digital Breast Tomosynthesis, Unilateral C-view 2D Screening mammogram. Views obtained: left craniocaudal and left mediolateral oblique. Computer Aided Detection was performed. Mammogram Findings: The present examination has been compared to prior imaging studies performed at [facility] on 06/06/2017 and 01/16/2018. The breast is heterogeneously dense, which may obscure small masses. There is no suspicious abnormality in the left breast. Patient status post contralateral mastectomy for personal history of breast cancer. Impression: There is no mammographic evidence of malignancy. Annual screening mammography is recommended. OVERALL FINAL ASSESSMENT: BI-RADS CATEGORY 1: Negative. Procedure Note Oumou Rubio MD - 01/12/2021 Mammogram Technique: Left Breast Digital Breast Tomosynthesis, Unilateral C-view 2D Screening mammogram. Views obtained: left craniocaudal and left mediolateral oblique. Computer Aided Detection was performed. Mammogram Findings: The present examination has been compared to prior imaging studies performed at [facility] on 06/06/2017 and 01/16/2018. The breast is heterogeneously dense, which may obscure small masses. There is no suspicious abnormality in the left breast. Patient status post contralateral mastectomy for personal history ofbreast cancer. Impression: There is no mammographic evidence of malignancy. Annual screening mammography is recommended. OVERALL FINAL ASSESSMENT: BI-RADS CATEGORY 1: Negative. Kat Jean Baptiste CHAIR LIFT OPERATOR IMG MAMMO PROCEDURES Final R esult * COLONOSCOPY IMAGES (02/19/2014) Anatomical Region Laterality Modality Other Narrative 02/19/2014 Ordered by an unspecified provider. Historical Provider MD RUTLEDGE PROCEDURE ORDERABLES F inal Result from Last 3 Months or Most Recently Relevant to Health Maintenance Insurance MEDICARE [facility] Address: [address] [address] [facility] CHOICE PLUS [facility] MEDICARE IDPA MEDICARE [facility] Address: [address] [address] [place] [address] Advance Directives For more information, please contact: [phone] * Full Code (Latest Code Status on File) Date Activated Date Inactivated Comments 02/14/2018 11:28 AM 02/15/2018 3:44 PM Care Teams Psychology Department Chair Relationship Specialty Start Date End Date Khris Borden DO [address] [place] [address] PCP - General Family Medicine 04/13/20 Jacques Roman MD [address] [place] [address] Radiation Oncologist Radiation Oncology 03/14/18 Quinten Medina MD [address] [place] [address] Surgeon Surgical Oncology 03/14/18 Josie Mauro, PhD [address] [facility] [address] [place] [address] Nurse Practitioner Radiation Oncology 03/14/18 Kelsy Garcia MD [address] [facility] DIV MEDICAL ONCOLOGY, [address] [place] [address] Medical Oncologist/Head Of Training And Development Medical Oncology 04/17/21 Kat Jean Baptiste, CHAIR LIFT OPERATOR [address] [facility] DIV MEDICAL ONCOLOGY, [address] [place] [address] Nurse Practitioner Certified Clinical Nurse Specialist 04/17/21
--- OUTSIDE RECORDS SUMMARY | 2024-09-15 16:56 | XMS_ITS | Encounter Summary ---
Author Organization [facility] Address [address] [place] [address] Care Team Providers Care Warranty Administrator Name Role Phone Unavailable Primary Care Provider Unavailabl e Encounter Details Date Type Department Care Team (Late st Contact Info) Description 05/31/1999 Outpatient Historical [facility] Amari Miller MD Social History Tobacco Use Types Packs/Day Years Used Date Smoking Tobacco: Never Assessed Comments Unknown Sex and Gender Information Value Date Recorded Sex Assigned at Not on file Legal Sex Female 4:44 AM POLISHER AND SANDER Gender Identity Not on file Sexual Orientation Not on file documented as of this encounter Plan of Treatment Not on file documented as of this encounter Visit Diagnoses Not on filedocumented in this encounter
--- OUTSIDE RECORDS SUMMARY | 2024-09-15 16:56 | XMS_ITS ---
Author Organization [facility] Address [address] [place] [phone] Care Team Providers Care Sagger Filler Name Role Phone Jacques Roman MD Unavailable Quinten Medina MD Unavailable [phone] Josie Mauro PhD Unavailable [phone] Khris Borden DO Primary Care Provider Kelsy Garcia MD Unavailable [phone] Kat Jean Baptiste INSURANCE SOLICITOR Unavailable [phone] Active Problems Problem Noted Date Diagnosed Date [...] 05/23/2017:Stage IB(cT2(2), cN0, cM0, G2, ER: Positive, LA: Positive, HER2: Negative) - Signed by Jacques Roman MD on 03/17/2018 Pathologic stage from 02/14/2018:No Stage Recommended(ypT1c(2), pNX, cM0, G1, ER: Positive, LA: Negative, HER2: Negative, Oncotype DX score: 11) - Signed by Jacques Roman MD on 03/17/2018 Side effects of treatment Current Treatment and Therapy Plans No current plan information found. Past Treatment and Therapy Plans Specialty Infusion Treatment Plan Name Start Date Discontinue Date Treatment Medications Discontinue Reason Plan Provider DENOSUMAB (PROLIA) INJECTION 04/23/2018 04/12/2020 No medications scheduled. Provider Discretion Navid Hicks MD Radiation Treatments * Course C1 RCW 201705/13/2018 - 07/10/2018 Treatment Period Energy Fraction Dose Fractions Total Dose Plans Planned RT CW BOOST 06/24/2018 - 07/10/2018 200 8 / 1,600 RT CW_LNs 05/13/2018 - 06/23/2018 180 28 / 5,040 Reference Points Delivered PTV_BOOST 06/24/2018 - 07/10/2018 1,600 RT CW_LNs 05/13/2018 - 06/23/2018 5,040 Lifetime Dose Tracking * Chemical Lifetime Dose Automatic Entry Manual Entr y DLP 2,660 mGycm 2,660 mGycm 0 mGycm
--- OUTSIDE RECORDS SUMMARY | 2024-09-15 16:56 | XMS_ITS | Referral Summary ---
Author Organization [facility] Address [address] [place] [id number] Care Team Providers Care Nozzleman Name Role Phone Jacques Roman MD Unavailable Quinten Medina MD Unavailable [phone] Josie Maruo PhD Unavailable [phone] Khris Borden DO Primary Care Provider Kelsy Garcia MD Unavailable [phone] Kat Jean Baptiste Unavailable [phone] Allergies No known active allergies Medications PROAIR [...] 7 DAYS 0 9 Active OPTICHAMBER [facility] spacer USE DIRECTED WITH PROAIR. 3 [...] 05/23/2017:Stage IB(cT2(2), cN0, cM0, G2, ER: Positive, PA: Positive, HER2: Negative) - Signed by Jacques Roman MD on 03/17/2018 Pathologic stage from 02/14/2018:No Stage Recommended(ypT1c(2), pNX, cM0, G1, ER: Positive, PA: Negative, HER2: Negative, Oncotype DX score: 11) - Signed by Jaqcues Roman MD on 03/17/2018 Side effects of treatment Immunizations Immunization Administration Dates Next Due Influenza, Quadrivalent, Carly l Culture-based MDCK, Preservative Free, Antibiotic Free, Intramuscular 03/01/2020 Moderna SARS-CoV-2 Monovalent Vaccination (12+ Y RS) 10/14/2020,09/14/2020 Social History Tobacco Use Types Packs/Day Years Used Date Smoking Tobacco: Former Cigarettes 1.5 45.8 1 972 - 05/2017 Smokeless Tobacco: Never Tobacco Cessation:Counseling Given: No Alcohol Use Standard Drinks/Week Comments No 0 (1 standard drink = 0.6 oz pur e alcohol) Comments No Sex and Gender Information Value Date Recorded Sex Assigned at Not on file Legal Sex Female 6:48 PM PACKAGING DESIGN ENGINEER Gender Identity Not on file Sexual Orientation Not on file 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 Not on file Not on file Not on file Last Filed Vital Signs Vital Sign Reading Time Taken Comments Blood Pressure 132/87 08/10/2022 10:30 AM PACKAGING DESIGN ENGINEER Pulse 109 08/10/2022 10:30 AM PACKAGING DESIGN ENGINEER Temperature 36.3 C (97.4 F) 08/10/2022 10:30 AM PACKAGING DESIGN ENGINEER Respiratory Rate 18 08/10/2022 10:30 AM PACKAGING DESIGN ENGINEER Oxygen Saturation 97% 08/10/2022 10:30 AM PACKAGING DESIGN ENGINEER Inhaled Oxygen Concentration - - Weight 86.7 kg (191 lb 3.2 oz) 08/10/2022 10:30 AM PACKAGING DESIGN ENGINEER Height 177.8 cm (5' 10 ) 02/02/2022 10:37 AM CDT Body Mass Index 27.43 02/02/2022 10:37 AM CDT Plan of Treatment Not on file Procedures Procedure Name Priority Date/Time Associated Diagnosis Comments DEXA AXIAL SKELETON BONE DENSITY 1 OR MORE SITES Schedule Routine, Read Routine (OP Routine) 08/10/2022 10:01 AM PACKAGING DESIGN ENGINEER Malignant neoplasm of overlapping sites of right breast in female, estrogen receptor positive (HCC) SCREENING MAMMOGRAM LEFT W NAWAF UNILATERAL ONLY Schedule Routine, Read Routine (OP Routine) 01/11/2021 10:39 AM CDT History of breast cancer COLONOSCOPY IMAGES 02/19/2014 from Last 3 Months or Most Recently Relevant to Health Maintenance Results * Dexa Axial Skeleton Bone Density 1 or 2 Site (08/10/2022 10:01 AM PACKAGING DESIGN ENGINEER) Anatomical Region Laterality Modality Body N/A Radiographic Marianne ging Narrative 08/10/2022 5:50 PM PACKAGING DESIGN ENGINEER Patient Name: Kobi Dougherty Date of : 1960 Date of scan: 08/10/2022 Bone mineral density was performed on a [employer] Discovery Densitometer. Based on machine cross-calibration and [...] mineral density scan were prepared by Dorothy Lang (R)([facility]) who is accredited by the International Society of Clinical Densitometry. The overall patient assessment and scan interpretation were performed by Woody Lao M.D. who is certified by the International Society of Clinical Densitometry. [id number] us Kelsy MORAN DXA PROCEDURES F inal Result * Screening Mammogram Left W Nawaf Unilateral Only (01/11/2021 10:39 AM CDT) Anatomical Region Laterality Modality Breast Left Mammography Narrative 01/12/2021 1:10 PM CDT Mammogram Technique: Left Breast Digital Breast Tomosynthesis, Unilateral C-view 2D Screening mammogram. Views obtained: left craniocaudal and left mediolateral oblique. Computer Aided Detection was performed. Mammogram Findings: The present examination has been compared to prior imaging studies performed at [facility] on 06/06/2017 and 01/16/2018. The breast is [...] compared to prior imaging studies performed at [facility] on 06/06/2017 and 01/16/2018. The breast is heterogeneously dense, which may obscure small masses. There is no suspicious abnormality in the left breast. Patient status post contralateral mastectomy for personal history ofbreast cancer. Impression: There is no mammographic evidence of malignancy. Annual screening mammography is recommended. OVERALL FINAL ASSESSMENT: BI-RADS CATEGORY 1: Negative. Kat Jean Baptiste CHEMICAL PLANT WORKER IMG MAMMO PROCEDURES Final R esult * COLONOSCOPY IMAGES (02/19/2014) Anatomical Region Laterality Modality Other Narrative 02/19/2014 Ordered by an unspecified provider. Historical Provider MD RUTLEDGE PROCEDURE ORDERABLES F inal Result from Last 3 Months or Most Recently Relevant to Health Maintenance Insurance MEDICARE IDPA [facility] CHOICE PLUS [facility] H[facility]/PPO Address: [address] [address] [place] [address] [facility] MEDICARE [place] MEDICARE Advance Directives For more information, please contact: [phone] * Full Code (Latest Code Status on File) Date Activated Date Inactivated Comments 02/14/2018 11:28 AM 02/15/2018 3:44 PM Care Teams Nozzleman Relationship Specialty Start Date End Date Khris Borden DO [address] [place] [address] PCP - General Family Medicine 04/13/20 Jacques Roman MD [address] [facility] [address] [place] [address] Radiation Oncologist Radiation Oncology 03/14/18 Quinten Medina MD [address] [address] Surgeon Surgical Oncology 03/14/18 Josie Mauro, PhD [address] [facility] [address] [address] Nurse Practitioner Radiation Oncology 03/14/18 Kelsy Garcia MD [address] DIV MEDICAL ONCOLOGY, [facility] [address] [place] [address] Medical Oncologist/Experimental Assembler Medical Oncology 04/17/21 Kat Jean Baptiste, CHEMICAL PLANT WORKER [address] DIV IM MEDICAL ONCOLOGY, [address] [place] [address] Nurse Practitioner Certified Clinical Nurse Specialist 04/17/21
--- OUTSIDE RECORDS SUMMARY | 2024-09-15 16:56 | XMS_ITS | Encounter Summary ---
Author Organization [facility] Address [address] [place] [address] Phone Care Team Providers Care Alumni Relations Manager Name Role Phone Jacques Roman MD Unavailable Quinten Medina MD Unavailable [phone] Josie Mauro PhD Unavailable [phone] Navid Hicks MD Unavailable Khris Borden DO Primary Care Provider Kelsy Garcia MD Unavailable [phone] Kat Jean Baptiste Unavailable [phone] Encounter Details Date Type Department Care Team (Late st Contact Info) Description 10/05/2020 Orders Only [facility] Oncology [address] Advanced Medicine 7th [place] [address] [place] [id number] Chinyere Salazar, BRIGHT Social History Tobacco Use Types Packs/Day Years Used Date Smoking Tobacco: Former Cigarettes 1.5 45.8 1 97 - 05/2017 Smokeless Tobacco: Never Alcohol Use Standard Drinks/Week Comments No 0 (1 standard drink = 0.6 oz pur e alcohol) Comments No Sex and Gender Information Value Date Recorded Sex Assigned at Not on file Legal Sex Female 6:48 PM TIME BUYER Gender Identity Not on file Sexual Orientation Not on file 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 Not on file Not on file documented as of this encounter Plan of Treatment Not on file documented as of this encounter Visit Diagnoses Not on filedocumented in this encounter Care Teams Alumni Relations Manager Relationship Specialty Start Date End Date MinnieKhris camacho HayesDO [address] [place] [address] PCP - General Family Medicine 04/13/20 Jacques Roman MD [address] [place] [address] Radiation Oncologist Radiation Oncology 03/14/18 Quinten Medina MD [address] [address] Surgeon Surgical Oncology 03/14/18 Josie Mauro, PhD [address] [address] Nurse Practitioner Radiation Oncology 03/14/18 Navid Hicks MD [address] [address] Medical Oncologist/Supervisor Air Conditioning Installer Medical Oncology 03/14/18 04/16/21 Kelsy Garcia MD [address] DIV IM MEDICAL ONCOLOGY, [address] [place] [address] Medical Oncologist/Supervisor Air Conditioning Installer Medical Oncology 04/17/21 Kat Jean Baptiste CNS [address] DIV IM MEDICAL ONCOLOGY, [address] [place] [address] Nurse Practitioner Certified Clinical Nurse Specialist 04/17/21 documented as of this encounter
--- OUTSIDE RECORDS SUMMARY | 2024-09-15 16:56 | XMS_ITS | Encounter Summary ---
Author Organization [employer] Address [address] [place] [address] Care Team Providers Care Motel Food Service Supervisor Name Role Phone Unavailable Primary Care Provider Unavailabl e Encounter Details Date Type Department Care Team (Late st Contact Info) Description 06/15/1999 Outpatient Historical [facility] Amari Miller MD Social History Tobacco Use Types Packs/Day Years Used Date Smoking Tobacco: Never Assessed Comments Unknown Sex and Gender Information Value Date Recorded Sex Assigned at Not on file Legal Sex Female 4:44 AM PAPER PLATE MACHINE TENDER Gender Identity Not on file Sexual Orientation Not on file documented as of this encounter Plan of Treatment Not on file documented as of this encounter Visit Diagnoses Not on filedocumented in this encounter
--- OUTSIDE RECORDS SUMMARY | 2024-09-15 16:56 | XMS_ITS | Clinical Summary ---
Author Organization [facility] Address [address] [place] [address] Care Team Providers Care Executor Of Estate Name Role Phone Unavailable Primary Care Provider Unavailabl e Social History Tobacco Use Types Packs/Day Years Used Date Smoking Tobacco: Never Assessed Comments Unknown Sex and Gender Information Value Date Recorded Sex Assigned at Not on file Legal Sex Female 9:59 PM CDT Gender Identity Not on file Sexual Orientation Not on file Last Filed Vital Signs Vital Sign Reading Time Taken Comments Blood Pressure 114/78 05/10/2015 9:25 AM LINE TENDER Pulse 72 05/10/2015 9:25 AM LINE TENDER Temperature - - Respiratory Rate - - Oxygen Saturation - - Inhaled Oxygen Concentration - - Weight 61.2 kg (135 lb) 05/10/2015 9:25 AM LINE TENDER Height 177.8 cm (5' 10 ) 05/10/2015 9:25 AM LINE TENDER Body Mass Index 19.37 05/10/2015 9:25 AM LINE TENDER Plan of Treatment Health Maintenance Due Date Last Done Comments Colorectal Cancer Screening Colonoscopy (10 Years) 1958 Hepatitis C 1976 DTaP, Tdap and Td Vaccines ( 1 - Tdap) 1977 Mammogram Screening 1998 Zoster Vaccines (1 of 2) 2008 Dexa Scan (General) 09/18/2023 Pneumococcal Vaccine: 65+ Ye ars (1 of 1 - PCV) 09/18/2023 1958 COVID-19 Vaccine ( - 2023-2 5 season) 2024 Influenza Adult (#1) 2024 04/22/2015 RSV Immunization or 60+ Years (1 - 1-dose 75+ series) 2033 Pneumococcal Vaccine: Pediat rics (0 to 5 Years) and At-Risk Patients (6 to 64 Years) Aged Out 1960 No longer eligi ble based on patient's age to complete this topic Meningococcal B Vaccine Aged Out No l onger eligible based on patient's age to complete this topic Meningococcal Vaccine Aged Out No luisa kristen eligible based on patient's age to complete this topic RSV Immunizations Under 20 Months Aged Out No longer eligible based on patient's age to complete this topic
--- OUTSIDE RECORDS SUMMARY | 2024-09-15 16:56 | XMS_ITS | Clinical Summary ---
Author Organization [employer] Address [address] [facility] [address] [facility] Attn: Epic Prelude ADT [place] [address] Care Team Providers Care Database Analyst Name Role Phone Unavailable Primary Care Provider Unavailabl e Social History Tobacco Use Types Packs/Day Years Used Date Smoking Tobacco: Never Assessed Comments Unknown Sex and Gender Information Value Date Recorded Sex Assigned at Not on file Legal Sex Female 4:44 AM STRETCHER LEVELER OPERATOR HELPER Gender Identity Not on file Sexual Orientation Not on file Plan of Treatment Health Maintenance Due Date Last Done Comments DTAP/TDAP/TD VACCINES (1 - Tdap) 1977 BREAST CANCER SCREENING 1998 COLORECTAL SCREENING 09/18/2003 Colorectal Cancer Screening 09/18/2003 FIT-DNA Q 3 years 09/18/2003 FIT/FOBT Q 1 year 09/18/2003 Flex Sig/CT Colonography Q 5 years 09/18/2003 PNEUMOCOCCAL VACCINE 50+ YEARS (1 of 1 - PCV) 09/18/19 09 ZOSTER VACCINE (1 of 2) 2008 OSTEOPOROSIS SCREENING 09/18/2023 INFLUENZA VACCINE (#1) 2024 RSV VACCINE (60+ or ) (1 - 1-dose 75+ series) 2033
--- NOTE | 2024-09-15 17:24 | PC.NURSE ---
PT HAS BEEN PLACED BACK ON 6L O2 TO EAT. DINNER TRAY HAS BEEN PROVIDED. WILL CONTINUE TO MONITOR.
[2024-09-15 17:40] LABS: Add Urine Microscopic? YES; Appearance Urine Cloudy (Clear); Bilirubin Urine Negative (Negative); Blood Urine Negative (Negative); Color Urine Light Yellow (Yellow); Glucose Urine UA Negative (Negative); Ketones Urine Negative (Negative); Leukocyte Esterase Ur Negative LEU/UL (Negative); Nitrate Urine Positive (Negative); Protein Urine Negative (Negative); Specific Grav Ur 1.025 (1.010-1.020); Urobilinogen Urine 0.2 mg/dL (0.2-1.0)
[2024-09-15 17:43] LABS: RBC Urine 0-2 /hpf (0-2); Squamous Epithelial Cell Urine Few /hpf (Few)
[2024-09-15 17:44] LABS: Bacteria Urine 3+ /hpf
--- NOTE | 2024-09-15 18:17 | PC.NURSE ---
PT DECLINES BEING PLACED BACK ON BIPAP, STATES SHE IS DOING FINE WITH HER NASAL CANNULA AT 6L. NAD NOTED. PT COMPLETED DINNER, AWAITING FURTHER ORDERS. WILL CONTINUE TO MONITOR.
--- NOTE | 2024-09-15 18:41 | PC.NURSE ---
[facility] HAS SPOKEN WITH PT, SHE IS TO BE ADMITTED TO [facility] FOR FURTHER CARE. PT AND FAMILY ARE AWARE OF PLAN OF CARE, AWAITING ORDERS AT THIS TIME. NAD NOTED. VSS. WILL CONTINUE TO MONITOR.
--- NOTE | 2024-09-15 19:01 | PC.NURSE ---
Waiting for 2nd floor shift change before calling for bed.
--- NOTE | 2024-09-15 19:06 | PC.NURSE ---
REPORT TO BRIGHT SILVERIO, PT IS AWAITING ADMISSION
[2024-09-15] MEDS: methylPREDNISolone SOD SUCC 125 MG VIAL 62.5 MG IV PUSH (19:22)
[2024-09-15] MEDS: levoFLOXacin 750 MG/D5W 150 ML 750 MG/150 ML BAG 100 MG IVPB (19:25)
--- NOTE | 2024-09-15 19:45 | PC.NURSE ---
ERP aware of pt's vitals. No new orders.
[2024-09-15] MEDS: SODIUM CHLORIDE 0.9% IV 1,000 ML 100 ML IV CONT (21:08)
--- NOTE | 2024-09-15 21:15 | PC.NURSE ---
[facility] 2nd floor RN Mouna called and asked why pt was being admitted. Said that she is busy and asked if this RN would give pt all her meds and check her blood sugar before tech brings her up.
[2024-09-15 21:34] LABS: Glucose Point of Care 97 mg/dl (65-105)
[2024-09-15] MEDS: ACETAMINOPHEN 325 MG TABLET 650 MG PO (23:30)
--- NOTE | 2024-09-15 23:47 | ADMGEN ---
This patient, Rachel Farnsworth, was admitted to 2nd Floor Room 208-1. Patient/family oriented to hospital policies and general routines including ID bracelet, bed and alarms, pain management, procedures, bathroom and other care routines, personal items, smoking policy, room service/diet, and visiting hours. Information on how to activate the Rapid Response Team has been discussed. Patient/Family are encouraged to report perceived risks to care and to ask questions if they do not understand what they are told or what they should do.
[2024-09-16] VITALS (12 sets, daily range): BP systolic 103–104; BP diastolic 57–67; PULSE 60–91; RESP 16–20; TEMP 35.9–36.1; O2SAT 94–100
[2024-09-16] MEDS: IPRATROPIUM 0.5 MG/ALBUTEROL SULFATE 2.5 MG AMPUL.NEB 3 ML INHALATION ×4 (00:34→16:43)
[2024-09-16] MEDS: methylPREDNISolone SOD SUCC 125 MG VIAL 62.5 MG IV PUSH (02:57)
[2024-09-16] MEDS: SODIUM CHLORIDE 0.9% IV 1,000 ML 100 ML IV CONT ×2 (06:33→19:54)
[2024-09-16 08:00] LABS: Base Excess ABG 17.5 mmol/L (0-2); HCO3 ABG 46.4 mmol/L (23-29); Oxygen Saturation ABG 98.1 % (95-97); Oxyhemoglobin 97.2 % (94-100); PO2 ABG 130.8 mmHg (80-90); pH ABG 7.34 (7.35-7.45)
[2024-09-16 08:02] LABS: Device NASAL CANNULA; Modified Allen's Test Pass; PCO2 ABG 88.2 mmHg (35-45); Site Drawn RIGHT RADIAL
--- NOTE | 2024-09-16 08:04 | PC.NURSE ---
BAGGAGE CHECKER aware of Critical PCO2.
[2024-09-16 09:13] LABS: Hematocrit 31.3 % (35.0-42.0); Hemoglobin 8.9 g/dL (11.7-13.8); Immature Platelet Fraction Pct 6.5 % (1.0-7.0); Mean Corpuscular HGB Conc 28.4 g/dL (32-36); Mean Corpuscular Hemoglobin 29.9 pg (27.0-31.0); Mean Platelet Volume 10.1 fl (9.2-11.8); Platelet Count Result 138 K/mm3 (150-420); Red Blood Count 2.98 M/mm3 (4.20-5.40); Red Cell Distribution Width 12.4 % (11.6-14.4); White Blood Count 4.7 K/mm3 (4.8-10.8)
[2024-09-16 09:34] LABS: Alanine Aminotransferase 25 U/L (14-59); Albumin Level 2.9 g/dL (3.4-5.0); Alkaline Phosphatase 53 U/L (46-116); Anion Gap -2 mmol/L (4-12); Aspartate Amino Transferase 12 U/L (15-37); Bilirubin,Total 0.1 mg/dL (0.00-1.00); Blood Urea Nitrogen 17 mg/dL (7-18); Calcium 8.8 mg/dL (8.5-10.1); Carbon Dioxide 45 mmol/L (21-32); Chloride 100 mmol/L (98-108); Estimated CRCL calculation 69 ml/min; Estimated Glomerular Filt Rate > 60; Glucose 243 mg/dL (70-99); Osmolality Calculated 305 mOsm/kg (285-295); Potassium 4.5 mmol/L (3.5-5.1); Sodium 143 mmol/L (136-145)
[2024-09-16] MEDS: CIPROFLOXACIN 400 MG/D5W 200ML 200 ML 200 MG IVPB ×2 (09:47→17:57)
[2024-09-16] MEDS: guaiFENesin 12 HR 600 MG TABCR 1200 MG PO ×2 (09:47→20:10)
--- NOTE | 2024-09-16 12:47 | P.HP_ITS ---
H&P: HPI History of Present Illness Date/Time: 09/16/24 12:47 Chief Complaint: SOB/AMS Narrative: Patient is a 63-year-old female who presented to the emergency department via EMS after she was at her primary care physician's office for follow-up appointment at which time it patient became confused and fell she was found by staff and EMS was called. patient has a known past medical history of acute respiratory failure secondary to COPD and is on chronic 5 L supplemental oxygen at home as well as uses a NIV. upon EMS arrival patient was found to be in acute respiratory distress with hypoxia with reported oxygen saturations at 45% per reports patient's oxygen tank was empty when EMS arrived. patient states she does not recall most of the events intl arrival to the emergency department is not believe she was completely unconscious or hit her head. in the emergency department patient was placed back on her normal 5 L of supplemental oxygen in an ABG showed acute respiratory failure with hypoxia and hypercapnia with a pCO2 of [address] patient on BiPAP in patient recovered quickly. Patient was then admitted to the medical unit for further evaluation and treatment of acute respiratory failure with hypoxia and hypercapnia. CT head was negative for any acute findings labs reviewed and unremarkable except for her UA which was suspicious for urinary tract infection. Patient was initially started on azithromycin and Levaquin in the emergency department however after review of patient's previous UA she had E coli which was resistant to Levaquin and she was transition to IV Cipro for previous culture sensitivity. upon assessment patient denied any chest pain, nausea, vomiting, dizziness but still endorsed shortness of breath and moderate nonproductive cough. viral panel in the emergency department was negative for COVID/ influenza/ RSV. Review of Systems Review of Systems: All systems reviewed & are unremarkable except as noted in HPI and below PMFSH Past Medical History Medical History Ileus, unspecified Duodenal diverticulum Intermittent diarrhea Belching Upper abdominal pain Abdominal distension History of DVT (deep vein thrombosis) Breast cancer Right Breast Removed. SP Chemo. Completed Radiation 1--19. Underweight Depression COPD (chronic obstructive pulmonary disease) Surgical History Surgical History History of repair of rotator cuff Right Shoulder History of hysterectomy History of cholecystectomy Family History Family History Other Diabetes mellitus Social History Social History Smoking packs per day: 1 Smoking cigarettes per day: 20.0 Years smoked: 40 Smoking pack-years: 40.00 Smoking status: Former smoker Tobacco type: cigarettes Alcohol intake: former Drinks per week: 0 Substance use: never Substance use type: does not use Do You Feel Safe in your Home?: Yes Lack of Transportation: No Lack of Food: Never True Current Housing: I Have Housing Concerned About Future Housing: No Difficulty Paying Gas/Electric Bills: No Difficulty Paying for Meds: No Currently Unemployed: No Education: Grade School Difficulty w/ Childcare or Family Care: No Living arrangements: alone Occupation/Education: occupation Additional occupation/education comments: Employed at [employer] Gender identity (if verbalized by the patient): Female Sexual Orientation (if Verbalized by the Patient): Straight or Heterosexual Spiritual care concerns: No Meds Home Medications and Allergies Home Medications ?Medication ?Instructions ?Recorded ?Confirmed ?Type omeprazole 40 mg capsule,delayed See Rx Instructions .Route 01/02/24 09/15/24 Rx release .COMPLEX #180 caps Yupelri 175 mcg/3 mL solution for See Rx Instructions .Route 05/18/24 09/15/24 Rx nebulization (revefenacin) .COMPLEX #90 mL albuterol sulfate 2.5 mg/3 mL 2.5 mg (3 mL) inhalation DAILY PRN 05/18/24 09/15/24 Rx (0.083 %) solution for nebulization shortness of breath or wheezing #90 mL budesonide 0.5 mg/2 mL suspension See Rx Instructions .Route 05/18/24 09/15/24 Rx for nebulization .COMPLEX #60 ea ensifentrine 3 mg/2.5 mL 2.5 ml inhalation QAM AND QPM 05/18/24 09/15/24 History suspension for nebulization (Ohtuvayre) formoterol fumarate 20 mcg/2 mL See Rx Instructions .Route 05/18/24 09/15/24 Rx solution for nebulization .COMPLEX #60 ea (Perforomist) lisinopril 10 mg tablet See Rx Instructions .Route 07/06/24 09/15/24 Rx .COMPLEX #90 tabs fluticasone propionate 50 1 spray intranasal DAILY #48 mL 07/23/24 09/15/24 Rx mcg/actuation nasal spray,suspension (Allergy Relief (fluticasone)) prednisone 10 mg tablet 10 mg PO DAILY #90 tabs 08/21/24 09/15/24 Rx levofloxacin 750 mg tablet 750 mg PO DAILY #6 tabs 09/15/24 Rx prednisone 20 mg tablet 40 mg (2 x 20 mg) PO DAILY 5 days 09/15/24 Rx #10 tabs Allergies Allergy/AdvReac Type Severity Reaction Status Date / Time No Known Allergies Allergy Unknown Verified 09/15/24 15:09 Vital Signs Vital Signs - 24 hr 09/15/24 14:51 09/15/24 14:52 09/15/24 15:05 Temperature 97.7 F Pulse Rate 105 H 105 H Respiratory Rate 18 18 Blood Pressure 123/67 Pulse Oximetry 94 94 Oxygen Delivery Nasal Cannula Room Air Nasal Cannula Oxygen Flow Rate 5 6 09/15/24 15:45 09/15/24 15:45 09/15/24 15:51 Temperature Pulse Rate 100 101 H 100 Respiratory Rate 20 16 20 Blood Pressure 99/57 L Pulse Oximetry 95 98 100 Oxygen Delivery Oxygen Flow Rate 09/15/24 16:00 09/15/24 16:39 09/15/24 16:40 Temperature Pulse Rate 101 H 84 86 Respiratory Rate 21 H 23 H Blood Pressure 105/60 107/56 L Pulse Oximetry 87 L 100 100 Oxygen Delivery BiPAP BiPAP Oxygen Flow Rate 09/15/24 16:45 09/15/24 16:46 09/15/24 17:00 Temperature Pulse Rate 85 102 H 80 Respiratory Rate Blood Pressure 109/56 L 98/53 L Pulse Oximetry 100 100 Oxygen Delivery BiPAP Oxygen Flow Rate 6 6 09/15/24 17:16 09/15/24 17:34 09/15/24 18:15 Temperature Pulse Rate 85 102 H 86 Respiratory Rate Blood Pressure Pulse Oximetry 100 Oxygen Delivery Oxygen Flow Rate 6 6 6 09/15/24 18:30 09/15/24 18:45 09/15/24 18:46 Temperature Pulse Rate 88 89 88 Respiratory Rate Blood Pressure 109/68 Pulse Oximetry 100 99 100 Oxygen Delivery Oxygen Flow Rate 6 6 6 09/15/24 19:00 09/15/24 19:15 09/15/24 19:30 Temperature Pulse Rate 89 88 87 Respiratory Rate Blood Pressure 94/83 L 94/74 L Pulse Oximetry 100 100 99 Oxygen Delivery Oxygen Flow Rate 6 6 6 09/15/24 20:00 09/15/24 20:30 09/15/24 20:45 Temperature Pulse Rate 83 82 Respiratory Rate Blood Pressure Pulse Oximetry 100 99 Oxygen Delivery Oxygen Flow Rate 6 6 09/15/24 21:01 09/15/24 21:30 09/15/24 22:00 Temperature Pulse Rate Respiratory Rate Blood Pressure Pulse Oximetry 100 100 96 Oxygen Delivery Oxygen Flow Rate 6 6 6 09/15/24 22:05 09/15/24 22:45 09/16/24 00:30 Temperature 97.4 F L Pulse Rate 95 97 74 Respiratory Rate 16 16 16 Blood Pressure 128/69 Pulse Oximetry 96 95 99 Oxygen Delivery Nasal Cannula Nasal Cannula Oxygen Flow Rate 6 6 6 09/16/24 00:50 09/16/24 05:36 09/16/24 05:47 Temperature Pulse Rate 80 60 64 Respiratory Rate 16 18 18 Blood Pressure Pulse Oximetry 100 97 99 Oxygen Delivery Oxygen Flow Rate 6 6 6 09/16/24 10:59 09/16/24 11:45 09/16/24 11:56 Temperature Pulse Rate 68 91 88 Respiratory Rate 18 20 20 Blood Pressure Pulse Oximetry 94 96 98 Oxygen Delivery BiPAP Oxygen Flow Rate Exam Narrative: * GENERAL: Alert and oriented x 3. No acute distress. * EYES: PERRLA. * HEENT: Moist mucous membranes. * LUNGS: Wheezing throughout and diminished lung pacheco bLL to auscultation Tachypnea and accessory muscle use. * CARDIOVASCULAR: Regular rate and rhythm. No murmur. No JVD. S1-S2 * ABDOMEN: Soft, non tenderness and non-distended. No palpable masses. * EXTREMITIES: No edema. Non-tender * SKIN: No rashes or lesions. Skin warm, dry. * NEUROLOGIC: No focal neurological deficits. CN II-XII grossly intact * PSYCHIATRIC: Appropriate mood and affect. Good judgement and insight. H&P: Results Labs Labs: Short CBC 09/15/24 09/16/24 Range/Units 15:41 09:06 WBC 6.4 4.7 L (4.8-10.8) K/mm3 Hgb 10.5 L 8.9 L (11.7-13.8) g/dL Hct 37.4 31.3 L (35.0-42.0) % Plt Count 159 138 L (150-420) K/mm3 BMP 09/15/24 09/16/24 15:41 09:06 Sodium 144 143 Potassium 4.4 4.5 Chloride 99 100 Carbon Dioxide > 45 H 45 H BUN 19 H 17 Creatinine 0.63 0.76 Glucose 197 H 243 H Calcium 9.6 8.8 Cardiac Enzymes 09/15/24 Range/Units 15:41 Troponin I 8.5 (0.00-60.4) ng/L Liver Function 09/15/24 09/16/24 Range/Units 15:41 09:06 Total Bilirubin 0.2 0.1 (0.00-1.00) mg/dL AST 12 L 12 L (15-37) U/L ALT 36 25 (14-59) U/L Alkaline Phosphatase 63 53 (46-116) U/L Albumin 3.3 L 2.9 L (3.4-5.0) g/dL Urine 09/15/24 Range/Units 17:30 Urine Color Light yellow (Yellow) Urine Appearance Cloudy A (Clear) Urine pH 6.0 (5.0-8.0) Ur Specific Norco 1.025 H (1.010-1.020) Urine Protein Negative (Negative) Urine Glucose (UA) Negative (Negative) Assessment and Plan Assessment and plan (1) Acute respiratory failure with hypoxia and hypercarbia: Code(s): J96.01 - Acute respiratory failure with hypoxia; J96.02 - Acute respiratory fail ure with hypercapnia Status: Acute Assessment and Plan: Patient With significant history of COPD currently wears 5 L at home as well as has a noninvasive ventilator patient reports she has been compliant with her NIV but per reports her oxygen tank was out of oxygen. * ABG: PH: 7.34/pCO2 99.1/pO2 74.1 * Bipap PRN as tolerated: 06/12 rate 16 FIO2 50 * Bronchodilators. * Chest x-ray reviewed/ CT scan noted pulmonary nodule * incentive spirometry while awake. * steroids initiated * azithromycin 500 x 1 day/250 daily/cipro IV * supplemental oxygen therapy to maintain oxygen 92% wears 5 L at home and NIV * guaifenesin * Follow-up with mannequin sander and finisher as an outpatient (2) COPD exacerbation: Code(s): J44.1 - Chronic obstructive pulmonary disease with (acute) exacerbation Status: Acute Assessment and Plan: SEE ABOVE #1 (3) Lung nodule: Code(s): R91.1 - Solitary pulmonary nodule Status: Acute Assessment and Plan: * 7 mm pulmonary nodule suspicious for primary bronchogenic carcinoma * Patient will need F/U CT scan in 3 months for further evaluation (4) Fall: Code(s): W19.XXXA - Unspecified fall, initial encounter Status: Acute Assessment and Plan: * Secondary to above * PT/OT (5) Urinary tract infection: Code(s): N39.0 - Urinary tract infection, site not specified Status: Acute Assessment and Plan: * Previous UTI 07/27 ECOLI susceptible to ciprofloxacin * UA nitrate +,with bacteria, and WBC * Started on IV cipro pending cultures Plan Code status: Full code per patient DVT prophylaxis: Lovenox Stress ulcer prophylaxis: Protonix 40 daily PT/OT notes: Disposition: Patient continues admission for acute respiratory failure with hypoxia and hypercapnia will continue with BiPAP as tolerated may remove with meals plan for continued overnight stay can hopefully discharge home tomorrow if respiratory status improved. Patient already has oxygen at home as well as NIV. Quality VTE Prophylaxis VTE prophylaxis: pharmacologic ordered -Patient's previous records reviewed on admission -ER notes reviewed in detail on admission -discussed all findings and current treatment plan with patient/Family/POA -Consultations reviewed for recommendations -Patient's disposition for safe discharge discussed with pillowcase turner Dictation performed by [employer] direct speech recognition software, therefore lodge officer variants and typographical errors may occur. Hospitalist MIPS Advance Care Plan I have confirmed that the patient's Advanced Care Plan is present, code status is documented, or surrogate decision maker is listed in patient medical record.: Yes Medication Reconciliation I have utilized all available resources to obtain, update and review the patients current medications (includes all prescriptions, OTC, herbals, cannabis, and nutritional supplements).: Yes The patient is not eligible for med reconciliation; the patient is in a emergent medical situation where delaying treatment would jeopardize the patients health.: No
[2024-09-16] MEDS: methylPREDNISolone SOD SUCC 125 MG VIAL 60 MG IV PUSH ×2 (14:10→22:17)
[2024-09-16] MEDS: ACETAMINOPHEN 325 MG TABLET 650 MG PO (18:03)
[2024-09-16] MEDS: LORATADINE 10 MG TABLET PO (20:10)
[2024-09-17] VITALS (8 sets, daily range): BP systolic 117–141; BP diastolic 69–82; PULSE 61–85; RESP 16–19; TEMP 36.3; O2SAT 91–100
[2024-09-17] MEDS: CIPROFLOXACIN 400 MG/D5W 200ML 200 ML 200 MG IVPB ×2 (00:20→09:28)
[2024-09-17] MEDS: IPRATROPIUM 0.5 MG/ALBUTEROL SULFATE 2.5 MG AMPUL.NEB 3 ML INHALATION ×2 (00:21→05:34)
[2024-09-17] MEDS: ACETAMINOPHEN 325 MG TABLET 650 MG PO (03:30)
[2024-09-17 05:37] LABS: Hematocrit 30.1 % (35.0-42.0); Hemoglobin 8.7 g/dL (11.7-13.8); Immature Platelet Fraction Pct 7.2 % (1.0-7.0); Mean Corpuscular HGB Conc 28.9 g/dL (32-36); Mean Corpuscular Hemoglobin 30.1 pg (27.0-31.0); Mean Corpuscular Volume 104.2 fL (78.0-102.0); Mean Platelet Volume 11.2 fl (9.2-11.8); Platelet Count Result 138 K/mm3 (150-420); Red Blood Count 2.89 M/mm3 (4.20-5.40); White Blood Count 5.5 K/mm3 (4.8-10.8)
[2024-09-17] MEDS: methylPREDNISolone SOD SUCC 125 MG VIAL 60 MG IV PUSH (05:42)
[2024-09-17 05:53] LABS: Alanine Aminotransferase 35 U/L (14-59); Albumin Level 2.9 g/dL (3.4-5.0); Alkaline Phosphatase 49 U/L (46-116); Anion Gap -4 mmol/L (4-12); Aspartate Amino Transferase 19 U/L (15-37); Bilirubin,Total 0.1 mg/dL (0.00-1.00); Blood Urea Nitrogen 18 mg/dL (7-18); Calcium 8.4 mg/dL (8.5-10.1); Carbon Dioxide 43 mmol/L (21-32); Chloride 103 mmol/L (98-108); Estimated CRCL calculation 73 ml/min; Estimated Glomerular Filt Rate > 60; Glucose 157 mg/dL (70-99); Osmolality Calculated 298 mOsm/kg (285-295); Potassium 4.9 mmol/L (3.5-5.1); Sodium 142 mmol/L (136-145); Total Protein 5.8 g/dL (6.4-8.2)
[2024-09-17] MEDS: lisinopriL 10 MG TABLET PO (09:27)
[2024-09-17] MEDS: PANTOPRAZOLE 40 MG TABLET PO (09:28)
[2024-09-17] MEDS: guaiFENesin 12 HR 600 MG TABCR 1200 MG PO (09:28)
--- NOTE | 2024-09-17 11:05 | P.DS_ITS ---
DS: Admitting Diagnosis Discharge Date 09/17/2024 Admitting Diagnosis Acute respiratory failure with hypoxia and hypercapnia DS: Discharge Diagnosis Discharge Diagnosis (1) Acute respiratory failure with hypoxia and hypercarbia: Code(s): J96.01 - Acute respiratory failure with hypoxia; J96.02 - Acute respiratory failure with hypercapnia Status: Acute (2) COPD exacerbation: Code(s): J44.1 - Chronic obstructive pulmonary disease with (acute) exacerbation Status: Acute (3) Lung nodule: Code(s): R91.1 - Solitary pulmonary nodule Status: Acute Assessment and Plan: * 7 mm pulmonary nodule suspicious for primary bronchogenic carcinoma * Patient will need F/U CT scan in 3 months for further evaluation (4) Fall: Code(s): W19.XXXA - Unspecified fall, initial encounter Status: Acute Assessment and Plan: * Secondary to above * PT/OT (5) Urinary tract infection: Code(s): N39.0 - Urinary tract infection, site not specified Status: Acute Plan disposition: Discharged to home DS: Summary Hospital Course Reason for hospitalization: acute respiratory failure with hypoxia and hypercapnia Hospital Course: Patient was a 63-year-old female who presented to the emergency department via EMS after she was at her primary care physician's office for follow-up appoin [facility] at which time it patient became confused and fell she was found by staff and EMS was called. patient has a known past medical history of acute respiratory failure secondary to COPD and is on chronic 5 L supplemental oxygen at home as well as uses a NIV. upon EMS arrival patient was found to be in acute respiratory distress with hypoxia with reported oxygen saturations at 45% per reports patient's oxygen tank was empty when EMS arrived. patient states she does not recall most of the events intl arrival to the emergency department is not believe she was completely unconscious or hit her head. in the emergency department patient was placed back on her normal 5 L of supplemental oxygen in an ABG showed acute respiratory failure with hypoxia and hypercapnia with a pCO2 of [address] patient on BiPAP in patient recovered quickly. Patient was then admitted to the medical unit for further evaluation and treatment of acute respiratory failure with hypoxia and hypercapnia. CT head was negative for any acute findings labs reviewed and unremarkable except for her UA which was suspicious for urinary tract infection. Patient was initially started on azithromycin and Levaquin in the emergency department however after review of patient's previous UA she had E coli which was resistant to Levaquin and she was transition to IV Cipro for previous culture sensitivity. . viral panel in the emergency department was negative for COVID/ influenza/ RSV. Patient continued admission to the medical unit and was placed BiPAP as tolerated and did well. overall respiratory status had improved patient with minimal tremors which had greatly improved from the prior day. patient alert and oriented x4 back to her baseline was ambulatory with standby assist througho ut the room oxygen stable with activity back at her 5 L of oxygen she wears at home. patient reports she is compliant with her noninvasive ventilator at home and prior to her arrival she was found to be out of her supplemental oxygen leading to her acute respiratory failure and ultimate need for admission. patient with overall improvement labs reviewed and unremarkable vital stable at time of discharge patient was seen and assessed day of discharge in no acute distress with no complaints. patient states she does oxygen at home and has a scheduled delivery with [facility], patient was updated on findings on CT scan of lung nodule and provided order for follow-up CT in 3 months for evaluation. patient was discharged home with family. Status at Discharge Functional status at discharge: independent ambulation Overall status at discharge: patient is back to baseline Time Spent with Patient Time attestation: Total time spent providing and/or coordinating discharge services: Time spent: Greater than 30 minutes Exam Narrative: * GENERAL: Alert and oriented x 3. No acute distress. * EYES: PERRLA. * HEENT: Moist mucous membranes. * LUNGS: minimal Wheezing throughout and diminished lung pacheco bLL to auscultation * CARDIOVASCULAR: Regular rate and rhythm. No murmur. No JVD. S1-S2 * ABDOMEN: Soft, non tenderness and non-distended. No palpable masses. * EXTREMITIES: No edema. Non-tender * SKIN: No rashes or lesions. Skin warm, dry. * NEUROLOGIC: No focal neurological deficits. CN II-XII grossly intact * PSYCHIATRIC: Appropriate mood and affect. Good judgement and insight. DS: Data Data Completed and Pending Labs on day of discharge: Labs from last 24 hours 09/17/24 05:24 WBC 5.5 RBC 2.89 L Hgb 8.7 L Hct 30.1 L MCV 104.2 H MCH 30.1 MCHC 28.9 L RDW 13.0 Plt Count 138 L MPV 11.2 % Immature Plt Fraction 7.2 H Sodium 142 Potassium 4.9 Chloride 103 Carbon Dioxide 43 H Anion Gap -4 L BUN 18 Creatinine 0.71 Estim Creat Clear Calc 73 Estimated GFR > 60 Glucose 157 H Calculated Osmolality 298 H Calcium 8.4 L Total Bilirubin 0.1 AST 19 ALT 35 Alkaline Phosphatase 49 Total Protein 5.8 L Albumin 2.9 L Preliminary micro results at discharge 09/15/24 17:30 Urine Culture - Preliminary Urine Clean Catch Gram negative bacilli isolated Imaging Radiologist's impression: EXAMINATION:CT diagnostic chest wo con DATE: 09/15/2024 16:30 INDICATION: Right chest pain. Fall. TECHNIQUE: Computed tomography (CT) of the chest was performed without intravenous contrast. Automated exposure control and iterative reconstruction technique were employed. The dose-length product (DLP) was 160.68 mGy-cm. COMPARISON: Chest CT 05/15/2024, 10/15/2021, 11/20/23 FINDINGS: There is severe emphysema. There is an 8 mm nodule in right upper lobe, stable from 10/15/2021, likely benign. There is a 7 mm nodule in left upper lobe, increased from 6 mm on 11/20/23. A calcified left lung nodule and calcified left hilar lymph nodes are consistent with old granulomatous disease. No pleural effusion. The heart size is normal. There are coronary artery calcifications. No pericardial effusion. The central pulmonary is enlarged, consistent with pulmonary arterial hypertension. There is mild thoracic spondylosis. IMPRESSION: 1. Severe emphysema. 2. 7 mm pulmonary nodule suspicious for primary bronchogenic carcinoma. Noncontrast low-dose chest CT is recommended in 3 months. Discharge Plan Discharge Attending physician on discharge: Kike Reeder Consulting providers: Mira Dickens Discharging Clinician: Mira Dickens Anticipated Discharge Date/Time: 09/17/24 10:51 Patient Disposition: Home, Self-Care Activity: may shower and as tolerated Diet: as tolerated Discharge Instructions: COPD: * Continue to wear your supplemental oxygen 5L as directed * continue to use your noninvasive ventilator as indicated * I have prescribed prednisone please take as indicated even if feeling better * Follow-up with pulmonology as scheduled Lung Nodule * There was a lung nodule noted on you CT of lungs I have included an order for a follow-up CT scan to be completed in 3 months and results can be sent to your primary care physician for review How can you care for yourself at home? ? Keep track of any new symptoms or changes in your symptoms. ? Rest until you feel better. ? Be safe with medicines. Take your medicines exactly as prescribed. Call your doctor if you think you are having a problem with your medicine. ? Do not drive after taking a prescription pain medicine. ? Ensure to follow-up with primary care physician as indicated and provide updated medication list provided to you at discharge. When should you call for help? Call 911 anytime you think you may need emergency care. For example, call if: ? You passed out (lost consciousness). Call your doctor now or seek immediate medical care if: ? You have new symptoms like fever, difficulty breathing, Chest pain, vomiting, or rash. ? You have new or different pain. ? You are confused and are having trouble thinking clearly. ? Your symptoms are getting worse. Watch closely for changes in your health, and be sure to contact your doctor if: ? You do not get better as expected. Patient Instructions: Antibiotic Form, COPD (Chronic Obstructive Pulmonary Disease) (DC), Pulmonary Nodules (DC), Chronic Lung Disease and Infection Prevention (DC), Energy Conservation Techniques (DC), Dyspnea Scale and Exercise (DC) Patient Language: Tamazight Stand Alone Forms: General Discharge Information Follow-up/Referrals: Khris Borden DO [Primary Care Provider] - 2 weeks Rajesh Arias APRN [Advanced Practice Nurse] - 4 Weeks Discharge Medications: New prednisone 20 mg tablet 40 mg PO DAILY Qty: 8 0RF ciprofloxacin HCl 250 mg tablet 250 mg PO Q12H Qty: 12 0RF Continued omeprazole 40 mg capsule,delayed release(DR/EC) See Rx Instructions .ROUTE .COMPLEX Qty: 180 1RF Dose Instruction: TAKE 1 CAPSULE BY MOUTH TWICE A DAY Rx Instructions: TAKE 1 CAPSULE BY MOUTH TWICE A DAY Yupelri 175 mcg/3 mL solution for nebulization See Rx Instructions .ROUTE .COMPLEX Qty: 90 11RF Dose Instruction: USE 1 VIAL IN NEBULIZER DAILY - DO NOT MIX WITH OTHER NEB MEDS,USE BEFORE OR AFTER Rx Instructions: USE 1 VIAL IN NEBULIZER DAILY - DO NOT MIX WITH OTHER NEB MEDS,USE BEFORE OR AFTER budesonide 0.5 mg/2 mL suspension for nebulization See Rx Instructions .ROUTE .COMPLEX Qty: 60 11RF Dose Instruction: USE 1 VIAL IN NEBULIZER TWICE DAILY - rinse mouth after treatment Rx Instructions: USE 1 VIAL IN NEBULIZER TWICE DAILY - rinse mouth after treatment formoterol fumarate [Perforomist] 20 mcg/2 mL solution for nebulization See Rx Instructions .ROUTE .COMPLEX Qty: 60 11RF Dose Instruction: USE 1 VIAL IN NEBULIZER TWICE DAILY - morning and evening Rx Instructions: USE 1 VIAL IN NEBULIZER TWICE DAILY - morning and evening albuterol sulfate 2.5 mg /3 mL (0.083 %) solution for nebulization 2.5 mg inhalation DAILY PRN (Reason: shortness of breath or wheezing) Qty: 90 11RF Ohtuvayre 3 mg/2.5 mL suspension for nebulization 2.5 ml inhalation QAM AND QPM lisinopril 10 mg tablet See Rx Instructions .ROUTE .COMPLEX Qty: 90 2RF Dose Instruction: TAKE 1 TABLET BY MOUTH DAILY Rx Instructions: TAKE 1 TABLET BY MOUTH DAILY fluticasone propionate [Allergy Relief (fluticasone)] 50 mcg/actuation spray,suspension 1 spray intranasal DAILY Qty: 48 3RF Rx Instructions: administer into each nostril Held prednisone 10 mg tablet 10 mg PO DAILY Qty: 90 0RF Hold Instructions: Resume on 09/22/24. Other Ambulatory Orders: CT diagnostic chest wo con (Routine) Timeframe: 3 Months Location: Determined by Patient Ordered By: Mira Dickens Date of admission: 09/15/24 18:41 Primary Care Provider: Khris Borden Admitting Provider: Kike Reeder Attending physician on admission: Kike Reeder Condition: Improved Quality VTE Prophylaxis VTE prophylaxis: pharmacologic ordered -Patient's previous records reviewed on admission -ER notes reviewed in detail on admission -discussed all findings and current treatment plan with patient/Family/POA -Consultations reviewed for recommendations -Patient's disposition for safe discharge discussed with caseworker Dictation performed by [employer] direct speech recognition software, therefore furnace tapper variants and typographical errors may occur. Hospitalist MIPS Heart Failure (Exclusion) Patient has history of Heart Transplant or Left Ventricular Assistive Device?: No IF YES, STOP HERE Heart Failure (Qualifier) Patient has current or prior documentation of LVEF less than or equal to 40%, or mod/servere depressed LVSF?: No IF NO, STOP HERE
--- NOTE | 2024-09-17 13:00 | PC.NURSE ---
Discharge instructions reviewed with patient. All questions answered. Charge nurse transported pt via wheelchair out for discharge.
--- NOTE | 2024-09-18 09:13 | PC.NURSE ---
Discharge call back complete, no questions regarding dc instructions, doing well at home
== END 2024-09-17 13:05 | disposition home or self-care (01) ==
LOC: CHSED 18:54 → CHS2ND 20:40
PROVIDERS: Nurse Practitioner Family; Admitting Provider Internal Medicine; Emergency Provider Emergency Medicine; PCP Family Medicine; Visit Provider Internal Medicine
DX: J96.01 Acute respiratory failure with hypoxia (principal); J96.02 Acute respiratory failure with hypercapnia; J44.1 Chronic obstructive pulmonary disease with (acute) exacerbation; R91.1 Solitary pulmonary nodule; N39.0 Urinary tract infection, site not specified; Z20.822 Contact with and (suspected) exposure to COVID-19; W19.XXXA Unspecified fall, initial encounter; R29.6 Repeated falls; Z85.3 Personal history of malignant neoplasm of breast; Z86.718 Personal history of other venous thrombosis and embolism; Z87.891 Personal history of nicotine dependence; Z99.81 Dependence on supplemental oxygen; Z79.899 Other long term (current) drug therapy
CPT/HCPCS: 36415; 36600; 70450; 71250; 72125; 80053; 81001; 82805; 82948; 83735; 83880; 84484; 85025; 85027; 85055; 85610; 85730; 87077; 87086; 87088; 87186; 87637; 93005; 94640; 96361; 96365; 96366; 96367; 96375; 96376; 99285; A9270; G0378; J0744; J1956; J2919; J7030

== ENCOUNTER 2024-10-31 08:18 | Emergency (ER) | payer MEDICARE, SELFPAY ==
--- NOTE | ~2024-10-31 | XR_ITS ---
EXAMINATION: XR ankle RT min 3V DATE: 10/31/2024 08:57 INDICATION: Right lower leg pain post fall TECHNIQUE: 1. Anteroposterior and lateral views of the right tibia and fibula were obtained. 2. Anteroposterior, mortise, and lateral views of the right ankle were obtained. COMPARISON: None. FINDINGS: Bone alignment is normal. No fracture. Joint spaces at the right knee, ankle and visualized portions of the forefoot are normal. Soft tissues are unremarkable. No right knee or ankle joint effusion. IMPRESSION: 1. Negative right ankle and lower leg radiographs. Reviewed, dictated and finalized at location A.
--- NOTE | ~2024-10-31 | XR_ITS ---
EXAMINATION: XR tibia fibula RT 2V DATE: 10/31/2024 08:57 INDICATION: Right lower leg pain post fall TECHNIQUE: 1. Anteroposterior and lateral views of the right tibia and fibula were obtained. 2. Anteroposterior, mortise, and lateral views of the right ankle were obtained. COMPARISON: None. FINDINGS: Bone alignment is normal. No fracture. Joint spaces at the right knee, ankle and visualized portions of the forefoot are normal. Soft tissues are unremarkable. No right knee or ankle joint effusion. IMPRESSION: 1. Negative right ankle and lower leg radiographs. Reviewed, dictated and finalized at location A.
--- OUTSIDE RECORDS SUMMARY | 2024-10-31 08:22 | XMS_ITS | Clinical Summary ---
Author Organization Unknown Care Team Providers Care Advertising Operations Coordinator Name Role Phone YU GOINS Unavailable Unavailable BLOSSOM SPIRITUAL CARE COUNSELOR, RENA Unavailabl e Unavailable BARTOLOME BD SPECIAL EDUCATION TEACHER, PAXTON Unavailable Unavailable ALIS BALANCE TRUER, BEAU Yadi vailable Unavailable PONCE CINDER PIT CRANE OPERATOR [facility] LEO, RN, NICHOLAS Unavailable Unavailable [place] REGISTERED NURSE, VI Unavailable Unav ailable TREER REGISTERED NURSE CASE, ALVARO Unavailab le Unavailable Payers Payer Name Policy Type Policy Number Effective Date Expira tion Date MEDICARE [place] [id number] Problems Condition Name Condition Details Condition Category Status Onset Date Resolution Date Last Treatment Date Treating Clinician Comments CHRONIC OBSTRUCTIVE PULMONARY DISEASE, UNSPECIFIED Active 10-22 00:00: 00 ACUTE RESPIRATORY FAILURE WITH HYPOXIA Active 10-22 00:00: 00 URINARY TRACT INFECTION, SITE NOT SPECIFIED Active 10-22 00:00: 00 REPEATED FALLS Active 10-22 00:00: 00 ANOREXIA Active 10-22 00:00: 00 UNSPECIFIED URINARY INCONTINENCE Active 10-22 00:00: 00 DEPRESSION, UNSPECIFIED Active 10-22 00:00: 00 PERSONAL HISTORY OF MALIGNANT NEOPLASM OF BREAST Active 10-22 00:00: 00 ACQUIRED ABSENCE OF RIGHT BREAST AND NIPPLE Active 10-22 00:00: 00 DEPENDENCE ON SUPPLEMENTAL OXYGEN Active 10-22 00:00: 00 PERSONAL HISTORY OF ANTINEOPLAST IC CHEMOTHERAPY Active 10-22 00:00: 00 ACQUIRED ABSENCE OF OTHER SPECIFIED PARTS OF DIGESTIVE TRACT Active 10-22 00:00: 00 PERSONAL HISTORY OF NICOTINE DEPENDENCE Active 10-22 00:00: 00 Allergies, Adverse Reactions, Alerts Allergy Name Allergy Type Status Severity Reaction(s) Onset Date Inactive Date Treating Clinician Comments NO KNOWN ALLERGIES Propensity to adverse reactions Active 10-26 07:09: 56 Medications Ordered Medication Name Filled Medication Name Start Date Stop Date Current Medication? Ordering Clinician Indication Dosage Frequency Signature (SIG) Comments Components acetaminoph en 650 mg rectal suppository 10-22 00:00: 00 Yes [id number] MILD PAIN / FEVER 1 supposi tory, rectal EVERY 4 HOURS 1 suppositor y, rectal EVERY 4 HOURS (route: rectal) Med Classific ation: Analgesic , Anti-infl ammatory or Antipyret ic bisacodyl 10 mg rectal suppository 10-22 00:00: 00 Yes [id number] CONSTIPATIO N 1 supposi tory, rectal DAILY 1 suppositor y, rectal DAILY (route: rectal) Med Classific ation: Gastroint estinal Therapy Agents bisacodyl 5 mg tablet,juan alberto yed release 10-22 00:00: 00 Yes [id number] CONSTIPATIO N 1 tablet ONCE DAILY 1 tablet ONCE DAILY (route: oral) Med Classific ation: Gastroint estinal Therapy Agents budesonide 0.25 mg/2 mL suspension for nebulizatio n 10-22 00:00: 00 Yes [id number] COPD 2 mL TWICE DAILY 2 mL TWICE DAILY (route: inhalation ) Med Classific ation: Respirato ry Therapy Agents Flonase Allergy Relief 50 mcg/actuati on nasal spray,suspe nsion 10-22 00:00: 00 Yes [id number] ALLERGIES 1 spray ONCE DAILY 1 spray ONCE DAILY (route: nasal) Alternate Route: NOSTRIL - BOTH. Med Classific ation: Respirato ry Therapy Agents haloperidol lactate 2 mg/mL oral concentrate 10-22 00:00: 00 Yes [id number] SEVERE AGITATION / NAUSEA / VOMITING 0.5 mL EVERY 4 HOURS 0.5 mL EVERY 4 HOURS (route: oral) Med Classific ation: Central Nervous System Agents hyoscyamine 0.125 mg sublingual tablet 10-22 00:00: 00 Yes [id number] EXCESSIVE SECRETIONS 1 tablet EVERY 4 HOURS 1 tablet EVERY 4 HOURS (route: sublingual ) Med Classific ation: Gastroint estinal Therapy Agents lisinopril 10 mg tablet 10-22 00:00: 00 Yes [id number] HTN 1 tablet ONCE DAILY 1 tablet ONCE DAILY (route: oral) Med Classific ation: Cardiovas cular Therapy Agents lorazepam 1 mg tablet 10-22 00:00: 00 Yes [id number] ANXIETY / RESTLESSNES S 1 tablet EVERY 4 HOURS 1 tablet EVERY 4 HOURS (route: oral) Med Classific ation: Central Nervous System Agents morphine concentrate 100 mg/5 mL (20 mg/mL) oral solution 10-22 00:00: 00 Yes [id number] PAIN / SHORTNESS OF BREATH 0.25 mL HOURLY 0.25 mL HOURLY (route: oral) Med Classific ation: Analgesic , Anti-infl ammatory or Antipyret ic omeprazole 40 mg capsule,del ayed release 10-22 00:00: 00 Yes [id number] HEART BURN 1 capsule TWICE DAILY 1 capsule TWICE DAILY (route: oral) Med Classific ation: Gastroint estinal Therapy Agents prednisone 10 mg tablet 10-22 00:00: 00 Yes [id number] COPD 1 tablet ONCE DAILY 1 tablet ONCE DAILY (route: oral) Med Classific ation: Endocrine Robitussin Cough-Chest Congestion DM 5 mg-100 mg/5 mL oral liquid 10-22 00:00: 00 Yes [id number] COUGH 20 mL EVERY 4 HOURS 20 mL EVERY 4 HOURS (route: oral) Med Classific ation: Respirato ry Therapy Agents Sudafed 12 Hour 120 mg tablet,exte nded release 10-22 00:00: 00 Yes [id number] SINUSES 1 tablet EVERY 12 HOURS 1 tablet EVERY 12 HOURS (route: oral) Med Classific ation: Respirato ry Therapy Agents Tylenol Extra Strength 500 mg tablet 10-22 00:00: 00 Yes [id number] PAIN/FEVER 2 tablet EVERY 8 HOURS 2 tablet EVERY 8 HOURS (route: oral) Med Classific ation: Analgesic , Anti-infl ammatory or Antipyret ic Yupelri 175 mcg/3 mL solution for nebulizatio n 10-22 00:00: 00 Yes [id number] COPD 3 mL ONCE DAILY 3 mL ONC E DAILY (route: inhalation ) Med Classific ation: Respirato ry Therapy Agents oxygen gas for inhalation 10-22 00:00: 00 Yes [id number] SOB 6 Liter O2 - CONTINUOUS 6 Liter O2 - CONTINUOUS (route: inhalation ) Alternate Route: O2 - NASAL CANNULA. Med Classific ation: Medical Supplies and Durable Medical Equipment (DME) albuterol sulfate 2.5 mg/3 mL (0.083 %) solution for nebulizatio n 10-26 00:00: 00 Yes [id number] SOB WHEEZING 3 mL EVERY 6 HOURS 3 mL EVERY 6 HOURS (route: inhalation ) Med Classific ation: Respirato ry Therapy Agents Vital Signs Vital Name Observation Time Observation Value Commen ts Temperature 2024-10-29 11:40:00.000 97.2 [degF] Temperature 2024-10-26 13:03:00.000 97.2 [degF] Temperature 2024-10-23 09:20:00.000 97.7 [degF] Temperature 2024-10-22 20:00:00.000 97.8 [degF] BMI (%) 2024-10-22 20:00:00.000 22 kg/m2 Height 2024-10-22 20:00:00.000 70 [in_us] Pulse 2024-10-29 11:40:00.000 57 /min Pulse 2024-10-26 13:03:00.000 88 /min Pulse 2024-10-23 09:20:00.000 85 /min Pulse 2024-10-22 20:00:00.000 88 /min Respirations 2024-10-29 11:40:00.000 24 /min Respirations 2024-10-26 13:03:00.000 18 /min Respirations 2024-10-23 09:20:00.000 22 /min Respirations 2024-10-22 20:00:00.000 24 /min Weight (lbs) 2024-10-22 20:00:00.000 160 [lb_av] Systolic Blood Pressure 2024-10-29 11:40:00.000 73 mm[ Hg] Systolic Blood Pressure 2024-10-26 13:03:00.000 128 mm [Hg] Systolic Blood Pressure 2024-10-23 09:20:00.000 124 mm [Hg] Systolic Blood Pressure 2024-10-22 20:00:00.000 119 mm [Hg] Diastolic Blood Pressure 2024-10-29 11:40:00.000 53 mm [Hg] Diastolic Blood Pressure 2024-10-26 13:03:00.000 61 mm [Hg] Diastolic Blood Pressure 2024-10-23 09:20:00.000 66 mm [Hg] Diastolic Blood Pressure 2024-10-22 20:00:00.000 60 mm [Hg] Plan of Treatment Planned Activity Planned Date Details Comments Future Scheduled Test CUSTOMER SOLUTIONS COORDINATOR TO EVALUATE KOBI AND DEVELOP A NURSING PLAN OF CARE. [code = CUSTOMER SOLUTIONS COORDINATOR TO EVALUATE KOBI AND DEVELOP A NURSING PLAN OF CARE.] Future Scheduled Test ROUTINE [place] LUZ OF CARE FOR MANAGEMENT OF SYMPTOMS AND PROVIDING COMFORT AT END OF LIFE. [code = ROUTINE LEVEL OF CARE FOR MANAGEMENT OF SYMPTOMS AND PROVIDING COMFORT AT END OF LIFE.] Future Scheduled Test HOSPICE NU RSE TO ASSESS MEDICATION RESPONSE AND INSTRUCT ON SCHEDULE, ACTIONS, PURPOSE, SIDE EFFECTS, COMPLIANCE AND NEED TO REPORT SIDE EFFECTS TO HOSPICE STAFF. [code = HOSPICE NURSE TO ASSESS MEDICATION RESPONSE AND INSTRUCT ON SCHEDULE, ACTIONS, PURPOSE, SIDE EFFECTS, COMPLIANCE AND NEED TO REPORT SIDE EFFECTS TO HOSPICE STAFF.] Future Scheduled Test HOSPICE NU RSE TO MONITOR PATIENT'S PAIN LEVEL AND REPORT INEFFECTIVE PAIN CONTROL TO THE PHYSICIAN. [code = HOSPICE NURSE TO MONITOR PATIENT'S PAIN LEVEL AND REPORT INEFFECTIVE PAIN CONTROL TO THE PHYSICIAN.] Future Scheduled Test HOSPICE NU RSE FOR ASSESSMENT OF PATIENT SAFETY, INSTRUCT SAFETY MEASURES APPLICABLE. [code = HOSPICE NURSE FOR ASSESSMENT OF PATIENT SAFETY, INSTRUCT SAFETY MEASURES APPLICABLE.] Future Scheduled Test HOSPICE NU RSE TO INSTRUCT IN SAFE USE OF OXYGEN AND MONITOR ITS EFFECTIVENESS. [code = HOSPICE NURSE TO INSTRUCT IN SAFE USE OF OXYGEN AND MONITOR ITS EFFECTIVENESS.] Future Scheduled Test HOSPICE NU RSE TO PROVIDE INSTRUCTIONS/REINFORCEMENT RELATED TO URINARY INCONTINENCE. [code = HOSPICE NURSE TO PROVIDE INSTRUCTIONS/REINFORCEMENT RELATED TO URINARY INCONTINENCE.] Future Scheduled Test HOSPICE NU RSE TO PROVIDE INSTRUCTIONS RELATED TO NUTRITION/HYDRATION STATUS IN THE TERMINAL PATIENT. [code = HOSPICE NURSE TO PROVIDE INSTRUCTIONS RELATED TO NUTRITION/HYDRATION STATUS IN THE TERMINAL PATIENT.] Future Scheduled Test MEDICAL SO CIAL WORKER TO EVALUATE SOCIAL, EMOTIONAL AND FINANCIAL FACTORS RELATED TO THE PATIENT'S ILLNESS, NEED FOR ADDITIONAL CARE/RESOURCES, ADJUSTMENT TO CARE AND DEVELOP A PLAN OF CARE. [code = LOAN REVIEW ANALYST TO EVALUATE SOCIAL, EMOTIONAL AND FINANCIAL FACTORS RELATED TO THE PATIENT'S ILLNESS, NEED FOR ADDITIONAL CARE/RESOURCES, ADJUSTMENT TO CARE AND DEVELOP A PLAN OF CARE.] Future Scheduled Test CHILD CARE AIDE T O EVALUATE PATIENT/FAMILY/CAREGIVER AND DEVELOP A PLAN OF CARE. [code = CHILD CARE AIDE TO EVALUATE PATIENT/FAMILY/CAREGIVER AND DEVELOP A PLAN OF CARE.] Future Scheduled Test HOME HEALT H AIDE SERVICE FOR ASSISTANCE WITH PERSONAL CARE, HYGIENE AND ACTIVITIES OF DAILY LIVING. [code = HOME HEALTH AIDE SERVICE FOR ASSISTANCE WITH PERSONAL CARE, HYGIENE AND ACTIVITIES OF DAILY LIVING.] Future Scheduled Test HOSPICE NU RSE TO ASSESS EFFECTIVENESS OF CARDIOPULMONARY SYMPTOM RELIEF MEASURES INCLUDING OXYGEN TREATMENT AND COMFORT MODALITIES [code = HOSPICE NURSE TO ASSESS EFFECTIVENESS OF CARDIOPULMONARY SYMPTOM RELIEF MEASURES INCLUDING OXYGEN TREATMENT AND COMFORT MODALITIES] Future Scheduled Test INSTRUCT R EGARDING APPROPRIATE BOWEL PROTOCOL NEEDED. [code = INSTRUCT REGARDING APPROPRIATE BOWEL PROTOCOL NEEDED.] Future Scheduled Test HOSPICE NU RSE TO INSTRUCT IN PERFORMING INHALATION THERAPY AND CARE FOR EQUIPMENT. [code = HOSPICE NURSE TO INSTRUCT IN PERFORMING INHALATION THERAPY AND CARE FOR EQUIPMENT.] Future Scheduled Test HOSPICE NU RSE TO ASSESS FOR SIGNS/SYMPTOMS OF ANXIETY/TERMINAL AGITATION AND PROVIDE INSTRUCTION REGARDING ORIGIN AND MANAGEMENT. [code = HOSPICE NURSE TO ASSESS FOR SIGNS/SYMPTOMS OF ANXIETY/TERMINAL AGITATION AND PROVIDE INSTRUCTION REGARDING ORIGIN AND MANAGEMENT.] Goal Provider Goal - A NURSING PLAN OF CARE WILL BE ESTABLISHED. Goal Provider Goal - A ROUTINE PLAN OF CARE WILL BE ESTABLISHED IN ORDER TO MANAGE SYMPTOMS AND PROVIDE COMFORT AT END OF LIFE. Goal Provider Goal - MEDICATIONS WILL BE MANAGED APPROPRIATELY EVIDENCED BY STEADY SYMPTOM CONTROL. PATIENT/CAREGIVER WILL VERBALIZE/DEMONSTRATE COMPLIANCE WITH MEDICATION REGIMEN. Goal Provider Goal - PAIN WILL BE MANAGED AT A LEVEL ACCEPTABLE TO THE PATIENT. Goal Provider Goal - KOBI WILL HAVE SAFETY NEEDS MET. Goal Provider Goal - PATIENT/CAREGIVER WILL VERBALIZE/DEMONSTRATE UNDERSTANDING OF HOW TO USE OXYGEN SAFELY AND EFFECTIVELY. Goal Provider Goal - PATIENT/CAREGIVER WILL VERBALIZE UNDERSTANDING OF EFFECTS OF URINARY INCONTINENCE. Goal Provider Goal - PATIENT/CAREGIVER VERBALIZES UNDERSTANDING OF ANOREXIA/DEHYDRATION IN THE TERMINAL PATIENT AND CAREGIVER DEMONSTRATES OFFERING, BUT NOT FORCING FOOD/FLUIDS TO PATIENT. Goal Provider Goal - A LOAN REVIEW ANALYST PLAN OF CARE WILL BE ESTABLISHED WITHIN 5 DAYS. Goal Provider Goal - A CHILD CARE AIDE PLAN OF CARE WILL BE ESTABLISHED WITHIN 5 DAYS. Goal Provider Goal - PATIENT WILL RECEIVE ASSISTANCE WITH PERSONAL CARE AND HYGIENE AND OTHER ACTIVITIES OF DAILY LIVING NEEDED. Goal Provider Goal - PATIENT WILL VERBALIZE/DEMONSTRATE REDUCTION OR RELIEF OF CARDIOPULMONARY SYMPTOMS. Goal Provider Goal - PATIENT WILL FOLLOW AN EFFECTIVE BOWEL PROGRAM TO PREVENT/RELIEVE CONSTIPATION. Goal Provider Goal - PATIENT/CAREGIVER WILL DEMONSTRATE INDEPENDENCE IN ADMINISTRATION OF INHALATION THERAPY AND CARE FOR EQUIPMENT. Goal Provider Goal - PATIENT'S ANXIETY/AGITATION IS MINIMIZED/CONTROLLED AND CAREGIVER VERBALIZES UNDERSTANDING OF ITS EFFECTS/ORIGIN/TREATMENT. Progress Notes Progress Notes <paragraph>[Visit Date: 2024 by BEAU SNELL BALANCE TRUER]:</paragraph><paragraph>UPON ARRIVAL CLIENT WAS FOUND ON BATHROOM FLOOR I ASSESSED CLIENT WHO SAID SHE WAS THERE FOR AWHILE I ATTEMPTED AND COULD NOT GET CLIENT UP BY MYSELF LIFT ASSIST WAS CALLED THEY HELPED GET PATIENT UP AND IN BED CLIENT HAS A SMALL SKIN TEAR TO LEFT WRIST AND BRUISING TO LEFT SHOULDER AND LEFT SHOULDER BLADE ALSO BRUISING ON LEFT ANKLE CLIENT STATES THOSE CAME FROM HER FIRST FALL THIS MORNING NO BRUISING NOTED TO HEAD CLIENT WAS COMPLAINING OF RT FOOT PAIN WAS HAVING TROUBLE WALKING PT DECLINED TO GO TO HOSPITAL PT ALSO DECLINED A NURSE VISIT I OFFERED MULTIPLE TIMES SHE SAID NO SHE JUST WANTED TO REST I EDUCATED PT ON TAKING HER WALKER AND PHONE WITH HER AT ALL TIMES SO IN CASE SHE FALLS SHE CAN CALL FOR HELP AT LEAST PT EXPRESSED UNDERSTANDING LOPEZ LEBRON IS AWARE OF EVERYTHING AND ALSO DOCUMENTED PT REFUSED ALL OTHER ADLS STATING SHE WAS JUST TIRED AND WANTED TO REST</paragraph> <paragraph>[Visit Date: 2024 by VI GLEZ REGISTERED NURSE]:</paragraph><paragraph>PT IS A 64 YEAR OLD FEMALE WITH A DIAGNOSIS OF COPD. PT RESIDES AT HOME ALONE WITH VERY LIMITED SUPPORT. PT IS RESTING IN HOSPITAL BED DURING VISIT. PT IS AOX4. DENIED PAIN. VSS. LUNG SOUNDS ARE CLEAR BUT DIMINISHED THROUGHOUT. PT ON CONTINUOUS O2 AT 6L VIA NC.USES A NON-INVASIVE VENTILATION MACHINE AT NIGHT. SOB WITH MINIMAL EXERTION. PT REQUIRES MODERATE ASSITANCE FOR ADLS. PT IS INCONTINENT OF BLADDER AND BOWEL WELL AT TIMES. PT STATES THAT APPETITE COMES AND GOES BUT SHE DRINKS PLENTY OF WATER. SKIN IS WARM AND DRY.</paragraph> <paragraph>[Visit Date: 2024 by VI GLEZ REGISTERED NURSE]:</paragraph><paragraph>VM LEFT FOR DAUGHTER MIRLANDE</paragraph> <paragraph>[Visit Date: 2024 by RENA CERRATO SPIRITUAL CARE COUNSELOR]:</paragraph><paragraph>CHILD CARE AIDE VISITED WITH PT TODAY TO PROVIDE ANY NEEDED SPIRITUAL OR EMOTIONAL SUPPORT AND TO COMPLETE ASSESSMENT OF CURRENT NEEDS AND STATUS. PT HAS A [employer] BACKGROUND BUT IS NOT A MEMBER OF ANY CONGREGATION. PT HAS STRONG ZACK AND IS ACCEPTING OF STATUS AND STATED SHE IS READY TO WHEN THE TIME COMES. PT RECEIVES GREAT DEAL OF SUPPORT FROM FAMILY. VISIT FREQUENCY WILL BE 2X PER MONTH FOR SPIRITUAL AND EMOTIONAL SUPPORT NEEDED.</paragraph> <paragraph>[Visit Date: 2024 by BEAU SNELL BALANCE TRUER]:</paragraph><paragraph>UPON ARRIVAL CLIENT WAS SITTING ON COUCH I GREETED CLIENT AND WE SAT AND TALKED FOR A BIT AND WE WALKED TO THE BATHROOM I PERFORMED ALL ADLS PER AIDE CARE PLAN CLIENT WAS SITTING ON COUCH UPON DEPARTURE CLIENT EXPRESSED NO NEW CONCERNS AT THIS TIME OTHER THEN ASKING ABOUT SUPPLIES I LEFT 2 PACKS OF DEPENDS FOR CLIENT AND REACHED OUT ABOUT SUPPLY ORDER</paragraph> <paragraph>[Visit Date: 2024 by PAXTON MANCUSO MSW]:</paragraph><paragraph>PATIENT SITTING IN HER RECLINER WHEN SW ARRIVED. PATIENT HAS OXYGEN ON. SHE TALKED TO HAVING A PROBLEM WITH THE OXYGEN CONCENTRATOR BUT SAYS IT HAS BEEN RESOLVED AT THIS TIME. PATIENT IS ALERT AND ORIENTED X3. PATIENT IS ABLE TO MAKE NEEDS KNOWN. ... PATIENT NEEDS MODERATE ASSISTANCE FOR ADLS. PATIENT DENIED PAIN. HER BIGGEST CONCERN IS FALLING. PATIENT KEEPS HER PHONE WITH HER. HER APPETITE VARIES. PATIENT REQUESTS VOLUNTEER FOR SOCIALIZATION. PATIENT IS DNR. PATIENT'S EX- COMES OVER AND DOES ERRANDS FOR PATIENT ONCE A WEEK. PATIENT HAS 2 CHILDREN WHO WORK DURING THE DAY. PATIENT WOULD LIKE VISIT WHERE HER CHILDREN CAN BE PRESENT WELL. SW GAVE HER SW IS PHONE NUMBER AND ENCOURAGED THEM TO CALL. PATIENT PLANS TO USE [facility] IN [place]. SW WILL CONTINUE TO MONITOR FOR NEEDS AND CONCERNS. SW WILL WAIT FOR DAUGHTERS CALL. SW ENCOURAGED PT TO CALL [phone] NUMBER WITH QUESTIONS AND CONCERNS..</paragraph> <paragraph>[Visit Date: 2024 by VI GLEZ REGISTERED NURSE]:</paragraph><paragraph>PT IS A 64 YEAR OLD FEMALE WITH A DIAGNOSIS OF COPD. PT RESIDES AT HOME ALONE WITH VERY LIMITED SUPPORT. HER EX COMES ONCE A WEEK TO HELP WITH A FEW [employer] STEAMER AND SHOPPING. PT IS RESTING IN HER RECLINER WITH LEGS ELEVATED DURING VISIT. PT IS AOX4. DENIED PAIN. VSS. LUNG SOUNDS ARE CLEAR BUT DIMINISHED THROUGHOUT. PT ON CONTINUOUS O2 AT 6L VIA NC. PT USES A NON-INVASIVE VENTILATION MACHINE AT NIGHT. PT STATES THAT SHE DOES GET SOB WITH MINIMAL EXERTION. PT REQUIRES MODERATE ASSITANCE FOR ADLS. PT IS INCONTINENT OF BLADDER BUT IS ABLE TO GET TO THE TOILET FOR A BM, IS OCCASIONALLY INCONT OF BOWEL WELL. PT STATES THAT APPETITE COMES AND GOES BUT SHE DRINKS PLENTY OF WATER. SKIN IS WARM AND DRY. BRUISING TO BUE AND BLE. PT IS EDUCATED ON THE [phone] NUMBER TO CALL WITH QUESTIONS OR CONCERNS. READY FOR TOOL DISTRIBUTOR TO VISIT TOMORROW. NEB TREATMENTS ORDERED.</paragraph> Encounters Start Date/Time End Date/Time Encounter Type Admission Type Attending [facility] Care Facility Care Department Encounter ID Discharge Date Discharge Status Discharge Condition Discharge Reason Percent Goals Met 2024-10-22 00:00:00 2025-01-19 00:00:00 Outpatient NEW ADMISSION VI GLEZ [facility] [id number] 59. [id number]
--- OUTSIDE RECORDS SUMMARY | 2024-10-31 08:22 | XMS_ITS | Clinical Summary ---
Author Organization Unknown Care Team Providers Care Dairy Clerk Name Role Phone YU GOINS Unavailable Unavailable BLOSSOM SPIRITUAL CARE COUNSELOR, RENA Unavailabl e Unavailable BARTOLOME REGISTERED NURSE SURGICAL SERVICES, PAXTON Unavailable Unavailable ALIS INSULATION MACHINE OPERATOR, BEAU Yadi vailable Unavailable PONCE CUFF SETTER [facility] LEO, RN, NICHOLAS Unavailable Unavailable [place] REGISTERED NURSE, VI Unavailable Unav ailable TREER REGISTERED NURSE CASE, ALVARO Unavailab le Unavailable Payers Payer Name Policy Type Policy Number Effective Date Expira tion Date MEDICARE [place] [id number] Problems Condition Name Condition Details Condition Category [...] mg rectal suppository 10-22 00:00: 00 Yes [id number] MILD PAIN / FEVER 1 supposi tory, rectal EVERY 4 HOURS 1 suppositor y, rectal EVERY 4 HOURS (route: rectal) Med Classific ation: Analgesic , Anti-infl ammatory or Antipyret ic bisacodyl 10 mg rectal suppository 10-22 00:00: 00 Yes [id number] CONSTIPATIO N 1 supposi tory, rectal DAILY 1 suppositor y, rectal DAILY (route: rectal) Med Classific ation: Gastroint estinal Therapy Agents bisacodyl 5 mg tablet,juan alberto yed release 10-22 00:00: 00 Yes [id number] CONSTIPATIO N 1 tablet ONCE DAILY 1 tablet ONCE DAILY (route: oral) Med Classific ation: Gastroint estinal Therapy Agents budesonide 0.25 mg/2 mL suspension for nebulizatio n 10-22 00:00: 00 Yes [id number] COPD 2 mL TWICE DAILY 2 mL TWICE DAILY (route: inhalation ) Med Classific ation: Respirato ry Therapy Agents Flonase Allergy Relief 50 mcg/actuati on nasal spray,suspe nsion 10-22 00:00: 00 Yes [id number] ALLERGIES 1 spray ONCE DAILY 1 spray ONCE DAILY (route: nasal) Alternate Route: NOSTRIL - BOTH. Med Classific ation: Respirato ry Therapy Agents haloperidol lactate 2 mg/mL oral concentrate 10-22 00:00: 00 Yes [id number] SEVERE AGITATION / NAUSEA / VOMITING 0.5 mL EVERY 4 HOURS 0.5 mL EVERY 4 HOURS (route: oral) Med Classific ation: Central Nervous System Agents hyoscyamine 0.125 mg sublingual tablet 10-22 00:00: 00 Yes [id number] EXCESSIVE SECRETIONS 1 tablet EVERY 4 HOURS 1 tablet EVERY 4 HOURS (route: sublingual ) Med Classific ation: Gastroint estinal Therapy Agents lisinopril 10 mg tablet 10-22 00:00: 00 Yes [id number] HTN 1 tablet ONCE DAILY 1 tablet ONCE DAILY (route: oral) Med Classific ation: Cardiovas cular Therapy Agents lorazepam 1 mg tablet 10-22 00:00: 00 Yes [id number] ANXIETY / RESTLESSNES S 1 tablet EVERY 4 HOURS 1 tablet EVERY 4 HOURS (route: oral) Med Classific ation: Central Nervous System Agents morphine concentrate 100 mg/5 mL (20 mg/mL) oral solution 10-22 00:00: 00 Yes [id number] PAIN / SHORTNESS OF BREATH 0.25 mL HOURLY 0.25 mL HOURLY (route: oral) Med Classific ation: Analgesic , Anti-infl ammatory or Antipyret ic omeprazole 40 mg capsule,del ayed release 10-22 00:00: 00 Yes [id number] HEART BURN 1 capsule TWICE DAILY 1 capsule TWICE DAILY (route: oral) Med Classific ation: Gastroint estinal Therapy Agents prednisone 10 mg tablet 10-22 00:00: 00 Yes [id number] COPD 1 tablet ONCE DAILY 1 tablet ONCE DAILY (route: oral) Med Classific ation: Endocrine Robitussin Cough-Chest Congestion DM 5 mg-100 mg/5 mL oral liquid 10-22 00:00: 00 Yes [id number] COUGH 20 mL EVERY 4 HOURS 20 mL EVERY 4 HOURS (route: oral) Med Classific ation: Respirato ry Therapy Agents Sudafed 12 Hour 120 mg tablet,exte nded release 10-22 00:00: 00 Yes [id number] SINUSES 1 tablet EVERY 12 HOURS 1 tablet EVERY 12 HOURS (route: oral) Med Classific ation: Respirato ry Therapy Agents Tylenol Extra Strength 500 mg tablet 10-22 00:00: 00 Yes [id number] PAIN/FEVER 2 tablet EVERY 8 HOURS 2 tablet EVERY 8 HOURS (route: oral) Med Classific ation: Analgesic , Anti-infl ammatory or Antipyret ic Yupelri 175 mcg/3 mL solution for nebulizatio n 10-22 00:00: 00 Yes [id number] COPD 3 mL ONCE DAILY 3 mL ONC E DAILY (route: inhalation ) Med Classific ation: Respirato ry Therapy Agents oxygen gas for inhalation 10-22 00:00: 00 Yes [id number] SOB 6 Liter O2 - CONTINUOUS 6 Liter O2 - CONTINUOUS (route: inhalation ) Alternate Route: O2 - NASAL CANNULA. Med Classific ation: Medical Supplies and Durable Medical Equipment (DME) albuterol sulfate 2.5 mg/3 mL (0.083 %) solution for nebulizatio n 10-26 00:00: 00 Yes [id number] SOB WHEEZING 3 mL EVERY 6 HOURS [...] Planned Date Details Comments Future Scheduled Test BUSINESS DIRECTOR TO EVALUATE KOBI AND DEVELOP A NURSING PLAN OF CARE. [code = BUSINESS DIRECTOR TO EVALUATE KOBI AND DEVELOP A NURSING [...] DEVELOP A PLAN OF CARE. [code = PINION SORTER TO EVALUATE SOCIAL, EMOTIONAL AND FINANCIAL FACTORS RELATED TO THE PATIENT'S ILLNESS, NEED FOR ADDITIONAL CARE/RESOURCES, ADJUSTMENT TO CARE AND DEVELOP A PLAN OF CARE.] Future Scheduled Test RESAW CARRIAGE OPERATOR T O EVALUATE PATIENT/FAMILY/CAREGIVER AND DEVELOP A PLAN OF CARE. [code = RESAW CARRIAGE OPERATOR TO EVALUATE PATIENT/FAMILY/CAREGIVER AND DEVELOP A PLAN [...] TO PATIENT. Goal Provider Goal - A PINION SORTER PLAN OF CARE WILL BE ESTABLISHED WITHIN 5 DAYS. Goal Provider Goal - A RESAW CARRIAGE OPERATOR PLAN OF CARE WILL BE ESTABLISHED WITHIN [...] Notes <paragraph>[Visit Date: 2024 by BEAU SNELL INSULATION MACHINE OPERATOR]:</paragraph><paragraph>UPON ARRIVAL CLIENT WAS FOUND ON BATHROOM FLOOR [...] Date: 2024 by RENA CERRATO SPIRITUAL CARE COUNSELOR]:</paragraph><paragraph>RESAW CARRIAGE OPERATOR VISITED WITH PT TODAY TO PROVIDE ANY NEEDED SPIRITUAL OR EMOTIONAL SUPPORT AND TO COMPLETE ASSESSMENT OF CURRENT NEEDS AND STATUS. PT HAS A CHEONDOISM ZACK BACKGROUND BUT IS NOT A MEMBER OF ANY MORMONISM. PT HAS STRONG ZACK AND IS ACCEPTING OF STATUS AND STATED SHE IS READY TO WHEN THE TIME COMES. PT RECEIVES GREAT DEAL OF SUPPORT FROM FAMILY. VISIT FREQUENCY WILL BE 2X PER MONTH FOR SPIRITUAL AND EMOTIONAL SUPPORT NEEDED.</paragraph> <paragraph>[Visit Date: 2024 by BEAU SNELL INSULATION MACHINE OPERATOR]:</paragraph><paragraph>UPON ARRIVAL CLIENT WAS SITTING ON COUCH I [...] THEM TO CALL. PATIENT PLANS TO USE [facility] IN [place]. SW WILL CONTINUE TO MONITOR FOR NEEDS [...] A WEEK TO HELP WITH A FEW PRODUCTION CONTROL EXPERT AND SHOPPING. PT IS RESTING IN HER [...] CALL WITH QUESTIONS OR CONCERNS. READY FOR BAREBACK RIDER TO VISIT TOMORROW. NEB TREATMENTS ORDERED.</paragraph> Encounters Start Date/Time End Date/Time Encounter Type Admission Type Attending [facility] Care Facility Care Department Encounter ID Discharge Date Discharge Status Discharge Condition Discharge Reason Percent Goals Met 2024-10-22 00:00:00 2025-01-19 00:00:00 Outpatient NEW ADMISSION VI [facility] ED [id number] 59. 50
--- OUTSIDE RECORDS SUMMARY | 2024-10-31 08:22 | XMS_ITS | Clinical Summary ---
Author Organization [facility] Address [address] [place] [id number] Care Team Providers Care Uc Architect Name Role Phone Unavailable Primary Care Provider [...] Comments Blood Pressure 114/78 05/10/2015 9:25 AM DIRECTOR EQUIPMENT Pulse 72 05/10/2015 9:25 AM DIRECTOR EQUIPMENT Temperature - - Respiratory Rate - - Oxygen Saturation - - Inhaled Oxygen Concentration - - Weight 61.2 kg (135 lb) 05/10/2015 9:25 AM DIRECTOR EQUIPMENT Height 177.8 cm (5' 10 ) 05/10/2015 9:25 AM DIRECTOR EQUIPMENT Body Mass Index 19.37 05/10/2015 9:25 AM DIRECTOR EQUIPMENT Plan of Treatment Health Maintenance Due Date Last Done Comments Colorectal Cancer Screening Colonoscopy (10 Years) 1958 Hepatitis C 1976 DTaP, Tdap and Td Vaccines ( 1 - Tdap) 1977 Mammogram Screening 1998 Pneumococcal Vaccine: 50+ Ye ars (1 of 1 - PCV) 2008 1958 Zoster Vaccines (1 of 2) 2008 Dexa Scan (General) 09/18/2023 COVID-19 Vaccine ( - 2023-2 5 season) 2024 RSV Immunization or 60+ Years (1 - 1-dose 75+ series) 2033 Meningococcal B Vaccine Aged Out No l onger eligible based on patient's age to complete this topic Meningococcal Vaccine Aged Out No luisa kristen eligible based on patient's age to complete this topic RSV Immunizations Under 20 Months Aged Out No longer eligible based on patient's age to complete this topic
[2024-10-31 08:26] VITALS: BP 112/58; PULSE 100; RESP 18; TEMP 36.6; O2SAT 100
--- NOTE | 2024-10-31 08:31 | ED_ITS ---
HPI - Wound/Laceration General Stated Complaint: fall Time Seen by Provider: 10/31/24 08:30 Source: patient and EMS Mode of arrival: EMS History of Present Illness HPI narrative: this is a 64-year-old female hospice patient presents via EMS after she had a ground level fall earlier this morning and hitting the back of her head causing a laceration to the occipital area of the left posterior scalp with no loss of consciousness has a skin tear on the right forearm and a bruising on the right lower leg. Does move all extremities no loss of consciousness no blurry vision no headache no nausea vomiting. Onset (ago): hour(s) Place: home Patient tetanus UTD: Yes Context: accidental Related Data Home Medications ?Medication ?Instructions ?Recorded ?Confirmed ?Last Taken ?Type ensifentrine 3 mg/2.5 mL 2.5 ml inhalation QAM AND QPM 05/18/24 10/06/24 Unknown History suspension for nebulization (Ohtuvayre) Allergies Allergy/AdvReac Type Severity Reaction Status Date / Time No Known Allergies Allergy Unknown Verified 10/06/24 12:17 Review of Systems Review of Systems: All systems reviewed & are unremarkable except as noted in HPI and below PMFSH Past Medical History Medical History Ileus, unspecified Duodenal diverticulum Intermittent diarrhea Belching Upper abdominal pain Abdominal distension History of DVT (deep vein thrombosis) Breast cancer Right Breast Removed. SP Chemo. Completed Radiation 07-10-18. Underweight Depression COPD (chronic obstructive pulmonary disease) Surgical History Surgical History History of repair of rotator cuff Right Shoulder History of hysterectomy History of cholecystectomy Family History Family History Other Diabetes mellitus Social History Social History Smoking packs per day: 1 Smoking cigarettes per day: 20.0 Years smoked: 40 Smoking pack-years: 40.00 Smoking status: Former smoker Tobacco type: cigarettes Alcohol intake: former Drinks per week: 0 Substance use: never Substance use type: does not use Do You Feel Safe in your Home?: Yes Lack of Transportation: No Lack of Food: Never True Current Housing: I Have Housing Concerned About Future Housing: No Difficulty Paying Gas/Electric Bills: No Difficulty Paying for Meds: No Currently Unemployed: No Education: Grade School Difficulty w/ Childcare or Family Care: No Living arrangements: alone Occupation/Education: occupation Additional occupation/education comments: Employed at [employer] Gender identity (if verbalized by the patient): Female Sexual Orientation (if Verbalized by the Patient): Straight or Heterosexual Spiritual care concerns: No Exam Const: General: no acute distress Orientation/consciousness: patient oriented x3 Limitations: no limitations HENMT: Head: normal to inspection Eyes: Conjunctivae: conjunctivae normal Neck: Neck: normal visual inspection Chest: Chest palpation & inspection: normal inspection of the chest Resp: Effort & Inspection: normal respiratory effort Auscultation: clear to auscultation bilaterally Cardio: Rate: regular rate Rhythm: regular rhythm GI: GI Palp: Yes Soft to palpation Skin: Wounds: wounds noted Other: 2Cm laceration left posterior scalp currently no bleeding Neuro: General: patient oriented x3, moves all extremities, no meningeal signs and no focal motor deficits Course Course Emergency Course: patient was evaluated neurologically intact has a laceration and skin tear, laceration to posterior scalp was repaired with 4 sidra the area was cleaned and irrigated. Vital Signs Vital signs: Vital Signs Temperature 36.6 C 10/31/24 08:26 Pulse Rate 100 10/31/24 08:26 Respiratory Rate 18 10/31/24 08:26 Blood Pressure 112/58 L 10/31/24 08:26 Pulse Oximetry 100 10/31/24 08:26 Oxygen Delivery Room Air 10/31/24 08:26 Temperature 36.6 C 10/31/24 08:26 Pulse Rate 100 10/31/24 08:26 Respiratory Rate 18 10/31/24 08:26 Blood Pressure 112/58 L 10/31/24 08:26 Pulse Oximetry 100 10/31/24 08:26 Oxygen Delivery Room Air 10/31/24 08:26 Procedures Laceration Laceration 1: Date: 10/31/24 Time: 08:34 Site: scalp Side (If applicable): left Size (cm): 2 Description: linear Depth: simple, single layer Pre-repair: wound explored ====== Skin Level ====== Skin layer closed with: sidra Number of sutures: 4 Technique: simple, interrupted ====== Subcutaneous Layer ====== ====== Muscle Layer ====== ====== Tendon Layer ====== Critical Care Time Critical Care Time Critical Care Time: No Discharge Plan Discharge Clinical Impression: Laceration, Skin tear Patient Disposition: Home Condition: Stable Instructions: Antibiotic Form, Laceration (ED) Additional Instructions: advised to follow with primary in 1 week for suture / staple removal a posterio r scalp. Patient Language: British Prescriptions: No Action prednisone 20 mg tablet 40 mg PO DAILY Qty: 8 0RF ciprofloxacin HCl 250 mg tablet 250 mg PO Q12H Qty: 12 0RF omeprazole 40 mg capsule,delayed release(DR/EC) See Rx Instructions .ROUTE .COMPLEX Qty: 180 1RF Dose Instruction: TAKE 1 CAPSULE BY MOUTH TWICE A DAY Rx Instructions: TAKE 1 CAPSULE BY MOUTH TWICE A DAY Yupelri 175 mcg/3 mL solution for nebulization See Rx Instructions .ROUTE .COMPLEX Qty: 90 11RF Dose Instruction: USE 1 VIAL IN NEBULIZER DAILY - DO NOT MIX WITH OTHER NEB MEDS,USE BEFORE OR AFTER Rx Instructions: USE 1 VIAL IN NEBULIZER DAILY - DO NOT MIX WITH OTHER NEB MEDS,USE BEFORE OR AFTER budesonide 0.5 mg/2 mL suspension for nebulization See Rx Instructions .ROUTE .COMPLEX Qty: 60 11RF Dose Instruction: USE 1 VIAL IN NEBULIZER TWICE DAILY - rinse mouth after treatment Rx Instructions: USE 1 VIAL IN NEBULIZER TWICE DAILY - rinse mouth after treatment formoterol fumarate [Perforomist] 20 mcg/2 mL solution for nebulization See Rx Instructions .ROUTE .COMPLEX Qty: 60 11RF Dose Instruction: USE 1 VIAL IN NEBULIZER TWICE DAILY - morning and evening Rx Instructions: USE 1 VIAL IN NEBULIZER TWICE DAILY - morning and evening albuterol sulfate 2.5 mg /3 mL (0.083 %) solution for nebulization 2.5 mg inhalation DAILY PRN (Reason: shortness of breath or wheezing) Qty: 90 11RF Ohtuvayre 3 mg/2.5 mL suspension for nebulization 2.5 ml inhalation QAM AND QPM lisinopril 10 mg tablet See Rx Instructions .ROUTE .COMPLEX Qty: 90 2RF Dose Instruction: TAKE 1 TABLET BY MOUTH DAILY Rx Instructions: TAKE 1 TABLET BY MOUTH DAILY fluticasone propionate [Allergy Relief (fluticasone)] 50 mcg/actuation spray,suspension 1 spray intranasal DAILY Qty: 48 3RF Rx Instructions: administer into each nostril prednisone 10 mg tablet 10 mg PO DAILY Qty: 90 0RF Follow-up/Referrals: UNKNOWN,DOCTOR [Primary Care Provider] -
--- OUTSIDE RECORDS SUMMARY | 2024-10-31 08:42 | XMS_ITS | Clinical Summary ---
Author Organization Unknown Care Team Providers Care Motion Picture Photographer Name Role Phone YU GOINS Unavailable Unavailable BLOSSOM SPIRITUAL CARE COUNSELOR, RENA Unavailabl e Unavailable BARTOLOME CHAIRMAN PRESIDENT AND CHIEF EXECUTIVE OFFICER, PAXTON Unavailable Unavailable ALIS SUPERVISOR HEADING, BEAU Yadi vailable Unavailable PONCE JUVENILE DETENTION OFFICER [facility] OPS LEO, RN, NICHOLAS Unavailable Unavailable [place] REGISTERED NURSE, VI Unavailable Unav ailable TREER REGISTERED NURSE CASE, ALVARO Unavailab le Unavailable Payers Payer Name Policy Type Policy Number Effective Date Expira tion Date MEDICARE PALMETTO [id number] Problems Condition Name Condition Details Condition Category [...] mg rectal suppository 10-22 00:00: 00 Yes [id number] MILD PAIN / FEVER 1 supposi tory, rectal EVERY 4 HOURS 1 suppositor y, rectal EVERY 4 HOURS (route: rectal) Med Classific ation: Analgesic , Anti-infl ammatory or Antipyret ic bisacodyl 10 mg rectal suppository 10-22 00:00: 00 Yes [id number] CONSTIPATIO N 1 supposi tory, rectal DAILY 1 suppositor y, rectal DAILY (route: rectal) Med Classific ation: Gastroint estinal Therapy Agents bisacodyl 5 mg tablet,juan alberto yed release 10-22 00:00: 00 Yes [id number] CONSTIPATIO N 1 tablet ONCE DAILY 1 tablet ONCE DAILY (route: oral) Med Classific ation: Gastroint estinal Therapy Agents budesonide 0.25 mg/2 mL suspension for nebulizatio n 10-22 00:00: 00 Yes [id number] COPD 2 mL TWICE DAILY 2 mL TWICE DAILY (route: inhalation ) Med Classific ation: Respirato ry Therapy Agents Flonase Allergy Relief 50 mcg/actuati on nasal spray,suspe nsion 10-22 00:00: 00 Yes [id number] ALLERGIES 1 spray ONCE DAILY 1 spray ONCE DAILY (route: nasal) Alternate Route: NOSTRIL - BOTH. Med Classific ation: Respirato ry Therapy Agents haloperidol lactate 2 mg/mL oral concentrate 10-22 00:00: 00 Yes [id number] SEVERE AGITATION / NAUSEA / VOMITING 0.5 mL EVERY 4 HOURS 0.5 mL EVERY 4 HOURS (route: oral) Med Classific ation: Central Nervous System Agents hyoscyamine 0.125 mg sublingual tablet 10-22 00:00: 00 Yes [id number] EXCESSIVE SECRETIONS 1 tablet EVERY 4 HOURS 1 tablet EVERY 4 HOURS (route: sublingual ) Med Classific ation: Gastroint estinal Therapy Agents lisinopril 10 mg tablet 10-22 00:00: 00 Yes [id number] HTN 1 tablet ONCE DAILY 1 tablet ONCE DAILY (route: oral) Med Classific ation: Cardiovas cular Therapy Agents lorazepam 1 mg tablet 10-22 00:00: 00 Yes [id number] ANXIETY / RESTLESSNES S 1 tablet EVERY 4 HOURS 1 tablet EVERY 4 HOURS (route: oral) Med Classific ation: Central Nervous System Agents morphine concentrate 100 mg/5 mL (20 mg/mL) oral solution 10-22 00:00: 00 Yes [id number] PAIN / SHORTNESS OF BREATH 0.25 mL HOURLY 0.25 mL HOURLY (route: oral) Med Classific ation: Analgesic , Anti-infl ammatory or Antipyret ic omeprazole 40 mg capsule,del ayed release 10-22 00:00: 00 Yes [id number] HEART BURN 1 capsule TWICE DAILY 1 capsule TWICE DAILY (route: oral) Med Classific ation: Gastroint estinal Therapy Agents prednisone 10 mg tablet 10-22 00:00: 00 Yes [id number] COPD 1 tablet ONCE DAILY 1 tablet ONCE DAILY (route: oral) Med Classific ation: Endocrine Robitussin Cough-Chest Congestion DM 5 mg-100 mg/5 mL oral liquid 10-22 00:00: 00 Yes [id number] COUGH 20 mL EVERY 4 HOURS 20 mL EVERY 4 HOURS (route: oral) Med Classific ation: Respirato ry Therapy Agents Sudafed 12 Hour 120 mg tablet,exte nded release 10-22 00:00: 00 Yes [id number] SINUSES 1 tablet EVERY 12 HOURS 1 tablet EVERY 12 HOURS (route: oral) Med Classific ation: Respirato ry Therapy Agents Tylenol Extra Strength 500 mg tablet 10-22 00:00: 00 Yes [id number] PAIN/FEVER 2 tablet EVERY 8 HOURS 2 tablet EVERY 8 HOURS (route: oral) Med Classific ation: Analgesic , Anti-infl ammatory or Antipyret ic Yupelri 175 mcg/3 mL solution for nebulizatio n 10-22 00:00: 00 Yes [id number] COPD 3 mL ONCE DAILY 3 mL ONC E DAILY (route: inhalation ) Med Classific ation: Respirato ry Therapy Agents oxygen gas for inhalation 10-22 00:00: 00 Yes [id number] SOB 6 Liter O2 - CONTINUOUS 6 Liter O2 - CONTINUOUS (route: inhalation ) Alternate Route: O2 - NASAL CANNULA. Med Classific ation: Medical Supplies and Durable Medical Equipment (DME) albuterol sulfate 2.5 mg/3 mL (0.083 %) solution for nebulizatio n 10-26 00:00: 00 Yes [id number] SOB WHEEZING 3 mL EVERY 6 HOURS [...] Planned Date Details Comments Future Scheduled Test FRENCH BINDER TO EVALUATE KOBI AND DEVELOP A NURSING PLAN OF CARE. [code = FRENCH BINDER TO EVALUATE KOBI AND DEVELOP A NURSING [...] DEVELOP A PLAN OF CARE. [code = PLANNING MANAGER TO EVALUATE SOCIAL, EMOTIONAL AND FINANCIAL FACTORS RELATED TO THE PATIENT'S ILLNESS, NEED FOR ADDITIONAL CARE/RESOURCES, ADJUSTMENT TO CARE AND DEVELOP A PLAN OF CARE.] Future Scheduled Test SOUND PRINTER T O EVALUATE PATIENT/FAMILY/CAREGIVER AND DEVELOP A PLAN OF CARE. [code = SOUND PRINTER TO EVALUATE PATIENT/FAMILY/CAREGIVER AND DEVELOP A PLAN [...] TO PATIENT. Goal Provider Goal - A PLANNING MANAGER PLAN OF CARE WILL BE ESTABLISHED WITHIN 5 DAYS. Goal Provider Goal - A SOUND PRINTER PLAN OF CARE WILL BE ESTABLISHED WITHIN [...] Notes <paragraph>[Visit Date: 2024 by BEAU SNELL SUPERVISOR HEADING]:</paragraph><paragraph>UPON ARRIVAL CLIENT WAS FOUND ON BATHROOM FLOOR [...] Date: 2024 by RENA CERRATO SPIRITUAL CARE COUNSELOR]:</paragraph><paragraph>SOUND PRINTER VISITED WITH PT TODAY TO PROVIDE ANY NEEDED SPIRITUAL OR EMOTIONAL SUPPORT AND TO COMPLETE ASSESSMENT OF CURRENT NEEDS AND STATUS. PT HAS A ORTHODOXY ZACK BACKGROUND BUT IS NOT A MEMBER OF ANY MANDAEISM. PT HAS STRONG ZACK AND IS ACCEPTING OF STATUS AND STATED SHE IS READY TO WHEN THE TIME COMES. PT RECEIVES GREAT DEAL OF SUPPORT FROM FAMILY. VISIT FREQUENCY WILL BE 2X PER MONTH FOR SPIRITUAL AND EMOTIONAL SUPPORT NEEDED.</paragraph> <paragraph>[Visit Date: 2024 by BEAU SNELL SUPERVISOR HEADING]:</paragraph><paragraph>UPON ARRIVAL CLIENT WAS SITTING ON COUCH I [...] THEM TO CALL. PATIENT PLANS TO USE [facility] IN [place]. SW WILL CONTINUE TO MONITOR FOR NEEDS [...] A WEEK TO HELP WITH A FEW PRECISION FARMING SPECIALIST AND SHOPPING. PT IS RESTING IN HER [...] CALL WITH QUESTIONS OR CONCERNS. READY FOR MEAT AND SEAFOOD CLERK TO VISIT TOMORROW. NEB TREATMENTS ORDERED.</paragraph> Encounters Start Date/Time End Date/Time Encounter Type Admission Type Attending [facility] Care Facility Care Department Encounter ID Discharge Date Discharge Status Discharge Condition Discharge Reason Percent Goals Met 2024-10-22 00:00:00 2025-01-19 00:00:00 Outpatient NEW ADMISSION VI [facility] [id number] 59. 50
--- OUTSIDE RECORDS SUMMARY | 2024-10-31 08:42 | XMS_ITS | Clinical Summary ---
Author Organization Unknown Care Team Providers Care Associate Brand Manager Name Role Phone YU GOINS Unavailable Unavailable BLOSSOM SPIRITUAL CARE COUNSELOR, RENA Unavailabl e Unavailable BARTOLOME TANK CAR MECHANIC, PAXTON Unavailable Unavailable [employer]IS BIOMEDICAL ENGINEERING PROFESSOR, BEAU Yadi vailable Unavailable [facility], RN, NICHOLAS Unavailable Unavailable [place] REGISTERED NURSE, VI Unavailable Unav ailable TREER REGISTERED NURSE CASE, ALVARO Unavailab le Unavailable Payers Payer Name Policy Type Policy Number Effective Date Expira tion Date MEDICARE [place] [id number] Problems Condition Name Condition Details Condition Category [...] mg rectal suppository 10-22 00:00: 00 Yes [id number] MILD PAIN / FEVER 1 supposi tory, rectal EVERY 4 HOURS 1 suppositor y, rectal EVERY 4 HOURS (route: rectal) Med Classific ation: Analgesic , Anti-infl ammatory or Antipyret ic bisacodyl 10 mg rectal suppository 10-22 00:00: 00 Yes [id number] CONSTIPATIO N 1 supposi tory, rectal DAILY 1 suppositor y, rectal DAILY (route: rectal) Med Classific ation: Gastroint estinal Therapy Agents bisacodyl 5 mg tablet,juan alberto yed release 10-22 00:00: 00 Yes [id number] CONSTIPATIO N 1 tablet ONCE DAILY 1 tablet ONCE DAILY (route: oral) Med Classific ation: Gastroint estinal Therapy Agents budesonide 0.25 mg/2 mL suspension for nebulizatio n 10-22 00:00: 00 Yes [id number] COPD 2 mL TWICE DAILY 2 mL TWICE DAILY (route: inhalation ) Med Classific ation: Respirato ry Therapy Agents Flonase Allergy Relief 50 mcg/actuati on nasal spray,suspe nsion 10-22 00:00: 00 Yes [id number] ALLERGIES 1 spray ONCE DAILY 1 spray ONCE DAILY (route: nasal) Alternate Route: NOSTRIL - BOTH. Med Classific ation: Respirato ry Therapy Agents haloperidol lactate 2 mg/mL oral concentrate 10-22 00:00: 00 Yes [id number] SEVERE AGITATION / NAUSEA / VOMITING 0.5 mL EVERY 4 HOURS 0.5 mL EVERY 4 HOURS (route: oral) Med Classific ation: Central Nervous System Agents hyoscyamine 0.125 mg sublingual tablet 10-22 00:00: 00 Yes [id number] EXCESSIVE SECRETIONS 1 tablet EVERY 4 HOURS 1 tablet EVERY 4 HOURS (route: sublingual ) Med Classific ation: Gastroint estinal Therapy Agents lisinopril 10 mg tablet 10-22 00:00: 00 Yes [id number] HTN 1 tablet ONCE DAILY 1 tablet ONCE DAILY (route: oral) Med Classific ation: Cardiovas cular Therapy Agents lorazepam 1 mg tablet 10-22 00:00: 00 Yes [id number] ANXIETY / RESTLESSNES S 1 tablet EVERY 4 HOURS 1 tablet EVERY 4 HOURS (route: oral) Med Classific ation: Central Nervous System Agents morphine concentrate 100 mg/5 mL (20 mg/mL) oral solution 10-22 00:00: 00 Yes [id number] PAIN / SHORTNESS OF BREATH 0.25 mL HOURLY 0.25 mL HOURLY (route: oral) Med Classific ation: Analgesic , Anti-infl ammatory or Antipyret ic omeprazole 40 mg capsule,del ayed release 10-22 00:00: 00 Yes [id number] HEART BURN 1 capsule TWICE DAILY 1 capsule TWICE DAILY (route: oral) Med Classific ation: Gastroint estinal Therapy Agents prednisone 10 mg tablet 10-22 00:00: 00 Yes [id number] COPD 1 tablet ONCE DAILY 1 tablet ONCE DAILY (route: oral) Med Classific ation: Endocrine Robitussin Cough-Chest Congestion DM 5 mg-100 mg/5 mL oral liquid 10-22 00:00: 00 Yes [id number] COUGH 20 mL EVERY 4 HOURS 20 mL EVERY 4 HOURS (route: oral) Med Classific ation: Respirato ry Therapy Agents Sudafed 12 Hour 120 mg tablet,exte nded release 10-22 00:00: 00 Yes [id number] SINUSES 1 tablet EVERY 12 HOURS 1 tablet EVERY 12 HOURS (route: oral) Med Classific ation: Respirato ry Therapy Agents Tylenol Extra Strength 500 mg tablet 10-22 00:00: 00 Yes [id number] PAIN/FEVER 2 tablet EVERY 8 HOURS 2 tablet EVERY 8 HOURS (route: oral) Med Classific ation: Analgesic , Anti-infl ammatory or Antipyret ic Yupelri 175 mcg/3 mL solution for nebulizatio n 10-22 00:00: 00 Yes [id number] COPD 3 mL ONCE DAILY 3 mL ONC E DAILY (route: inhalation ) Med Classific ation: Respirato ry Therapy Agents oxygen gas for inhalation 10-22 00:00: 00 Yes [id number] SOB 6 Liter O2 - CONTINUOUS 6 Liter O2 - CONTINUOUS (route: inhalation ) Alternate Route: O2 - NASAL CANNULA. Med Classific ation: Medical Supplies and Durable Medical Equipment (DME) albuterol sulfate 2.5 mg/3 mL (0.083 %) solution for nebulizatio n 10-26 00:00: 00 Yes [id number] SOB WHEEZING 3 mL EVERY 6 HOURS [...] Planned Date Details Comments Future Scheduled Test DIRECTOR OF MEDICAL EDUCATION TO EVALUATE KO[place] AND DEVELOP A NURSING PLAN OF CARE. [code = DIRECTOR OF MEDICAL EDUCATION TO EVALUATE [place] AND DEVELOP A NURSING [...] DEVELOP A PLAN OF CARE. [code = FOURTH GRADE TEACHER TO EVALUATE SOCIAL, EMOTIONAL AND FINANCIAL FACTORS RELATED TO THE PATIENT'S ILLNESS, NEED FOR ADDITIONAL CARE/RESOURCES, ADJUSTMENT TO CARE AND DEVELOP A PLAN OF CARE.] Future Scheduled Test SPRING FITTER HELPER T O EVALUATE PATIENT/FAMILY/CAREGIVER AND DEVELOP A PLAN OF CARE. [code = SPRING FITTER HELPER TO EVALUATE PATIENT/FAMILY/CAREGIVER AND DEVELOP A PLAN [...] TO PATIENT. Goal Provider Goal - A FOURTH GRADE TEACHER PLAN OF CARE WILL BE ESTABLISHED WITHIN 5 DAYS. Goal Provider Goal - A SPRING FITTER HELPER PLAN OF CARE WILL BE ESTABLISHED WITHIN [...] Notes <paragraph>[Visit Date: 2024 by BEAU SNELL BIOMEDICAL ENGINEERING PROFESSOR]:</paragraph><paragraph>UPON ARRIVAL CLIENT WAS FOUND ON BATHROOM FLOOR [...] Date: 2024 by RENA CERRATO SPIRITUAL CARE COUNSELOR]:</paragraph><paragraph>SPRING FITTER HELPER VISITED WITH PT TODAY TO PROVIDE ANY NEEDED SPIRITUAL OR EMOTIONAL SUPPORT AND TO COMPLETE ASSESSMENT OF CURRENT NEEDS AND STATUS. PT HAS A RESTORATION ZACK BACKGROUND BUT IS NOT A MEMBER OF ANY RELIGION. PT HAS STRONG ZACK AND IS ACCEPTING OF STATUS AND STATED SHE IS READY TO WHEN THE TIME COMES. PT RECEIVES GREAT DEAL OF SUPPORT FROM FAMILY. VISIT FREQUENCY WILL BE 2X PER MONTH FOR SPIRITUAL AND EMOTIONAL SUPPORT NEEDED.</paragraph> <paragraph>[Visit Date: 2024 by BEAU SNELL BIOMEDICAL ENGINEERING PROFESSOR]:</paragraph><paragraph>UPON ARRIVAL CLIENT WAS SITTING ON COUCH I [...] THEM TO CALL. PATIENT PLANS TO USE [facility] IN [place]. SW WILL CONTINUE TO MONITOR FOR NEEDS [...] A WEEK TO HELP WITH A FEW MEDICAL PRACTICE ASSISTANT AND SHOPPING. PT IS RESTING IN HER [...] CALL WITH QUESTIONS OR CONCERNS. READY FOR GARAGE HELPER TO VISIT TOMORROW. NEB TREATMENTS ORDERED.</paragraph> Encounters Start Date/Time End Date/Time Encounter Type Admission Type Attending [facility] Care Facility Care Department Encounter ID Discharge Date Discharge Status Discharge Condition Discharge Reason Percent Goals Met 2024-10-22 00:00:00 2025-01-19 00:00:00 Outpatient NEW ADMISSION VI G[facility] [id number] 59. [id number]
== END 2024-10-31 09:15 | disposition hospice, home (50) ==
LOC: CHSED 08:39
PROVIDERS: Emergency Provider Emergency Medicine; PCP Internal Medicine
DX: S01.01XA Laceration without foreign body of scalp, initial encounter (principal); S51.811A Laceration without foreign body of right forearm, initial encounter; S80.11XA Contusion of right lower leg, initial encounter; J44.9 Chronic obstructive pulmonary disease, unspecified; Z85.3 Personal history of malignant neoplasm of breast; Z86.718 Personal history of other venous thrombosis and embolism; Z87.891 Personal history of nicotine dependence; W18.30XA Fall on same level, unspecified, initial encounter
CPT/HCPCS: 12001; 73590; 73610; 99284